=== PATIENT | female | born 1940 | race Caucasian/White ===

== ENCOUNTER 2019-11-14 10:44 | Outpatient (CLI) | payer MEDICARE, MEDICAID, SELFPAY ==
[2019-11-14 13:26] VITALS: O2SAT 87; O2SAT 92; O2SAT 94
== END 2019-11-14 10:45 | disposition home or self-care (01) ==
LOC: RAD 10:50
PROVIDERS: Family Provider Family Medicine; PCP Family Medicine; Visit Provider Internal Medicine Critical Care Medicine
DX: R06.00 Dyspnea, unspecified (principal)
CPT/HCPCS: 94010; 94726; 94729

== ENCOUNTER 2020-07-11 11:13 | Emergency (ER) | payer MEDICARE, MEDICAID, SELFPAY ==
[2020-07-11 11:30] VITALS: BP 150/89; PULSE 78; RESP 20; TEMP 36.8; O2SAT 99; BMI 31.1
--- NOTE | 2020-07-11 11:47 | W.ED.SYNCOPE ---
HPI - Syncope General: Chief Complaint: Syncope Stated Complaint: DIZZY WITH FALL HR AGO Time Seen by Provider: 07/11/20 11:43 History of Present Illness: HPI narrative: 80-year-old female presents the emergency room complaint of a syncopal episode at home patient was looking for a can of food in her pantry she looked up got lightheaded dizzy fell backwards landed on her tailbone and hit her head. She had no complete loss of consciousness. She is not on any blood thinners. Denies any chest pain. MD complaint: felt faint, almost passed out and collapsed Onset (ago): minute(s) Prodromal symptoms: lightheaded Witnessed: No Context: during exertion Injuries sustained associated with event: none Associated symptoms: Reports lightheadedness; Deny abdominal pain, chest pain, fever(s), headache(s), nausea, short of breath, vertigo or weakness Treatments prior to arrival: none Review of Systems Const: Denies: fever(s) ENMT: Denies: throat pain, ear or mastoid pain, nasal discharge or nasal congestion Card: Reports: lightheadedness; Denies: chest pain Resp: Denies: dyspnea, productive cough or non-productive cough GI: Denies: abdominal pain or nausea : Denies: flank pain, difficulty voiding, dysuria, urinary frequency or urinary urgency Skin/Breast: Denies: rash or pruritus Neuro: Denies: headache(s) or vertigo PFS ED PFSH: Medical History (Updated 07/11/20 @ 13:31 by Osman García DO) Colon cancer Congestive heart failure Coronary artery disease Surgical History (Updated 07/11/20 @ 13:31 by Osman García DO) S/P CABG (coronary artery bypass graft) Social History (Updated 07/11/20 @ 13:32 by Osman García DO) Smoking and tobacco status: former smoker Alcohol intake: never Physical Exam Const: COMMON NORMALS: no acute distress GENERAL APPEARANCE: cooperative and comfortable ORIENTATION/CONSCIOUSNESS: Yes awake, Yes oriented to person, Yes oriented to place and Yes oriented to time HENMT: COMMON NORMALS: normocephalic, atraumatic and hearing grossly normal bilaterally HEAD & SCALP: normocephalic and atraumatic Eye: COMMON NORMALS: Equal, round and reactive pupils present, EOMs intact bilaterally, conjunctivae normal and no scleral icterus CONJUNCTIVA: Yes conjunctivae normal PUPIL: Yes Equal, round and reactive pupils present Neck/C-Spine: COMMON NORMALS: full ROM, no lymphadenopathy, supple and no JVD Lymph: LYMPHATIC: no lymphadenopathy noted and no lymphedema noted Resp: COMMON NORMALS: normal respiratory effort, No retractions, No use of accessory muscles and clear to auscultation bilaterally AUSCULTATION: clear to auscultation bilaterally Cardio: COMMON NORMALS: no JVD, regular rate, regular rhythm and No murmurs present (Cardio) RATE: regular rate RHYTHM: regular rhythm GI: COMMON NORMALS: Soft to palpation and No hepatosplenomegaly present AUSCULTATION: Yes normoactive bowel sounds PALPATION: Yes Soft to palpation, No Tenderness to palpation present (GI), No Guarding due to palpation present (GI) and Yes No hepatosplenomegaly present Extremity: COMMON NORMALS: normal to inspection, capillary refill normal, no clubbing, cyanosis or edema, no calf tenderness and no pedal edema Neuro: SENSORIUM/ORIENTATION: Yes oriented to person, Yes oriented to place and Yes oriented to time Skin: COMMON NORMALS: no rashes or lesions noted GENERAL SKIN EXAM: no rashes or lesions noted Course Vital Signs: Vital signs: Vital Signs Temperature 98.2 F 07/11/20 11:30 Pulse Rate 76 07/11/20 13:30 Respiratory Rate 17 07/11/20 13:30 Blood Pressure 172/92 07/11/20 13:30 Pulse Oximetry 100 07/11/20 13:30 MDM - Syncope Lab Data: Labs: Lab Results 07/11/20 07/11/20 07/11/20 Range/Units 12:18 12:37 12:37 WBC 8.3 (4.0-10.0) 10^3/ uL RBC 3.94 L (4.1-5.3) 10^6/u L Hgb 11.2 L (11.5-15.3) g/dL Hct 37.2 (37.0-47.0) % MCV 94.4 (81-99) fL MCH 28.4 (28.0-34.0) pg MCHC 30.1 (30.0-36.0) g/dL RDW 14.9 (12.1-15.1) % Plt Count 272 (130-400) 10^3/c mm MPV 9.7 (7.4-10.4) fL Neut % (Auto) 51.2 % Lymph % (Auto) 36.7 % Sab[place] % (Auto) 7.5 % Eos % (Auto) 3.8 % Baso % (Auto) 0.4 % Neut # (Auto) 4.24 (1.8-7.7) 10^3/u L Lymph # (Auto) 3.0 (0.8-4.8) 10^3/u L [place] # (Auto) 0.6 (0.2-0.9) 10^3/u L Eos # (Auto) 0.3 (0.0-0.8) 10^3/u L Baso # (Auto) 0.0 (0.0-0.1) 10^3/u L Nucleated RBC % (a uto) 0 % Nucleated RBCs # 0.0 /100WBC Sodium 139 (136-145) mmol/L Potassium 4.7 (3.5-5.1) mmol/L Chloride 101 (98-107) mmol/L Carbon Dioxide 24 (22-29) mmol/L Anion Gap 18.7 (5-19) BUN 13 (8-23) mg/dL Creatinine 0.9 (0.5-0.9) mg/dL GFR Calculation Not Reportable Glucose 117 H (65-115) mg/dL Calculated Osmolal ity 285 (285-295) mOsm/k g Calcium 9.1 (8.5-10.5) mg/dL Total Bilirubin 0.4 (0.15-1.2) mg/dL AST 25 (0-32) U/L ALT 14 (0-33) U/L Alkaline Phosphata se 115 H (35-105) IU/L Total Protein 8.4 (6.6-8.7) g/dL Albumin 4.4 (3.5-5.2) g/dL Globulin 4.0 (1.3-4.6) g/dL Urine Color Yellow (Yellow) Urine Appearance Sl cloudy A (CLEAR) Urine pH 5 (5-7) Ur Specific Gravit y 1.020 (1.005-1.030) Urine Protein Trace (Negative) Urine Glucose (UA) Norm (Normal) Urine Ketones Negative (Negative) Urine Blood 2+ H (Negative) Urine Nitrate Negative (Negative) Urine Bilirubin Neg (NEGATIVE) Urine Urobilinogen Neg (Negative) mg/dL Ur Leukocyte Angelique ase 2+ H (Negative) Urine RBC 0-4 H (0-2) /hpf Urine WBC 25-40 H (0-5) /hpf Ur Squamous Epith Cells 0-4 H (0-5) Amorphous Sediment Not Reportable Urine Bacteria 2+ H (NONE) Discharge Plan Discharge Patient Disposition: Home Clinical Impression: Near syncope, Cystitis Condition: Stable Prescriptions: New Macrobid 100 mg capsule 100 mg PO BID 7 Days Qty: 14 RF: 0 No Action atorvastatin 40 mg tablet 40 mg PO DAILY RF: 0 loperamide 2 mg capsule See Rx Instructions .ROUTE .COMPLEX RF: 0 Aspir-81 81 mg Tablet,Delayed Release (Dr/Ec) See Rx Instructions .ROUTE .COMPLEX RF: 0 Tylenol Extra Strength 500 mg Tablet 1,000 mg PO Q4H PRN (Reason: Pain) RF: 0 levothyroxine 75 mcg tablet 75 mcg PO DAILY RF: 0 famotidine 20 mg tablet 20 mg PO BID RF: 0 metoprolol succinate 25 mg tablet extended release 24 hr 25 mg PO DAILY RF: 0 Discharge Orders: Discharge Order (Routine); Ordered 07/11/20 Ordered By: Osman García Referrals: Luis Fernando Solomon DO [Primary Care Provider] - Discharge Diet: Usual diet Discharge Activity: Resume usual activity Activity Restrictions/Additional Instructions: Follow-up with primary care as needed return if that worsening or changing symptoms Discharge Date/Time: 07/11/20 13:45 Coding Level of Care Code ED 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
--- NOTE | 2020-07-11 11:49 | XRR_ITS ---
PROCEDURE INFORMATION: Exam: XR Chest, 1 View Exam date and time: 07/11/2020 12:11 PM Age: 80 years old Clinical indication: Cough and dyspnea; Prior surgery; Surgery type: Heart; Additional info: Dyspnea/cough, dizzy TECHNIQUE: Imaging protocol: XR of the chest Views: 1 view. COMPARISON: CR Chest 1 [place] [id number] 03/23/2016 1:31 PM FINDINGS: Lungs: Interstitial prominence within the lung parenchyma diffusely left lung base greater than right. Favor fibrosis. Consider correlation with CT. Pleural space: Unremarkable. No pleural effusion. No pneumothorax. Heart/Mediastinum: cardiac silhouette is enlarged. Prior sternotomy. Bones/joints: See Heart/Mediastinum finding. XR/XR chest 1V portable [id number] IMPRESSION: Interstitial prominence within the lung parenchyma diffusely left lung base greater than right. Favor fibrosis. Consider correlation with CT.
--- NOTE | 2020-07-11 11:49 | CT_ITS ---
WS: [id number] CT HEAD NONCONTRAST HISTORY: fall, closed head injury TECHNIQUE: Contiguous axial imaging performed through the brain in 2.5 mm imaging. Bone and soft tiss ue windows. Sagittal and coronal reformats reviewed. All CT scans at [facility] use at le ast one of these dose optimization techniques: automated exposure control; mA and/or kV adjustment pe r patient size (includes targeted exams where dose is matched to clinical indication); or iterative r econstruction. DLP: 1683.65 mGy.cm COMPARISON: None available. No acute intracranial hemorrhage, midline shift or mass effect. Mild atrophy and mild chronic ischemic disease. Small prior lacunar infarcts near the caudate heads. Small lacunar infarcts in the external capsules bilaterally. Ventricles: Normal size with no hydrocephalus. Paranasal sinuses: As visualized are clear. Mastoid air cells: Well pneumatized. Calvarium and scalp: No fracture. Small amount of scalp edema over the posterior parietal region. CT/CT head wo con* [id number] IMPRESSION: 1. No acute intracranial hemorrhage or edema. 2. Mild cerebral atrophy and bilateral lacunar infarcts as above. 3. Minimal amount of scalp edema over the posterior midline parietal region.
--- NOTE | 2020-07-11 11:49 | ECG_ITS ---
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 Measurements Intervals [place] Rate: 76 P: MA: -1 QRS: 7 QRSD: 100 T: -4 QT: 405 QTc: 458 Interpretive Statements ATRIAL FIBRILLATION INCOMPLETE RIGHT BUNDLE BRANCH BLOCK [90+ ms QRS DURATION, TERMINAL R IN V1/V2, 40+ ms S IN I/aVL/V4/V5/V6] ABNORMAL RHYTHM ECG Compared to ECG 05/10/2019 10:38:19 Incomplete right bundle-branch block now present Sinus rhythm no longer present Electronically Signed On 07-11-2020 18:50:33 CDT by Mario Alberto Douglas M.D. [email or web address] centerHedvigket[id number]
[2020-07-11 12:37] VITALS: BP 189/92; PULSE 79; RESP 24; O2SAT 99
[2020-07-11 12:42] VITALS: BP 175/110; BP 189/92; BP 195/106; PULSE 79; PULSE 85; PULSE 91
[2020-07-11 12:43] LABS: Urine Color Yellow (Yellow); pH Urine 5 (5-7)
[2020-07-11 12:44] LABS: Bilirubin Urine Neg (NEGATIVE); Blood Urine 2+ (Negative); Glucose Urine UA Norm (Normal); Ketones Urine Negative (Negative); Leukocyte Esterase Urine 2+ (Negative); Nitrate Urine Negative (Negative); Protein Urine Trace (Negative); Urobilinogen Urine Neg (Negative)
[2020-07-11 12:44] LABS: Basophils % 0.4 %; Eosinophils # 0.3 10^3/uL (0.0-0.8); Eosinophils % 3.8 %; Hematocrit 37.2 % (37.0-47.0); Hemoglobin 11.2 g/dL (11.5-15.3); Lymphocytes % 36.7 %; Mean Corpuscular HGB Conc 30.1 g/dL (30.0-36.0); Mean Corpuscular Hemoglobin 28.4 pg (28.0-34.0); Mean Corpuscular Volume 94.4 fL (81-99); Mean Platelet Volume 9.7 fL (7.4-10.4); Monocytes # 0.6 10^3/uL (0.2-0.9); Monocytes % 7.5 %; Neutrophils # 4.24 10^3/uL (1.8-7.7); Neutrophils % 51.2 %; Nucleated Red Blood Cells % 0 %; Platelet Count 272 10^3/cmm (130-400); Red Blood Count 3.94 10^6/uL (4.1-5.3); Red Cell Distribution Width 14.9 % (12.1-15.1); White Blood Count 8.3 10^3/uL (4.0-10.0)
[2020-07-11 12:45] LABS: Add Urine Microscopic? YES; RBC Urine 0-4 /hpf (0-2); WBC Urine 25-40 /hpf (0-5)
[2020-07-11 12:46] LABS: Add Urine Culture? No; Bacteria Urine 2+; Squamous Epithelial Cell Urine 0-4 (0-5)
[2020-07-11 13:03] LABS: Alanine Aminotransferase 14 U/L (0-33); Albumin Level 4.4 g/dL (3.5-5.2); Alkaline Phosphatase 115 IU/L (35-105); Anion Gap 18.7 (5-19); Aspartate Amino Transferase 25 U/L (0-32); Blood Urea Nitrogen 13 mg/dL (8-23); Calcium 9.1 mg/dL (8.5-10.5); Carbon Dioxide 24 mmol/L (22-29); Chloride 101 mmol/L (98-107); Glucose 117 mg/dL (65-115); Osmolality Calculated 285 mOsm/kg (285-295); Potassium 4.7 mmol/L (3.5-5.1); Sodium 139 mmol/L (136-145); Total Bilirubin 0.4 mg/dL (0.15-1.2); Total Protein 8.4 g/dL (6.6-8.7)
[2020-07-11 13:30] VITALS: BP 172/92; PULSE 76; RESP 17; O2SAT 100
== END 2020-07-11 13:45 | disposition home or self-care (01) ==
PROVIDERS: Emergency Provider Family Medicine; PCP Family Medicine
DX: R55 Syncope and collapse (principal); N30.90 Cystitis, unspecified without hematuria; Z79.82 Long term (current) use of aspirin; Z85.038 Personal history of other malignant neoplasm of large intestine; I50.9 Heart failure, unspecified; I25.10 Atherosclerotic heart disease of native coronary artery without angina pectoris; Z95.1 Presence of aortocoronary bypass graft; Z87.891 Personal history of nicotine dependence
CPT/HCPCS: 12345; 36415; 70450; 71045; 80053; 81001; 85025; 93005; 99284

== ENCOUNTER 2021-02-13 16:28 | Inpatient (IN) | payer MEDICARE, MEDICAID, SELFPAY ==
[2021-02-13] VITALS (28 sets, daily range): BP systolic 120–154; BP diastolic 47–87; PULSE 0–124; RESP 18–35; TEMP 36.4–36.9; O2SAT 93–100; BMI 32.1
--- NOTE | 2021-02-13 16:33 | XR_ITS ---
WS: [id number] Portable AP upright chest, 02/13/2021 Clinical Data: dyspnea Comparison: Portable chest, 07/11/2020. Findings: Bilateral interstitial changes seen throughout the lungs which remain the same. The heart i s enlarged. Midline sternotomy sutures are present. The aortic arch and descending aorta show calcifi cation and mild tortuosity. No nodules, masses or effusions are seen. No pneumothorax or pneumonia is present. There is osteoarthritis of the right shoulder joint. XR/XR chest 1V portable [id number] Impression: 1. Chronic interstitial changes throughout both lungs. 2. Atherosclerosis and cardiomegaly.
--- NOTE | 2021-02-13 16:39 | ECG_ITS ---
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
--- NOTE | 2021-02-13 17:03 | ED_ITS ---
HPI - SOB/Dyspnea General: Chief Complaint: Shortness of Breath/Dyspnea Stated Complaint: DIFF BREATHING, AFIB Time Seen by Provider: 02/13/21 16:33 History of Present Illness: HPI Narrative: Is an 81-year-old female with past medical history atrial fibrillation on Eliquis, congestive heart failure, COPD with 2 L oxygen at home who comes to the ER complaining of increased shortness of breath for days to weeks she says up to a month. She says she has general weakness and feels fatigued and has not been able to do the activities she normally does because of her shortness of breath. MD elicited complaint: shortness of breath Pertinent past history: COPD and congestive heart failure Severity: moderate Exacerbating factors: exertion Relieving factors: oxygen Known history of: COPD, congestive heart failure and other (A. fib) Associated symptoms: Deny abdominal pain, chest pain, dizziness, extremity pain, orthopnea, palpitations or polyuria Review of Systems General: Reports: 10 or more systems reviewed and unremarkable except in HPI and below Const: Denies: fatigue Eyes: Denies: change in vision, blurry vision or eye redness ENMT: Denies: throat pain, swelling of lips/tongue, ear or mastoid pain or nasal congestion Card: Denies: chest pain, palpitations, irregular heart rhythm, edema, dyspnea on exertion or orthopnea Resp: Denies: dyspnea, productive cough or non-productive cough GI: Denies: abdominal pain, diarrhea or GI cramping : Denies: flank pain, difficulty voiding, urinary frequency or urinary urgency Musc: Denies: neck pain, back pain, extremity pain, joint pain, joint redness, limited range of motion or muscle weakness Skin/Breast: Denies: rash, pruritus, erythema, skin pain or skin tenderness Neuro: Denies: headache(s), numbness in extremities, weakness in extremities, sensory changes, difficulty walking, dizziness, confusion or Slurred speech present Psych: Denies: anxiety or depression Endo: Denies: polyuria All/Imm: Denies: urticaria, throat swelling or tongue swelling PFSH ED PFSH: Medical History Anemia Arteriosclerotic coronary artery disease Cholelithiasis Colon cancer Congestive heart failure COPD (chronic obstructive pulmonary disease) 2L NC continuous use Coronary artery disease Dyslipidemia Dyspnea Sleep apnea Ventral hernia Surgical History History of hemicolectomy History of PTCA Hx of bilateral cataract extraction Hx of colonoscopy Hx of esophagogastroduodenoscopy S/P CABG (coronary artery bypass graft) Social History Smoking and tobacco status: former smoker Alcohol intake: never Substance/Drug Use: never Physical Exam Const: COMMON NORMALS: no acute distress, average body habitus, patient oriented x3, no limitations, healthy appearing, alert and well nourished GENERAL APPEARANCE: cooperative, comfortable, well kempt and well developed ORIENTATION/CONSCIOUSNESS: Yes awake, Yes oriented to person, Yes oriented to place and Yes oriented to time HENMT: COMMON NORMALS: normocephalic, external ears normal and Normal external nose present HEAD & SCALP: normal to inspection and normocephalic NOSE: Normal external nose present EXTERNAL EAR: Yes external ears normal MOUTH: Normal oral and palatal mucosa present THROAT: posterior oropharynx normal Eye: COMMON NORMALS: Equal, round and reactive pupils present and EOMs intact bilaterally GENERAL EYE: appearance normal, both eyes and all related structures PUPIL: Yes Equal, round and reactive pupils present Neck/C-Spine: COMMON NORMALS: full ROM, no lymphadenopathy, no meningeal signs and no JVD GENERAL: Yes normal visual inspection Lymph: LYMPHATIC: no lymphadenopathy noted Chest: COMMONS NORMALS: normal inspection of the chest and normal palpation of entire chest wall Resp: COMMON NORMALS: normal respiratory effort, No retractions, No use of accessory muscles, clear to auscultation bilaterally and percussion normal EFFORT & INSPECTION: Yes able to speak in complete sentences AUSCULTATION: clear to auscultation bilaterally PERCUSSION: percussion normal Cardio: COMMON NORMALS: no JVD, S1 normal heart sound present, S2 normal heart sound present and Peripheral pulses 2+ throughout RATE: tachycardic RHYTHM: abnormal rhythm regularly irregular HEART SOUNDS: S1 normal heart sound present and S2 normal heart sound present PERIPHERAL PULSES: Peripheral pulses 2+ throughout GI: COMMON NORMALS: Normal to inspection, nondistended, normoactive bowel sounds present, Soft to palpation, non-tender and no masses INSPECTION: Yes normal to inspection PALPATION: Yes Soft to palpation : COMMON NORMALS: Yes no CVA tenderness BLADDER/KIDNEY EXAM: Yes no CVA tenderness Back/Pelvis: COMMON NORMALS: no CVA tenderness, thoracic and lumbar spine normal to inspection, no thoracic nor lumbar tenderness and thoraco-lumbar ROM normal Extremity: COMMON NORMALS: normal to inspection, full ROM, capillary refill normal, no joint enlargement and no pedal edema GENERAL: Yes normal exam except as noted Neuro: COMMON NORMALS: patient oriented x3, CN's II-XII intact bilaterally, moves all extremities, no focal motor deficits, no sensory deficits noted and gait normal SENSORIUM/ORIENTATION: Yes alert, Yes oriented to person, Yes oriented to place and Yes oriented to time MENINGEAL SIGNS: Yes no meningeal signs Psych: COMMON NORMALS: mental status grossly normal, Normal thought process present, cooperative, normal affect and speech normal APPEARANCE: Yes well kempt ATTITUDE: Yes calm SPEECH: Yes normal speech THOUGHT PROCESS: Normal thought process present Skin: COMMON NORMALS: no rashes or lesions noted GENERAL SKIN EXAM: no rashes or lesions noted Course Vital Signs: Vital signs: Vital Signs Temperature 98.0 F 02/13/21 16:36 Pulse Rate 95 02/13/21 19:15 Respiratory Rate 18 02/13/21 19:15 Blood Pressure 154/63 02/13/21 19:15 Pulse Oximetry 99 02/13/21 19:15 MDM - SOB/Dyspnea MDM Narrative: Medical decision making narrative: To the ER complaining of shortness of breath and generalized weakness increasing for the last month. Her symptoms were unclear as she is satting well and breathing well on her normal 2 L. She is in A. fib with a rate in the 90s however her hemoglobin came back at 4.3 and she added that she has been having black stools over the past month as well. She takes Eliquis. Discussed with Dr. Walton who will follow the case. Discussed with Dr. Nickerson who accepts inpatient. Lab Data: Labs: Lab Results 02/13/21 02/13/21 02/13/21 Range/Units 17:27 17:27 17:27 WBC 7.3 (4.0-10.0) 10^3/ uL RBC 1.58 L (4.1-5.3) 10^6/u L Hgb 4.3 L* (11.5-15.3) g/dL Hct 15.8 L* (37.0-47.0) % MCV 100.0 H (81-99) fL MCH 27.2 L (28.0-34.0) pg MCHC 27.2 L (30.0-36.0) g/dL RDW 18.5 H (12.1-15.1) % Plt Count 310 (130-400) 10^3/c mm MPV 10.6 H (7.4-10.4) fL Neut % (Auto) 61.5 % Lymph % (Auto) 24.6 % [place] % (Auto) 10.7 % Eos % (Auto) 2.6 % Baso % (Auto) 0.3 % Neut # (Auto) 4.48 (1.8-7.7) 10^3/u L Lymph # (Auto) 1.8 (0.8-4.8) 10^3/u L [place] # (Auto) 0.8 (0.2-0.9) 10^3/u L Eos # (Auto) 0.2 (0.0-0.8) 10^3/u L Baso # (Auto) 0.0 (0.0-0.1) 10^3/u L Nucleated RBC % (a uto) 0.5 % Nucleated RBCs # 0.0 /100WBC D-Dimer 0.29 (0-0.59) ug/mIFE U Sodium Cancelled Potassium Cancelled Chloride Cancelled Carbon Dioxide Cancelled Anion Gap Cancelled BUN Cancelled Creatinine Cancelled GFR Calculation Cancelled Glucose Cancelled Calculated Osmolal ity Cancelled Lactate (0.5-2.2) mmol/L Calcium Cancelled Total Bilirubin Cancelled AST Cancelled ALT Cancelled Alkaline Phosphata se Cancelled Troponin T Baselin e (0-10) ng/L NT-Pro-B Natriuret Pep Cancelled Total Protein Cancelled Albumin Cancelled Globulin Cancelled Urine Color (Yellow) Urine Appearance (CLEAR) Urine pH (5-7) Ur Specific Gravit y (1.005-1.030) Urine Protein (Negative) Urine Glucose (UA) (Normal) Urine Ketones (Negative) Urine Blood (Negative) Urine Nitrate (Negative) Urine Bilirubin (Negative) Urine Urobilinogen (Negative) mg/dL Ur Leukocyte Angelique ase (Negative) Urine RBC (0-2) /hpf Urine WBC (0-5) /hpf Ur Squamous Epith Cells (0-5) /hpf Amorphous Sediment Urine Bacteria (NONE) /hpf SARS-CoV-2 Ag (Rap id) (Negative) 02/13/21 02/13/21 02/13/21 Range/Units 17:27 17:27 17:27 WBC (4.0-10.0) 10^3/ uL RBC (4.1-5.3) 10^6/u L Hgb (11.5-15.3) g/dL Hct (37.0-47.0) % MCV (81-99) fL MCH (28.0-34.0) pg MCHC (30.0-36.0) g/dL RDW (12.1-15.1) % Plt Count (130-400) 10^3/c mm MPV (7.4-10.4) fL Neut % (Auto) % Lymph % (Auto) % [place] % (Auto) % Eos % (Auto) % Baso % (Auto) % Neut # (Auto) (1.8-7.7) 10^3/u L Lymph # (Auto) (0.8-4.8) 10^3/u L [place] # (Auto) (0.2-0.9) 10^3/u L Eos # (Auto) (0.0-0.8) 10^3/u L Baso # (Auto) (0.0-0.1) 10^3/u L Nucleated RBC % (a uto) % Nucleated RBCs # /100WBC D-Dimer (0-0.59) ug/mIFE U Sodium Potassium Chloride Carbon Dioxide Anion Gap BUN Creatinine GFR Calculation Glucose Calculated Osmolal ity Lactate 2.2 (0.5-2.2) mmol/L Calcium Total Bilirubin AST ALT Alkaline Phosphata se Troponin T Baselin e 21 H (0-10) ng/L NT-Pro-B Natriuret Pep Total Protein Albumin Globulin Urine Color Yellow (Yellow) Urine Appearance Clear (CLEAR) Urine pH 5 (5-7) Ur Specific Gravit y 1.020 (1.005-1.030) Urine Protein Neg (Negative) Urine Glucose (UA) Norm (Normal) Urine Ketones Negative (Negative) Urine Blood Neg (Negative) Urine Nitrate Positive H (Negative) Urine Bilirubin Neg (Negative) Urine Urobilinogen 1 H (Negative) mg/dL Ur Leukocyte Angelique ase Trace H (Negative) Urine RBC 0-4 H (0-2) /hpf Urine WBC 25-40 H (0-5) /hpf Ur Squamous Epith Cells 0-4 H (0-5) /hpf Amorphous Sediment Not Reportable Urine Bacteria 4+ H (NONE) /hpf SARS-CoV-2 Ag (Rap id) (Negative) 02/13/21 02/13/21 Range/Units 17:27 18:47 WBC (4.0-10.0) 10^3/ uL RBC (4.1-5.3) 10^6/u L Hgb (11.5-15.3) g/dL Hct (37.0-47.0) % MCV (81-99) fL MCH (28.0-34.0) pg MCHC (30.0-36.0) g/dL RDW (12.1-15.1) % Plt Count (130-400) 10^3/c mm MPV (7.4-10.4) fL Neut % (Auto) % Lymph % (Auto) % [place] % (Auto) % Eos % (Auto) % Baso % (Auto) % Neut # (Auto) (1.8-7.7) 10^3/u L Lymph # (Auto) (0.8-4.8) 10^3/u L [place] # (Auto) (0.2-0.9) 10^3/u L Eos # (Auto) (0.0-0.8) 10^3/u L Baso # (Auto) (0.0-0.1) 10^3/u L Nucleated RBC % (a uto) % Nucleated RBCs # /100WBC D-Dimer (0-0.59) ug/mIFE U Sodium 142 Potassium 5.2 H Chloride 110 H Carbon Dioxide 24 Anion Gap 13.2 BUN 31 H Creatinine 0.8 GFR Calculation Not Reportable Glucose 118 H Calculated Osmolal ity 302 H Lactate (0.5-2.2) mmol/L Calcium 8.3 L Total Bilirubin 0.4 AST 19 ALT 11 Alkaline Phosphata se 88 Troponin T Baselin e (0-10) ng/L NT-Pro-B Natriuret Pep 610 H Total Protein 5.8 L Albumin 3.1 L Globulin 2.7 Urine Color (Yellow) Urine Appearance (CLEAR) Urine pH (5-7) Ur Specific Gravit y (1.005-1.030) Urine Protein (Negative) Urine Glucose (UA) (Normal) Urine Ketones (Negative) Urine Blood (Negative) Urine Nitrate (Negative) Urine Bilirubin (Negative) Urine Urobilinogen (Negative) mg/dL Ur Leukocyte Angelique ase (Negative) Urine RBC (0-2) /hpf Urine WBC (0-5) /hpf Ur Squamous Epith Cells (0-5) /hpf Amorphous Sediment Urine Bacteria (NONE) /hpf SARS-CoV-2 Ag (Rap id) Negative (Negative) Discharge Plan Discharge Patient Disposition: Admitted As Inpatient Clinical Impression: Atrial fibrillation, persistent, Acute upper gastrointestinal bleeding, Severe anemia Condition: Stable Coding Level of Care Code ED 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
[2021-02-13 17:42] LABS: Basophils % 0.3 %; Eosinophils # 0.2 10^3/uL (0.0-0.8); Eosinophils % 2.6 %; Lymphocytes # 1.8 10^3/uL (0.8-4.8); Lymphocytes % 24.6 %; Mean Corpuscular HGB Conc 27.2 g/dL (30.0-36.0); Mean Corpuscular Hemoglobin 27.2 pg (28.0-34.0); Mean Platelet Volume 10.6 fL (7.4-10.4); Monocytes # 0.8 10^3/uL (0.2-0.9); Monocytes % 10.7 %; Neutrophils # 4.48 10^3/uL (1.8-7.7); Neutrophils % 61.5 %; Nucleated Red Blood Cells % 0.5 %; Platelet Count 310 10^3/cmm (130-400); Red Blood Count 1.58 10^6/uL (4.1-5.3); Red Cell Distribution Width 18.5 % (12.1-15.1); White Blood Count 7.3 10^3/uL (4.0-10.0)
[2021-02-13 18:23] LABS: Glucose Urine UA Norm (Normal); Protein Urine Neg (Negative); Urine Appearance Clear (CLEAR); Urine Color Yellow (Yellow); pH Urine 5 (5-7)
[2021-02-13 18:24] LABS: Add Urine Culture? Yes; Add Urine Microscopic? YES; Bacteria Urine 4+ /hpf; Bilirubin Urine Neg (Negative); Blood Urine Neg (Negative); Ketones Urine Negative (Negative); Leukocyte Esterase Urine Trace (Negative); Nitrate Urine Positive (Negative); RBC Urine 0-4 /hpf (0-2); Squamous Epithelial Cell Urine 0-4 /hpf (0-5); Urobilinogen Urine 1 mg/dL (Negative); WBC Urine 25-40 /hpf (0-5)
[2021-02-13 18:30] LABS: Lactate (Lactic Acid level) 2.2 mmol/L (0.5-2.2)
[2021-02-13 18:36] LABS: Troponin(5th) Baseline 21 ng/L (0-10)
--- NOTE | 2021-02-13 18:39 | ECG_ITS ---
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1940 Requested By: George Liu Order Number: [id number] Reading MD: LIZETTE RAZA Measurements Intervals [place] Rate: 119 P: SD: QRS: 8 QRSD: 100 T: 150 QT: 279 QTc: 394 Interpretive Statements ATRIAL FIBRILLATION WITH RAPID VENTRICULAR RESPONSE ST DEVIATION AND MODERATE T-WAVE ABNORMALITY, CONSIDER LATERAL ISCHEMIA [-0.1+ mV T WAVE IN I/aVL/V5/V6] Compared to ECG 02/13/2021 16:47:03 T-wave abnormality now present Possible ischemia now present ST (T wave) deviation no longer present Electronically Signed On 02-13-2021 20:25:20 CDT by LIZETTE RAZA [id number]
[2021-02-13 18:40] LABS: Hematocrit 15.8 % (37.0-47.0); Hemoglobin 4.3 g/dL (11.5-15.3)
[2021-02-13 18:48] LABS: SARS Covid-2 Antigen Negative (Negative)
[2021-02-13] MEDS: cefTRIAXone 1,000 MG in sodium chloride 0.9% (plus) 50 ML 100 MG IV (19:14)
[2021-02-13 19:18] LABS: D Dimer 0.29 ug/mIFEU (0-0.59)
[2021-02-13 19:27] LABS: Alanine Aminotransferase 11 U/L (0-33); Albumin Level 3.1 g/dL (3.5-5.2); Alkaline Phosphatase 88 IU/L (35-105); Anion Gap 13.2 (5-19); Aspartate Amino Transferase 19 U/L (0-32); Blood Urea Nitrogen 31 mg/dL (8-23); Calcium 8.3 mg/dL (8.5-10.5); Carbon Dioxide 24 mmol/L (22-29); Chloride 110 mmol/L (98-107); Globulin 2.7 g/dL (1.3-4.6); Glucose 118 mg/dL (65-115); NT Pro B Type Natriuretic Pept 610 pg/mL (0-450); Osmolality Calculated 302 mOsm/kg (285-295); Potassium 5.2 mmol/L (3.5-5.1); Sodium 142 mmol/L (136-145); Total Bilirubin 0.4 mg/dL (0.15-1.2); Total Protein 5.8 g/dL (6.6-8.7)
--- NOTE | 2021-02-13 19:31 | P.HP_ITS ---
Providers/Chief Complaint Primary Care Provider: Luis Fernando Solomon DO Chief Complaint: DIFF BREATHING, AFIB History of Present Illness Shankar Cam is a 81 year old female with history of former alcohol use, invasive adenocarcinoma ascending colon status post resection currently in remission, established coronary artery disease status post CABG, A. fib chronic anticoagulation with Eliquis last dose was this morning, presented today with chief complaint of fatigue, lethargy and shortness of breath. Patient is stating that for last 3 weeks she is extremely constipated, and whenever she moves her bowel her feces will be dark-colored which she describing as charcoal colored. She has not noticed any fresh bleed per rectum. No hemoptysis hematuria or any other bleeding. She also saw Dr. Ventura for dark-colored stool and she specifically asked about blood in her stool however no further recommendations were made to change her medications. In last 3 weeks she has become more weak and lethargic and gets shortness of breath on mild activity, she has asked her son to live with her to help her with daily activities. She is denying chest pain, strokelike symptoms, dysuria, abdominal pain. In the ER her blood pressure was on higher side 148/80mmhg, pulse 92, A. fib without RVR respiratory rate 20 afebrile she was saturating well on 2 L nasal cannula, in the ER stool guaiac test was positive, 3 units PRBC requested, Dr. Walton notified and consulted, her last dose of Eliquis was this morning. Severe anemia with macrocytosis, mild hyperkalemia, negative delta troponin, A. fib without RVR EKG without ischemic or infarctive changes, no hematuria, Covid antigen negative, Covid test was requested because of her symptoms of shortness of breath and weakness Review of Systems Const: Reports: chills, body aches, change in appetite, fatigue and malaise; Denies: fever(s) Eyes: Denies: change in vision ENMT: Denies: throat pain Card: Reports: dyspnea on exertion; Denies: chest pain Resp: Reports: dyspnea GI: Reports: constipation and melena; Denies: abdominal pain : Denies: flank pain Musc: Denies: neck pain Skin/Breast: Denies: rash Neuro: Denies: headache(s) Psych: Denies: anxiety Endo: Denies: polyuria Marvin/Lymph: Denies: easy bruising All/Imm: Denies: urticaria Medications/Allergies Home Medications Medication Instructions Recorded Confirmed Last Taken Type acetaminophen [Tylenol Extra 1,000 mg PO Q4H PRN 07/11/20 02/13/21 Unknown History Strength] atorvastatin 40 mg PO DAILY@0700 07/11/20 02/13/21 02/13/21 History levothyroxine 75 mcg PO DAILY@69907/11/20 02/13/21 02/13/21 History metoprolol succinate 25 mg PO DAILY@0807/11/20 02/13/21 02/13/21 History apixaban 5 mg PO BID@0700,1900 02/13/21 02/13/21 02/13/21 History aspirin [Aspir-81] 81 mg PO DAILY@0802/13/21 02/13/21 02/13/21 History multivit with min-folic acid 1 tab PO DAILY@0702/13/21 02/13/21 02/13/21 History [Multivitamin Gummies] tamsulosin 0.4 mg PO DAILY@0802/13/21 02/13/21 02/13/21 History Allergies Allergy/AdvReac Type Severity Reaction Status Date / Time No Known Allergies Allergy Verified 09/21/20 09:31 PFSH Acute PFSH: Medical History Anemia Arteriosclerotic coronary artery disease Cholelithiasis Colon cancer Congestive heart failure COPD (chronic obstructive pulmonary disease) 2L NC continuous use Coronary artery disease Dyslipidemia Dyspnea Sleep apnea Ventral hernia Surgical History History of hemicolectomy History of PTCA Hx of bilateral cataract extraction Hx of colonoscopy Hx of esophagogastroduodenoscopy S/P CABG (coronary artery bypass graft) Family History (Updated 02/13/21 @ 21:37 by Mario Alberto Nickerson MD) Brother Cancer Sister Cancer Other CAD (coronary artery disease) Social History (Updated 02/13/21 @ 21:44 by Mario Alberto Nickerson MD) Smoking and tobacco status: smoker, details unknown cigarettes [ Other cigarette details: Stop smoking 25 years ago, she used to smoke 1 pack a day for 1 to 2 years ] Alcohol intake: former Substance/Drug Use: never Previous occupational history: Retired [employer] Vitals/I&O/Wt Last Vital Signs Temp 98.0 F 02/13/21 16:36 Pulse 95 02/13/21 19:15 Resp 18 02/13/21 19:15 BP 154/63 02/13/21 19:15 Pulse Ox 99 02/13/21 19:15 Weight last 48 hrs Weight 79.832 kg Physical Exam Narrative: EXAM NARRATIVE: Very pleasant female who was laying in right lateral position when I entered the room she was saturating well on 2 L nasal cannula Stool guaiac test positive in the ER S1, S2 variable A. fib without RVR Systolic murmur Clinically does not show active signs of fluid overload No murmur appreciated Abdomen soft nontender bowel sounds hyperactive Lower extremity no edema gangrene or ulcer EOMI, PERRLA no neurological deficits Very pleasant communicative with good insight appropriate mood and affect No joint swelling or skin changes of cellulitis Her breathing is not labored, no audible stridor or wheezing Pale complexion Data : 02/13/21 17:27 02/13/21 18:47 A&P Assessment and plan (1) Acute upper gastrointestinal bleeding: Status: Acute (2) Black tarry stools: Status: Acute (3) Severe anemia: Status: Acute (4) Atrial fibrillation, persistent: Status: Acute (5) COPD (chronic obstructive pulmonary disease): Status: Chronic Additional A&P Information Black tarry stool severe anemia Stool guaiac test positive Will require 3 units PRBC Last Eliquis dose was this morning, we will keep her n.p.o., I will give her 1 dose of mag citrate and lactulose to keep her prepared for EGD and colonoscopy She has multiple risk factors for GI bleed such as colon cancer, former alcohol use, current use of Eliquis Hemodynamically she is stable I would not use any reversal agent at this point Dr. Walton notified and consulted by ER physician Dr. Grove N.p.o. Would avoid giving fluids along 3 units PRBC, use Lasix in between blood transfusion Atrial fibrillation without RVR Continue metoprolol hold Eliquis(it will be on hold for at least 2 to 3 weeks after endoscopy, if her hemoglobin stays stable after PCP follow-up likely can resume Eliquis, kindly reevaluate benefits versus risk of bleeding before discharge) COPD without acute exacerbation: Currently saturating well on 2 L nasal cannula Established coronary disease without any active chest pain, history of CABG and stent placement Grade 1 diastolic function preserved ejection fraction No active signs of fluid overload we will give Lasix in between blood transfusion Avoid maintenance fluid for now She also has history of mitral valve regurgitation N.p.o. DVT prophylaxis SCDs Full code, wants a trial of CPR & intubation but does not want to stay on ventilator for prolonged period of time Attestations Medical Necessity Statement*: Anticipating stay in the hospital cross more than 2 midnights for severe anemia requiring blood transfusion she has history of colon cancer, diastolic dysfunction, she took Eliquis this morning which will prolong her hospitalization, she will need EGD and colonoscopy Time Spent in Patient Care: (>than 50% of time spent in counselling and/or direct pt care on unit) . 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
[2021-02-13] MEDS: pantoprazole 40 mg SDV IVP (19:48)
[2021-02-13 19:59] LABS: Troponin 5 2HR 19.58 ng/L (0-10)
[2021-02-13 20:11] LABS: Troponin 5 2HR Delta -1.42 ABS# (0-10)
[2021-02-13] MEDS: sodium chloride 0.9% 1,000 ML 100 ML IV (20:37)
[2021-02-13 22:18] LABS: Ferritin 14 ng/mL (15-150); Iron 20 ug/dL (37-145); Total Iron Binding Capacity 400 mcg/dl; Unsaturated Iron Binding 380 ug/dL (112-347)
[2021-02-13 22:35] LABS: Vitamin B12 381 pg/mL (232-1245)
--- NOTE | 2021-02-13 22:39 | ECG_ITS ---
[facility] Test Date: 2021-02-13 Pat Name: Shankar Cam Department: Room: 278 Gender: Female Coper Hand: : 1940 Requested By: George Liu Order Number: [id number] Alex MD: LIZETTE RZAA Measurements Intervals [place] Rate: 93 P: NM: QRS: 47 QRSD: 86 T: 22 QT: 384 QTc: 479 Interpretive Statements SINUS RHYTHM LOW QRS VOLTAGE IN PRECORDIAL LEADS [QRS DEFLECTION < 1.0 mV IN CHEST LEADS] MODERATE ST DEPRESSION [0.05+ mV ST DEPRESSION] Compared to ECG 02/13/2021 18:48:30 Atrial fibrillation no longer present T-wave abnormality no longer present Possible ischemia no longer present Electronically Signed On 02-15-2021 20:23:44 CDT by LIZETTE RAZA [id number]
[2021-02-13] MEDS: magnesium citrate Btl 296 mL 150 ML PO (22:46)
--- NOTE | 2021-02-13 23:27 | PC.NURSE ---
This nurse called Dr. Nickerson for clarification of Lasix orders. Per Dr. Nickerson pt is to receive 20 mg IVP lasix after first blood transfusion and then 20 mg Lasix IVP Q24H.
[2021-02-13] MEDS: FUROsemide 10 mg/mL SDV 2mL 20 MG IVP (23:48)
[2021-02-14] VITALS (19 sets, daily range): BP systolic 111–153; BP diastolic 62–86; PULSE 60–94; RESP 16–20; TEMP 36.2–36.9; O2SAT 97–100
--- NOTE | 2021-02-14 05:49 | P.CONIM_ITS ---
Providers/Reason For Consult Consulting Physican/Specialty*: General Surgery Pavan Walton MD Reason for Consult*: Symptomatic anemia, melena. Attending Physician: Mario Alberto Nickerson MD Primary Care Provider: Luis Fernando Solomon DO History of Present Illness History of Present Illness Shankar Cam is a 81 year old female who was admitted yesterday with weakness and shortness of breath. She was found to be significantly anemic. She mentions that she has had black tarry stool over the last month. She has been on Eliquis, but is not sure why. She does have a history of atrial fibrillation as well as coronary artery disease and is status post CABG in 2007. The patient denies any upper GI symptoms including dysphagia, epigastric pain, heartburn, etc. They told me I had some type of hernia. She has been found to have a hiatal hernia on an EGD back in 2006, but this was not mentioned on an EGD in 2019. She did not have any areas of inflammation on that EGD, either. Her colonoscopy in 2019 did not reveal any abnormalities, but she is status post right hemicolectomy in 2006 for a small malignancy. The patient denies any NSAID use other than perhaps a baby aspirin. The patient is now off her Eliquis, or at least is on hold. I have been asked to discuss another EGD with the patient. Review of Systems General: Reports: 10 or more systems reviewed and unremarkable except in HPI and below Resp: Reports: dyspnea GI: Reports: melena; Denies: abdominal pain, nausea or vomiting Neuro: Reports: other (Weakness prior to coming into the hospital) Meds/Allergies Home Medications and Allergies Home Medications Medication Instructions Recorded Confirmed Last Taken Type acetaminophen [Tylenol Extra 1,000 mg PO Q4H PRN 07/11/20 02/13/21 Unknown History Strength] atorvastatin 40 mg PO DAILY@0707/11/20 02/13/21 02/13/21 History levothyroxine 75 mcg PO DAILY@0707/11/20 02/13/21 02/13/21 History metoprolol succinate 25 mg PO DAILY@0800 07/11/20 02/13/21 02/13/21 History apixaban 5 mg PO BID@0700,1900 02/13/21 02/13/21 02/13/21 History aspirin [Aspir-81] 81 mg PO DAILY@0800 02/13/21 02/13/21 02/13/21 History multivit with min-folic acid 1 tab PO DAILY@0702/13/21 02/13/21 02/13/21 History [Multivitamin Gummies] tamsulosin 0.4 mg PO DAILY@0800 02/13/21 02/13/21 02/13/21 History Allergies Allergy/AdvReac Type Severity Reaction Status Date / Time No Known Allergies Allergy Verified 09/21/20 09:31 Current Medications Current Medications Generic Name Dose Route Start Last Admin Trade Name Freq PRN Reason Stop Dose Admin Furosemide 20 mg 02/13/21 22:00 02/13/21 23:23 Furosemide 10 Mg/Ml Sdv 2ml IVP 02/15/21 09:00 Not Given Q24H ANDRZEJ PFSH Acute PFSH: Medical History (Updated 02/14/21 @ 05:29 by Pavan Walton MD) Anemia Arteriosclerotic coronary artery disease Cardiomegaly Cholelithiasis Colon cancer 2006 Congestive heart failure COPD (chronic obstructive pulmonary disease) 2L NC continuous use Coronary artery disease Dyslipidemia Dyspnea Family history of ME (myocardial infarction) Sleep apnea Ventral hernia Surgical History (Updated 02/14/21 @ 05:29 by Pavan Walton MD) History of hemicolectomy Right 2006 History of PTCA Hx of bilateral cataract extraction Hx of colonoscopy 06/2019 -- no abnormalities (ileocolic anastomosis) Hx of esophagogastroduodenoscopy 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 Family History (Updated 02/13/21 @ 21:37 by Mario Alberto Nickerson MD) Brother Cancer Sister Cancer Other CAD (coronary artery disease) Social History (Updated 02/13/21 @ 21:44 by Mario Alberto Nickerson MD) Smoking and tobacco status: smoker, details unknown cigarettes [ Other cigarette details: Stop smoking 25 years ago, she used to smoke 1 pack a day for 1 to 2 years ] Alcohol intake: former Substance/Drug Use: never Previous occupational history: Retired [employer] Vitals/I&O/Wt Last Vital Signs Temp 97.7 F 02/14/21 05:05 Pulse 66 02/14/21 05:05 Resp 18 02/14/21 05:05 BP 124/77 04/08/21 05:05 Pulse Ox 99 02/14/21 05:05 02/13/21 02/13/21 02/14/21 14:59 22:59 06:59 Intake Total 50 / 750 700 / 750 Output Total 750 / 750 Balance 50 / 0 -50 / 0 Weight last 48 hrs Weight 176 lb Physical Exam Narrative: EXAM NARRATIVE: The patient was encountered in her hospital room. She does not appear to be in any acute distress. Her pupils seem equal. No carotid bruits are heard. The lungs initially revealed somewhat of a wheeze on the left side but on subsequent breaths that was gone. Her heart seems regular at first but she clearly has some irregularities at times after listening for a while. The abdomen is moderately obese but is completely soft and nontender. I cannot feel any masses. The extremities may reveal some very mild edema. Neurologically the patient can move all limbs to command. A&P Assessment and plan (1) Severe anemia: The patient has been transfused following her presentation hemoglobin value of 4.3 (above) and is now feeling better. Repeat CBC is apparently still pending this morning. Her Eliquis is on hold. Status: Acute (2) Black tarry stools: This has been going on for about a month. The patient says she does not recall this ever happening before. She is normally on Eliquis twice daily. She denies any abdominal or upper GI symptoms otherwise, however. She had an EGD done back in 2019 which did not reveal any significant abnormalities, but when she was found to have what was thought to be a hiatal hernia on a previous EGD. I discussed another EGD with the patient. Details and risks of the procedure were gone over. She has been through this before and seems to understand. She agrees to proceed. She has been n.p.o. I will make arrangements for an EGD this morning. Status: Acute Consult Attestations Medical Necessity Statement: See admitting service's notation. Coding Level of Care Code Acute [employer] [facility] Fwd Diagnoses Severe anemia D64.9 Black tarry stools K92.1
[2021-02-14] MEDS: levothyroxine 75 mcg Tablet PO (06:17)
[2021-02-14] MEDS: atorvastatin 40 mg Tablet PO (06:17)
--- NOTE | 2021-02-14 06:28 | PC.NURSE ---
vital signs accidentally charted for 05, vital signs re-charted on TAR at correct time of 0605.
[2021-02-14] MEDS: sodium chloride 0.9% 1,000 ML 30 ML IV (07:45)
--- NOTE | 2021-02-14 08:03 | P.ANESASSM_ITS ---
Pre-Anesthetic Assessment Pre-Anesthetic Assessment: Height/Weight: Height 1.57 m Weight 79.832 kg Temp Pulse Resp BP Pulse Ox 97.1 F L 75 18 153/86 99 02/14/21 07:40 02/14/21 07:40 02/14/21 07:40 02/14/21 07:40 02/14/21 07:40 Preop Diagnosis: Gi bleed Proposed Procedure: Operation Date: 02/14/21 08:30 Proposed Procedures p EGD(Not Applicable) - Pavan Walton MD Familial anesthetic complications: none Was Beta Marisela taken within 24 hours: Yes Was Clonidine taken within 24 hours: N/A Last intake: Intake Last Liquid Date 02/13/21 Last Liquid Time 10:00 Last Solid Date 02/13/21 Last Solid Time 09:00 Social: Social History: No alcohol and No tobacco Exam: Pre-Anes Outpt Exam: alert, oriented x 3, clear to auscultation bilaterally and regular rate & rhythm Airway: Cervical ROM: WNL MP: 4 Dentition: Other (no teeth) Pulmonary: Pulmonary: COPD (2 L NC continously) and Sleep apnea CV/HEM: CV/HEM: Afib, CAD (s/p cabg) and HTN Metabolic: Metabolic: Thyroid Anesthetic Plan: ASA status: 4 Anesthesia: MAC Other: received 3 units prbcs Risk of > 500 ml blood loss (7ml/kg in children): No Meds/Allergies Current Medications: Current Medications Generic Name Dose Route Start Last Admin Trade Name Freq PRN Reason Stop Dose Admin Atorvastatin Calci um 40 mg 02/14/21 07:00 02/14/21 06:17 Atorvastatin 40 Mg Tablet PO 40 mg DAILY@0700 ANDRZEJ Administration Furosemide 20 mg 02/13/21 22:00 02/13/21 23:23 Furosemide 10 Mg /Ml Sdv 2ml IVP 02/15/21 09:00 Not Given Q24H ANDRZEJ Sodium Chloride 1,000 mls @ 30 ml s/hr 02/14/21 07:45 02/14/21 07:45 Sodium Chloride 0.9% IV 30 mls/hr .Q24H ANDRZEJ Administration Levothyroxine Sodi um 75 mcg 02/14/21 07:00 02/14/21 06:17 Levothyroxine 75 Mcg Tablet PO 75 mcg DAILY@0700 ANDRZEJ Administration PFSH Anesthesia PFSH: Medical History (Updated 02/14/21 @ 05:29 by Pavan Walton MD) Anemia Arteriosclerotic coronary artery disease Cardiomegaly Cholelithiasis Colon cancer 2006 Congestive heart failure COPD (chronic obstructive pulmonary disease) 2L NC continuous use Coronary artery disease Dyslipidemia Dyspnea Family history of NC (myocardial infarction) Sleep apnea Ventral hernia Surgical History (Updated 02/14/21 @ 05:29 by Pavan Walton MD) History of hemicolectomy Right 2006 History of PTCA Hx of bilateral cataract extraction Hx of colonoscopy 06/2019 -- no abnormalities (ileocolic anastomosis) Hx of esophagogastroduodenoscopy 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 Family History (Updated 02/13/21 @ 21:37 by Mario Alberto Nickerson MD) Brother Cancer Sister Cancer Other CAD (coronary artery disease) Social History (Updated 02/13/21 @ 21:44 by Mario Alberto Nickreson MD) Smoking and tobacco status: smoker, details unknown cigarettes [ Other cigarette details: Stop smoking 25 years ago, she used to smoke 1 pack a day for 1 to 2 years ] Alcohol intake: former Substance/Drug Use: never Previous occupational history: Retired [employer] Anesthesia CBC & Chem 7: 02/13/21 17:27 02/13/21 18:47 Other Labs: Laboratory Results - last 48 hr 02/13/21 02/13/21 02/13/21 17:27 17:27 17:27 WBC 7.3 RBC 1.58 L Hgb 4.3 L* Hct 15.8 L* MCV 100.0 H MCH 27.2 L MCHC 27.2 L RDW 18.5 H Plt Count 310 MPV 10.6 H Neut % (Auto) 61.5 Lymph % (Auto) 24.6 Atlantic % (Auto) 10.7 Eos % (Auto) 2.6 Baso % (Auto) 0.3 Neut # (Auto) 4.48 Lymph # (Auto) 1.8 Atlantic # (Auto) 0.8 Eos # (Auto) 0.2 Baso # (Auto) 0.0 Nucleated RBC % (auto) 0.5 Nucleated RBCs # 0.0 D-Dimer 0.29 Sodium Cancelled Potassium Cancelled Chloride Cancelled Carbon Dioxide Cancelled Anion Gap Cancelled BUN Cancelled Creatinine Cancelled GFR Calculation Cancelled Glucose Cancelled Calculated Osmolality Cancelled Lactate Calcium Cancelled Iron TIBC % Saturation Unsat Iron Binding Ferritin Total Bilirubin Cancelled AST Cancelled ALT Cancelled Alkaline Phosphatase Cancelled Troponin T Baseline Troponin T 120 Minute Delta Troponin T NT-Pro-B Natriuret Pep Cancelled Total Protein Cancelled Albumin Cancelled Globulin Cancelled Vitamin B12 Urine Color Urine Appearance Urine pH Ur Specific Arma Urine Protein Urine Glucose (UA) Urine Ketones Urine Blood Urine Nitrate Urine Bilirubin Urine Urobilinogen Ur Leukocyte Esterase Urine RBC Urine WBC Ur Squamous Epith Cells Amorphous Sediment Urine Bacteria SARS-CoV-2 Ag (Rapid) Blood Type Rho(D) Type Antibody Screen Crossmatch 02/13/21 02/13/21 02/13/21 17:27 17:27 17:27 WBC RBC Hgb Hct MCV MCH MCHC RDW Plt Count MPV Neut % (Auto) Lymph % (Auto) Atlantic % (Auto) Eos % (Auto) Baso % (Auto) Neut # (Auto) Lymph # (Auto) Atlantic # (Auto) Eos # (Auto) Baso # (Auto) Nucleated RBC % (auto) Nucleated RBCs # D-Dimer Sodium Potassium Chloride Carbon Dioxide Anion Gap BUN Creatinine GFR Calculation Glucose Calculated Osmolality Lactate 2.2 Calcium Iron TIBC % Saturation Unsat Iron Binding Ferritin Total Bilirubin AST ALT Alkaline Phosphatase Troponin T Baseline 21 H Troponin T 120 Minute Delta Troponin T NT-Pro-B Natriuret Pep Total Protein Albumin Globulin Vitamin B12 Urine Color Yellow Urine Appearance Clear Urine pH 5 Ur Specific Arma 1.020 Urine Protein Neg Urine Glucose (UA) Norm Urine Ketones Negative Urine Blood Neg Urine Nitrate Positive H Urine Bilirubin Neg Urine Urobilinogen 1 H Ur Leukocyte Esterase Trace H Urine RBC 0-4 H Urine WBC 25-40 H Ur Squamous Epith Cells 0-4 H Amorphous Sediment Not Reportable Urine Bacteria 4+ H SARS-CoV-2 Ag (Rapid) Blood Type Rho(D) Type Antibody Screen Crossmatch 02/13/21 02/13/21 02/13/21 17:27 18:47 18:47 WBC RBC Hgb Hct MCV MCH MCHC RDW Plt Count MPV Neut % (Auto) Lymph % (Auto) Atlantic % (Auto) Eos % (Auto) Baso % (Auto) Neut # (Auto) Lymph # (Auto) Atlantic # (Auto) Eos # (Auto) Baso # (Auto) Nucleated RBC % (auto) Nucleated RBCs # D-Dimer Sodium 142 Potassium 5.2 H Chloride 110 H Carbon Dioxide 24 Anion Gap 13.2 BUN 31 H Creatinine 0.8 GFR Calculation Not Reportable Glucose 118 H Calculated Osmolality 302 H Lactate Calcium 8.3 L Iron 20 L TIBC 400 % Saturation 5.0 L Unsat Iron Binding 380 H Ferritin 14 L Total Bilirubin 0.4 AST 19 ALT 11 Alkaline Phosphatase 88 Troponin T Baseline Troponin T 120 Minute Delta Troponin T NT-Pro-B Natriuret Pep 610 H Total Protein 5.8 L Albumin 3.1 L Globulin 2.7 Vitamin B12 381 Urine Color Urine Appearance Urine pH Ur Specific Arma Urine Protein Urine Glucose (UA) Urine Ketones Urine Blood Urine Nitrate Urine Bilirubin Urine Urobilinogen Ur Leukocyte Esterase Urine RBC Urine WBC Ur Squamous Epith Cells Amorphous Sediment Urine Bacteria SARS-CoV-2 Ag (Rapid) Negative Blood Type Rho(D) Type Antibody Screen Crossmatch 02/13/21 02/13/21 19:30 19:30 WBC RBC Hgb Hct MCV MCH MCHC RDW Plt Count MPV Neut % (Auto) Lymph % (Auto) Atlantic % (Auto) Eos % (Auto) Baso % (Auto) Neut # (Auto) Lymph # (Auto) Atlantic # (Auto) Eos # (Auto) Baso # (Auto) Nucleated RBC % (auto) Nucleated RBCs # D-Dimer Sodium Potassium Chloride Carbon Dioxide Anion Gap BUN Creatinine GFR Calculation Glucose Calculated Osmolality Lactate Calcium Iron TIBC % Saturation Unsat Iron Binding Ferritin Total Bilirubin AST ALT Alkaline Phosphatase Troponin T Baseline Troponin T 120 Minute 19.58 H Delta Troponin T -1.42 L NT-Pro-B Natriuret Pep Total Protein Albumin Globulin Vitamin B12 Urine Color Urine Appearance Urine pH Ur Specific Arma Urine Protein Urine Glucose (UA) Urine Ketones Urine Blood Urine Nitrate Urine Bilirubin Urine Urobilinogen Ur Leukocyte Esterase Urine RBC Urine WBC Ur Squamous Epith Cells Amorphous Sediment Urine Bacteria SARS-CoV-2 Ag (Rapid) Blood Type A Positive Rho(D) Type Positive / 4+ Antibody Screen Negative Crossmatch See Detail Cardiac Studies: No Data to Display
[2021-02-14 10:44] LABS: Basophils # 0.1 10^3/uL (0.0-0.1); Basophils % 0.8 %; Eosinophils # 0.3 10^3/uL (0.0-0.8); Lymphocytes # 1.5 10^3/uL (0.8-4.8); Lymphocytes % 23.9 %; Mean Corpuscular Hemoglobin 28.4 pg (28.0-34.0); Mean Platelet Volume 10.3 fL (7.4-10.4); Monocytes # 0.7 10^3/uL (0.2-0.9); Neutrophils # 3.86 10^3/uL (1.8-7.7); Nucleated Red Blood Cells % 0 %; Platelet Count 217 10^3/cmm (130-400); Red Blood Count 2.82 10^6/uL (4.1-5.3); Red Cell Distribution Width 16.1 % (12.1-15.1); White Blood Count 6.4 10^3/uL (4.0-10.0)
[2021-02-14 10:47] LABS: Hematocrit 26.2 % (37.0-47.0); Mean Corpuscular HGB Conc 30.5 g/dL (30.0-36.0); Mean Corpuscular Volume 92.9 fL (81-99)
[2021-02-14 11:02] LABS: Anion Gap 10.5 (5-19); Blood Urea Nitrogen 25 mg/dL (8-23); Calcium 7.7 mg/dL (8.5-10.5); Carbon Dioxide 24 mmol/L (22-29); Chloride 111 mmol/L (98-107); Glucose 109 mg/dL (65-115); Osmolality Calculated 297 mOsm/kg (285-295); Potassium 4.5 mmol/L (3.5-5.1); Sodium 141 mmol/L (136-145)
--- NOTE | 2021-02-14 11:08 | PC.CHAP ---
Pastoral Care Encounter/Spiritual Assessment Type of Contact [] Declined civil engineer visit [] Patient/Family/Request visit [] Outpatient visit [] Follow-up visit [] Physician referral [] Code/Alert [x] Routine visit [] Staff referral [] Actively dying [] Patient sleeping [] Family support [] [] Out of room [] Palliative care [] [x] Receiving care in room [] Pre-surgical visit [] Trauma [x] Long length of stay [] ICU visit [] Other: Relational/Emotional Strength [] Patient feels connected with others/family/visitors/staff [x] Distress [x] Loneliness/isolation [] Abandonment Spirituality of Patient [x] Person of Jessica [] Attends Roman Catholic of their Jessica [x] Believes in Prayer [] Reads Bible or Latter-Day materials [] There are Spiritual issues to be addressed On Car Supervisor Interventions [x] Prayer [x] Active listening [x] Non-anxious presence [x] Spiritual/emotional support [] Crisis/trauma care [x] Spiritual counseling [] Bereavement support [] Provided bereavement packet [] Provided Bible/devotional materials [] Provided toy/stuffed animal, coloring book to patient or family member [] Provided Communion [] Anointing/[place] [] Salvation [x] Completed spiritual assessment [] Other: Impact on Illness or Injury [] Angry [x] Fearful [] Anxious [] Often cries [] Exhaustion [] Unable to work [] Unable to attend roman catholic [] Unable to walk/stand [] Unable to read [] Unable to drive [] Unable to eat/drink [] Unable to sleep [] Unable to be with family [] Patient intubated [] Other: 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 Time spent with patient 10 mins
--- NOTE | 2021-02-14 13:28 | ANE.PACU2 ---
Inpatient post-anesthesia follow up: Airway intact: Yes Vital signs: Temperature 97.7 F Pulse Rate [Monito r] 89 Pulse Rate 74 Respiratory Rate 16 Blood Pressure [Ri ght Arm] 142/81 Blood Pressure 143/79 Pulse Oximetry 99 Oxygen Delivery Me thod [ Nasal Cannula Current Rate & Del alyssa] Oxygen Delivery Me thod Nasal Cannula Oxygen Flow Rate [ Current Rate 2 & Delivery] Oxygen Flow Rate 2 Fraction of Inspir ed Oxygen Hydration adequate: Yes Nausea and vomiting: No Pain level: 1 Mental status: Baseline
--- NOTE | 2021-02-14 13:55 | PM.PN ---
Subjective Subjective: Interval history: Patient was seen post scope. was sitting up in no distress. wanting to go home. Medications: Reviewed: Yes Vitals/I&O/Wt Last Vital Signs Temp 97.7 F 02/14/21 09:39 Pulse 74 02/14/21 09:39 Resp 16 02/14/21 09:39 BP 143/79 02/14/21 09:39 Pulse Ox 99 02/14/21 09:39 02/13/21 02/14/21 02/14/21 22:59 06:59 14:59 Intake Total 50 / 50 760 / 810 1949 Output Total 750 / 750 Balance 50 / 50 10 / 60 1949 Weight last 48 hrs Weight 79.832 kg Physical Exam Narrative: EXAM NARRATIVE: General : alert, awake no distress HEENT : EOMI S1, S2 irregular, Systolic murmur Chest : CTABL Abdomen soft nontender bowel sounds hyperactive Lower extremity no edema gangrene or ulcer Data : 02/14/21 10:32 02/14/21 10:32 A&P Assessment and plan (1) Acute upper gastrointestinal bleeding: Status: Acute (2) Black tarry stools: Status: Acute (3) Severe anemia: Status: Acute (4) Atrial fibrillation, persistent: Status: Acute (5) COPD (chronic obstructive pulmonary disease): Status: Chronic Additional A&P Information 1. GI bleed, Acute blood Loss Anemia on Eliquis Stool guaiac test positive Hb improved to > 8 Continue to hold eliquis Transfuse as needed for Hb < 8.0 Follow up on EGD this am Advance diet as per surgery PPI 2.Chronic Atrial fibrillation without RVR Improving Follow up with cardiology outpatient 3. COPD without acute exacerbation: Currently saturating well on 2 L nasal cannula Wean as tolerated 4. Established coronary disease without any active chest pain, history of CABG and stent placement 5. Grade 1 diastolic function preserved ejection fraction Lasix PRN Avoid maintenance fluid for now She also has history of mitral valve regurgitation Daily weight Low na DVT prophylaxis SCDs Full code, wants a trial of CPR & intubation but does not want to stay on ventilator for prolonged period of time Attestations Medical Necessity Statement*: Will need continue current hospitalization for management of severe anemia, Gi bleed Time Spent in Patient Care: Greater than 35 minutes (>than 50% of time spent in counselling and/or direct pt care on unit). Coding Level of Care Code Acute Truck Car And Bus Cleaner for Chg Fwd Diagnoses Acute upper gastrointestinal bleeding K92.2 Black tarry stools K92.1 Severe anemia D64.9 Atrial fibrillation, persistent I48.19 COPD (chronic obstructive pulmonary disease) J44.9
[2021-02-14] MEDS: iron complex forte Capsule 1 EACH PO (17:00)
[2021-02-14] MEDS: cefTRIAXone 1,000 MG in sodium chloride 0.9% (plus) 50 ML 100 MG IV (17:33)
[2021-02-14] MEDS: pantoprazole 40 mg SDV IVP (18:01)
[2021-02-14] MEDS: FUROsemide 10 mg/mL SDV 2mL 20 MG IVP (21:22)
[2021-02-15] VITALS: BP 149/64; PULSE 83; RESP 16; TEMP 36.8; O2SAT 100
[2021-02-15 04:00] VITALS: BP 143/75; PULSE 81; RESP 16; TEMP 36.9; O2SAT 100
[2021-02-15] MEDS: atorvastatin 40 mg Tablet PO (06:28)
[2021-02-15] MEDS: levothyroxine 75 mcg Tablet PO (06:28)
[2021-02-15 07:37] VITALS: BP 133/77; PULSE 74; RESP 17; TEMP 36.6; O2SAT 99
[2021-02-15] MEDS: folic acid 1 mg Tablet PO (08:55)
[2021-02-15] MEDS: metoprolol succinate ER (24 HR) 25 mg Tablet PO (08:55)
[2021-02-15] MEDS: iron complex forte Capsule 1 EACH PO (08:55)
[2021-02-15] MEDS: cyanocobalamin 1,000 mcg Tablet 1000 MCG PO (08:55)
[2021-02-15 09:04] LABS: Basophils # 0.1 10^3/uL (0.0-0.1); Basophils % 0.8 %; Eosinophils # 0.6 10^3/uL (0.0-0.8); Eosinophils % 8.4 %; Hematocrit 26.7 % (37.0-47.0); Hemoglobin 8.3 g/dL (11.5-15.3); Lymphocytes # 1.8 10^3/uL (0.8-4.8); Lymphocytes % 28.1 %; Mean Corpuscular HGB Conc 31.1 g/dL (30.0-36.0); Mean Corpuscular Hemoglobin 28.4 pg (28.0-34.0); Mean Corpuscular Volume 91.4 fL (81-99); Mean Platelet Volume 10.1 fL (7.4-10.4); Monocytes # 0.8 10^3/uL (0.2-0.9); Monocytes % 11.5 %; Neutrophils # 3.33 10^3/uL (1.8-7.7); Neutrophils % 50.9 %; Nucleated Red Blood Cells % 0 %; Platelet Count 217 10^3/cmm (130-400); Red Blood Count 2.92 10^6/uL (4.1-5.3); Red Cell Distribution Width 15.9 % (12.1-15.1); White Blood Count 6.5 10^3/uL (4.0-10.0)
[2021-02-15] MEDS: pantoprazole 40 mg SDV IVP (09:21)
--- NOTE | 2021-02-15 09:48 | P.PN_ITS ---
Subjective Subjective: Interval history: The patient says she feels well and is going home whether they let me or not. She is hungry and would like to eat some food. Vitals/I&O/Wt Last Vital Signs Temp 97.9 F 02/15/21 07:37 Pulse 74 02/15/21 07:37 Resp 17 02/15/21 07:37 BP 133/77 02/15/21 07:37 Pulse Ox 99 02/15/21 07:37 02/14/21 02/15/21 02/15/21 22:59 06:59 14:59 Intake Total 550 / 2500 120 / 120 Output Total 1500 / 1500 250 / 250 Balance 550 / 1000 -1500 / 1000 -130 / -130 Weight last 48 hrs Weight 176 lb Physical Exam Narrative: EXAM NARRATIVE: Abdomen remains nontender. Data : 02/15/21 08:55 02/14/21 10:32 Micro: Microbiology 02/13/21 17:27 Urine Culture - Preliminary Urine,Clean Catch Gram Negative Rods A&P Assessment and plan (1) Severe anemia: Better following transfusion. The patient's Eliquis remains on hold. Status: Acute (2) Black tarry stools: This had been going on for about a month prior to this admission. I did not find much on the patient's EGD yesterday other than perhaps a small hiatal hernia. There was no evidence of any bleeding lesions. I cannot promise that she does not have a small intestinal AVM or something else, but it sounds like the plan is to hold her Eliquis for several weeks at least, anyway. She never did like to be on it and does not have any interest in going back on this. I am going to allow the patient a cardiac diet. I may not continue to follow the patient daily. Please call if I can be of further help. Status: Acute Attestations Medical Necessity Statement*: See admitting service's notation. Coding Level of Care Code Acute Dental Billing Specialist for Yolanda Forman Diagnoses Severe anemia D64.9 Black tarry stools K92.1
[2021-02-15 10:15] VITALS: BP 133/77; PULSE 74; RESP 17; TEMP 36.6; O2SAT 99
--- NOTE | 2021-02-15 11:36 | PM.DCS ---
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 fib chronic anticoagulation with Eliquis last dose was this morning, presented today with chief complaint of fatigue, lethargy and shortness of breath. Patient is stating that for last 3 weeks she is extremely constipated, and whenever she moves her bowel her feces will be dark-colored which she describing as charcoal colored. She has not noticed any fresh bleed per rectum. No hemoptysis hematuria or any other bleeding. She also saw Dr. Ventura for dark-colored stool and she specifically asked about blood in her stool however no further recommendations were made to change her medications. In last 3 weeks she has become more weak and lethargic and gets shortness of breath on mild activity, she has asked her son to live with her to help her with daily activities. She is denying chest pain, strokelike symptoms, dysuria, abdominal pain. In the ER her blood pressure was on higher side 148/80mmhg, pulse 92, A. fib without RVR respiratory rate 20 afebrile she was saturating well on 2 L nasal cannula, in the ER stool guaiac test was positive, 3 units PRBC requested, Dr. Walton notified and consulted, her last dose of Eliquis was this morning. Severe anemia with macrocytosis, mild hyperkalemia, negative delta troponin, A. fib without RVR EKG without ischemic or infarctive changes, no hematuria, Covid antigen negative, Covid test was requested because of her symptoms of shortness of breath and weakness. Patients was previously on eliquis which was held. She was taken for a EGD which showed small hiatal hernia. No evidence of obvious GI bleed. As her Hb remained stable and no further drop in hb she was discharged. I had advised her to hold eliquis and any additional antiplatlets/anticoagulation for min 3 weeks until seen by cardiology and general surgery. Patient was demanding to be discharged. She was advised to return to ER if any recurrance of dark stools, chest pain, dyspnea or increasing weakness. Repeat outpatient labs were ordered. Physical Exam Narrative: EXAM NARRATIVE: General : alert, awake no distress HEENT : EOMI S1, S2 irregular, Systolic murmur Chest : CTABL Abdomen soft nontender bowel sounds hyperactive Lower extremity no edema gangrene or ulcer Discharge Data Data Completed and Pending: Completed Studies During Hospitalization Category Date Time Status XR chest 1V filemon ble [id number] Urgent Exams 02/13/21 16:33 Completed Vitals: Last Vital Signs Temp 97.9 F 02/15/21 10:15 Pulse 74 02/15/21 10:15 Resp 17 02/15/21 10:15 BP 133/77 02/15/21 10:15 Pulse Ox 99 02/15/21 10:15 Discharge Plan Discharge Patient Disposition: Home Condition: Stable Prescriptions: New Protonix 40 mg tablet,delayed release (DR/EC) 40 mg PO BID 30 Days Qty: 60 RF: 0 Cipro 250 mg tablet 250 mg PO BID Qty: 6 RF: 0 Continued tamsulosin 0.4 mg capsule 0.4 mg PO DAILY@0800 RF: 0 Multivitamin Gummies 200 mcg Tablet,Chewable 1 tab PO DAILY@0700 RF: 0 atorvastatin 40 mg tablet 40 mg PO DAILY@0700 RF: 0 acetaminophen [Tylenol Extra Strength] 500 mg Tablet 1,000 mg PO Q4H PRN (Reason: Pain) RF: 0 levothyroxine 75 mcg tablet 75 mcg PO DAILY@0700 RF: 0 metoprolol succinate 25 mg tablet extended release 24 hr 25 mg PO DAILY@0800 RF: 0 Discontinued aspirin [Aspir-81] 81 mg Tablet,Delayed Release (Dr/Ec) 81 mg PO DAILY@0800 RF: 0 apixaban 5 mg tablet 5 mg PO BID@0700,1900 RF: 0 Discharge Orders: Discharge Order (Routine); Ordered 02/15/21 Ordered By: Tamara Booth Referrals: [place] [facility](Medicaid) [Other] (Call this number if you are interested in getting In Home Services setup. They will ask questions, based of the answers you are given points. You have to have so many pointsw to qualify you for services. ) Luis Fernando Solomon, [Primary Care Provider] - 02/21/21 10:00 am (You have an appointment with Earnestine Kelley on February 21 at 10 AM.) Discharge Diet: GI Soft Discharge Activity: Increase activity as tolerated Patient Instructions: Anemia, Atrial Fibrillation, Ciprofloxacin (By mouth), Pantoprazole (By mouth), Gastrointestinal Bleeding (DC), Iron Rich Diet (DC), Chronic Obstructive Pulmonary Disease (DC), COPD Stoplight, GI Discharge Instructions Activity Restrictions/Additional Instructions: Return to hospital if any recurrance of dark stools, chest pain, lightheadedness or difficulty breathing Discharge Attestations Time Spent in Discharge Care*: greater than 30 min Quality Metrics Clinical Quality Measures During this hospital stay, did patient experience: None Coding Level of Care Code Acute Chg FW DC note Diagnoses Severe anemia D64.9 Black tarry stools K92.1
--- NOTE | 2021-02-15 17:33 | PC.RESP ---
Smoking Cessation and Pulmonary Rehab information sent to patient.
== END 2021-02-15 10:50 | disposition home or self-care (01) | DRG 378 ==
LOC: ER 19:45 → MEDSURG 20:25
PROVIDERS: Surgery; Admitting Provider Internal Medicine; Emergency Provider Family Medicine; PCP Family Medicine; Visit Provider Hospitalist
PROC: 0DJ08ZZ Inspection of Upper Intestinal Tract, Via Natural or Artificial Opening Endoscopic (ICD-10-PCS; CPT 43235; principal; 2021-02-14 08:30)
DX: K92.1 Melena (principal); N39.0 Urinary tract infection, site not specified; I48.19 Other persistent atrial fibrillation; F10.21 Alcohol dependence, in remission; Z85.038 Personal history of other malignant neoplasm of large intestine; I25.10 Atherosclerotic heart disease of native coronary artery without angina pectoris; Z95.1 Presence of aortocoronary bypass graft; Z95.5 Presence of coronary angioplasty implant and graft; K59.00 Constipation, unspecified; D50.0 Iron deficiency anemia secondary to blood loss (chronic); E87.5 Hyperkalemia; K80.20 Calculus of gallbladder without cholecystitis without obstruction; I50.9 Heart failure, unspecified; J44.9 Chronic obstructive pulmonary disease, unspecified; E78.5 Hyperlipidemia, unspecified; G47.30 Sleep apnea, unspecified; K43.9 Ventral hernia without obstruction or gangrene; Z90.49 Acquired absence of other specified parts of digestive tract; Z87.891 Personal history of nicotine dependence; K44.9 Diaphragmatic hernia without obstruction or gangrene
CPT/HCPCS: 12345; 36415; 36430; 43235; 71045; 80048; 80053; 81001; 82607; 82728; 83540; 83550; 83605; 83880; 84484; 85025; 85378; 86850; 86900; 86920; 87077; 87086; 87186; 87426; 93005; 96365; 96375; 99285; C9113; J0696; J1940; J2704; J7030; P9016

== ENCOUNTER 2021-02-18 10:08 | Outpatient (CLI) | payer MEDICARE, MEDICAID, SELFPAY ==
[2021-02-18 11:05] LABS: Basophils % 0.5 %; Eosinophils # 0.4 10^3/uL (0.0-0.8); Eosinophils % 5.3 %; Hematocrit 26.8 % (37.0-47.0); Lymphocytes # 1.5 10^3/uL (0.8-4.8); Lymphocytes % 23.3 %; Mean Corpuscular HGB Conc 29.9 g/dL (30.0-36.0); Mean Corpuscular Hemoglobin 27.8 pg (28.0-34.0); Mean Corpuscular Volume 93.1 fL (81-99); Mean Platelet Volume 10.3 fL (7.4-10.4); Monocytes # 0.7 10^3/uL (0.2-0.9); Monocytes % 9.8 %; Neutrophils # 4.02 10^3/uL (1.8-7.7); Neutrophils % 60.8 %; Nucleated Red Blood Cells % 0 %; Platelet Count 215 10^3/cmm (130-400); Red Blood Count 2.88 10^6/uL (4.1-5.3); Red Cell Distribution Width 15.1 % (12.1-15.1); White Blood Count 6.6 10^3/uL (4.0-10.0)
== END 2021-02-18 10:09 | disposition home or self-care (01) ==
LOC: LAB 10:16
PROVIDERS: PCP Family Medicine; Visit Provider Hospitalist
DX: K92.1 Melena (principal)
CPT/HCPCS: 36415; 85025

== ENCOUNTER 2021-05-31 09:50 | Emergency (ER) | payer MEDICARE, MEDICAID, SELFPAY ==
[2021-05-31 09:58] VITALS: BP 170/9; PULSE 90; RESP 16; TEMP 36.7; O2SAT 99; BMI 31.4
--- NOTE | 2021-05-31 10:07 | XR_ITS ---
WS: [id number] Pelvis, AP view, 05/31/2021 Clinical Data: fall Comparison: None. Findings: No fractures or dislocations are seen. The SI joints and pubic symphysis are intact. The soft tissues are not remarkable. The hip show no definite fractures. There is acetabular spurring bilaterally. The pubic rami show no fractures. XR/XR pelvis 1-2V* [id number] Impression: Negative for pelvic or hip fracture.
--- NOTE | 2021-05-31 10:07 | XR_ITS ---
WS: [id number] Lumbar spine, AP and lateral views, 05/31/2021 Clinical Data: fall Comparison: None. Findings: No compression fractures or subluxation is seen. Degenerative disc narrowing at L5-S1 is seen. There is diffuse osteoporosis. Osteoarthritis of all the lumbar vertebral bodies is moderate.. The transver se processes and SI joints are normal. There is vascular calcification throughout the abdomen but no aneurysm is seen. XR/XR lumbar spine 2-3V* [id number] Impression: 1. Negative for compression fracture. 2. Osteoporosis and osteoarthritis. 3. Degenerative disc narrowing at L5-S1.
--- NOTE | 2021-05-31 10:07 | XR_ITS ---
WS: [id number] Left wrist, 3 views, 05/31/2021 Clinical Data: trauma Comparison: Left wrist, 01/19/2009. Findings: There is a fracture of the distal left radius. There is a simple fracture of the ulnar styloid. The c arpal bones are intact. There is soft tissue swelling about the fracture site. There is diffuse osteoporosis of the left wrist. XR/XR wrist LT min 3V* [id number] Impression: Fracture of distal left radius and left ulnar styloid.
--- NOTE | 2021-05-31 10:09 | ED_ITS ---
HPI - Fall General: Chief Complaint: Fall Stated Complaint: FALL / L Wrist Pain / Back Pain Time Seen by Provider: 05/31/21 09:54 History of Present Illness: HPI Narrative: Patient's arrived via ambulance with stated complaint that she tripped over a lamp cord this morning landing on the left wrist in her back. She complains about pelvic pain low back pain and small her back and left wrist pain. She said she is good over the telephone make calls ambulance. Denies any other problems. complaint: fall Onset (ago): hour(s) Fall from: standing Fall witnessed: no Place fall occurred: home Loss of consciousness: None Symptoms prior to fall: none Context: tripped/slipped Associated symptoms-after fall: Denies abdominal pain, chest pain or headache(s) Review of Systems Const: Denies: fever(s), chills or body aches Eyes: Denies: change in vision or blurry vision ENMT: Denies: throat pain or nasal congestion Card: Denies: chest pain or dyspnea on exertion Resp: Denies: dyspnea, productive cough or non-productive cough GI: Denies: abdominal pain, nausea or vomiting Musc: Reports: back pain (Lumbar area), extremity pain and joint pain (Left wrist) Skin/Breast: Denies: rash Neuro: Denies: headache(s) Psych: Denies: anxiety or depression Marvin/Lymph: Denies: easy bruising PFSH ED PFSH: Medical History Anemia Arteriosclerotic coronary artery disease Cardiomegaly Cholelithiasis Colon cancer 2007 Congestive heart failure COPD (chronic obstructive pulmonary disease) 2L NC continuous use Coronary artery disease Dyslipidemia Dyspnea Family history of PA (myocardial infarction) Sleep apnea Ventral hernia Surgical History History of hemicolectomy Right 2006 History of PTCA Hx of bilateral cataract extraction Hx of colonoscopy 06/2019 -- no abnormalities (ileocolic anastomosis) Hx of esophagogastroduodenoscopy 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 Family History Brother Cancer Sister Cancer Other CAD (coronary artery disease) Social History (Reviewed 03/25/21 @ 14:08 by CALDERON Antony Smoking and tobacco status: smoker, details unknown cigarettes [ Other cigarette details: Stop smoking 25 years ago, she used to smoke 1 pack a day for 1 to 2 years ] Alcohol intake: former 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 Physical Exam Const: COMMON NORMALS: no acute distress, average body habitus and patient oriented x3 HENMT: COMMON NORMALS: normocephalic HEAD & SCALP: normal to inspection and normocephalic FACE & SINUS: normal facial exam Eye: COMMON NORMALS: conjunctivae normal GENERAL EYE: appearance normal, both eyes and all related structures CONJUNCTIVA: Yes conjunctivae normal Neck/C-Spine: COMMON NORMALS: no JVD Chest: COMMONS NORMALS: normal inspection of the chest Resp: COMMON NORMALS: normal respiratory effort and clear to auscultation bilaterally AUSCULTATION: clear to auscultation bilaterally Cardio: COMMON NORMALS: no JVD, regular rate and regular rhythm RATE: regular rate RHYTHM: regular rhythm GI: COMMON NORMALS: Normal to inspection, nondistended, normoactive bowel sounds present : COMMON NORMALS: Yes no CVA tenderness BLADDER/KIDNEY EXAM: Yes no CVA tenderness Back/Pelvis: COMMON NORMALS: no CVA tenderness THORACIC SPINE/UPPER BACK: Yes normal to inspection LUMBAR SPINE/LOWER BACK: Yes lumbar spinal tenderness Extremity: LEFT UPPER EXTREMITY: Yes wrist (Bruising swelling tenderness decreased range of motion) Left wrist: Yes neurovascular exam (Intact) RIGHT LOWER EXTREMITY: Yes hip joint (No tenderness) LEFT LOWER EXTREMITY: Yes hip joint (No tenderness) Neuro: COMMON NORMALS: patient oriented x3 Course Vital Signs: Vital signs: Vital Signs Temperature 98.0 F 05/31/21 09:58 Pulse Rate 106 H 05/31/21 13:01 Respiratory Rate 15 05/31/21 13:01 Blood Pressure 164/65 05/31/21 13:01 Pulse Oximetry 90 05/31/21 13:01 MDM - Fall MDM Narrative: Medical decision making narrative: Radiology studies revealed minimal displacement left radial fracture with the styloid ulnar side simple fracture. No other fractures dislocation noted. Patient tolerated stay here well medication was given to help with discomfort patient will follow-up Ortho as scheduled. Discharge Plan Discharge Patient Disposition: Home Clinical Impression: Fracture of wrist Qualifiers: Encounter type: initial encounter Fracture type: closed Laterality: left Qualified Code(s): S62.102A - Fracture of unspecified carpal bone, left wrist, initial encounter for closed fracture Fall Qualifiers: Encounter type: initial encounter Qualified Code(s): W19.XXXA - Unspecified f all, initial encounter Condition: Stable Prescriptions: New Celebrex 100 mg capsule 100 mg PO BID Qty: 20 RF: 0 No Action pantoprazole 40 mg tablet,delayed release (DR/EC) 40 mg PO BID RF: 0 loratadine [Allergy Relief (loratadine)] 10 mg tablet 10 mg PO DAILY RF: 0 ascorbic acid (vitamin C) 500 mg tablet 500 mg PO DAILY RF: 0 ferrous gluconate 324 mg (38 mg iron) tablet 324 mg PO DAILY RF: 0 metoprolol succinate 25 mg tablet extended release 24 hr 37.5 mg PO DAILY@0800 Qty: 135 RF: 3 tamsulosin 0.4 mg capsule 0.4 mg PO DAILY@0800 RF: 0 Multivitamin Gummies 200 mcg Tablet,Chewable 1 tab PO DAILY@0700 RF: 0 atorvastatin 40 mg tablet 40 mg PO DAILY@0700 RF: 0 levothyroxine 75 mcg tablet 75 mcg PO DAILY@0700 RF: 0 Discharge Orders: Discharge ED (Routine); Ordered 05/31/21 Ordered By: John Goldman Referrals: Malik Weathers MD [Primary Care Provider] - Discharge Diet: Usual diet Discharge Activity: Increase activity as tolerated Patient Instructions: Wrist Fracture in Adults (ED) Activity Restrictions/Additional Instructions: Follow-up with medical provider as directed. Take medications as prescribed. Return to the ER or your medical provider if condition worsens. Please read and understand discharge instructions. If any questions ask please. Hospital will contact you with an appointment for orthopedic clinic sometime for next week Coding Level of Care Code ED Golf Instructor for Yolanda Fwaries Exam Comprehensive
[2021-05-31] MEDS: TRAMadol 50 mg Tablet PO (10:23)
[2021-05-31] MEDS: ondansetron 4 MG Tablet 2 MG PO (10:23)
[2021-05-31 10:24] VITALS: BP 160/71; PULSE 77; RESP 17; O2SAT 93
--- NOTE | 2021-05-31 12:32 | DCPLANNER ---
fitness manager was asked to schedule a follow up appointment for patient with ortho for a wrist fracture. fitness manager called the ortho clinic, spoke with Radha, gave clinic patients information. fitness manager was told that patients information would be printed and reviewed. Clinic will call patient with appointment information. Clinic called case resolution specialist and told case resolution specialist that a follow up appointment had been scheduled for patient. An appointment was scheduled for Friday, June 04, 2021 at 10:[address] Juárez. fitness manager informed patient and her son of the scheduled appointment.
[2021-05-31 13:01] VITALS: BP 164/65; PULSE 106; RESP 15; O2SAT 90
--- NOTE | 2021-06-13 11:44 | DCPLANNER ---
Patient had a follow up appointment scheduled for 06.04.21 with ortho - appointment was cancelled.
== END 2021-05-31 12:59 | disposition home or self-care (01) ==
PROVIDERS: Emergency Provider Nurse Practitioner Family; PCP Family Medicine
DX: S52.502A Unspecified fracture of the lower end of left radius, initial encounter for closed fracture (principal); S52.612A Displaced fracture of left ulna styloid process, initial encounter for closed fracture; I25.10 Atherosclerotic heart disease of native coronary artery without angina pectoris; I50.9 Heart failure, unspecified; J44.9 Chronic obstructive pulmonary disease, unspecified; E78.5 Hyperlipidemia, unspecified; Z87.891 Personal history of nicotine dependence; Z95.1 Presence of aortocoronary bypass graft; W01.0XXA Fall on same level from slipping, tripping and stumbling without subsequent striking against object, initial encounter
CPT/HCPCS: 29125; 72100; 72170; 73110; 99283; Q0162

== ENCOUNTER 2021-06-02 00:10 | Inpatient (IN) | payer MEDICARE, MEDICAID, SELFPAY ==
[2021-06-02] VITALS (16 sets, daily range): BP systolic 120–170; BP diastolic 74–118; PULSE 78–101; RESP 14–28; TEMP 36.6–36.9; O2SAT 85–97; BMI 32.9
--- NOTE | 2021-06-02 00:19 | CTR_ITS ---
PROCEDURE INFORMATION: Exam: CTA Chest With Contrast Exam date and time: 06/02/2021 12:19 AM Age: 81 years old Clinical indication: Injury or trauma; Fall; Generalized; Blunt trauma (contusions or hematomas); Prior surgery; Surgery date: 6+ months; Surgery type: Hyst; Patient HX: HX colon CA TECHNIQUE: Imaging protocol: Computed tomographic angiography of the chest with contrast. 3D rendering (Not supervised by radiologist): MIP and/or 3D reconstructed images were created by the technologist. Radiation optimization: All CT scans at this facility use at least one of these dose optimization techniques: automated exposure control; mA and/or kV adjustment per patient size (includes targeted exams where dose is matched to clinical indication); or iterative reconstruction. Contrast material: OMNI 350; Contrast volume: 95 ml; Contrast route: INTRAVENOUS (IV); COMPARISON: CR (CHEST, ) 06/02/2021 12:57 AM RADIATION DOSE METRICS: Total DLP (mGy-cm): 1765.86 FINDINGS: Pulmonary arteries: No pulmonary embolism. Aorta: Unremarkable. No aortic aneurysm. No aortic dissection. Lungs: See Bones/joints finding. Pleural spaces: Unremarkable. No pneumothorax. No pleural effusion. Heart: There is mild cardiomegaly. Lymph nodes: Calcified lymph nodes are present, secondary to prior granulomatous disease. There are few borderline enlarged mediastinal lymph nodes. Bones/joints: There has been a median sternotomy. Moderate to severe pulmonary fibrosis. Soft tissues: Unremarkable. IMPRESSION: 1. No pulmonary embolism. 2. Mild cardiomegaly. 3. There has been a median sternotomy. Moderate to severe pulmonary fibrosis. PROCEDURE INFORMATION: Exam: CT Abdomen And Pelvis With Contrast Exam date and time: 06/02/2021 12:19 AM Age: 81 years old Clinical indication: Injury or trauma; Fall; Generalized; Blunt trauma (contusions or hematomas); Prior surgery; Surgery date: 6+ months; Surgery type: Hyst; Patient HX: HX colon CA TECHNIQUE: Imaging protocol: Computed tomography of the abdomen and pelvis with contrast. Radiation optimization: All CT scans at this facility use at least one of these dose optimization techniques: automated exposure control; mA and/or kV adjustment per patient size (includes targeted exams where dose is matched to clinical indication); or iterative reconstruction. Contrast material: OMNI 350; Contrast volume: 95 ml; Contrast route: INTRAVENOUS (IV); COMPARISON: CR (CHEST, ) 06/02/2021 12:57 AM RADIATION DOSE METRICS: Total DLP (mGy-cm): 1765.86 FINDINGS: Lungs: The lung bases are clear. No effusion Liver: Normal. No mass. Gallbladder and bile ducts: There is cholelithiasis without wall thickening or pericholecystic fluid. Pancreas: Normal. No ductal dilation. Spleen: 1.1 cm splenic laceration with a small amount of perisplenic fluid. Adrenal glands: Normal. No mass. Kidneys and ureters: There is a subcentimeter low-attenuation lesions/lesions, of the left kidney which are too small to accurately characterize by CT. There is a subcentimeter low-attenuation lesions/lesions, of the right kidney which are too small to accurately characterize by CT. Stomach and bowel: Unremarkable. No obstruction. No mucosal thickening. Appendix: No evidence of appendicitis. Intraperitoneal space: Unremarkable. No free air. No significant fluid collection. Vasculature: Unremarkable. No abdominal aortic aneurysm. Lymph nodes: Unremarkable. No enlarged lymph nodes. Urinary bladder: Unremarkable as visualized. Reproductive: There has been a hysterectomy. Bones/joints: There is a superior endplate compression fracture at T12 with approximately 4 mm loss of vertical height. Soft tissues: Fat containing umbilical hernia. CT/CT angio chest w abd pel w con IMPRESSION: 1. Grade 2 splenic laceration. 2. There is a superior endplate compression fracture at T12 with approximately 4 mm loss of vertical height. 3. Cholelithiasis without cholecystitis. 4. Fat containing umbilical hernia. COMMENTS: Consistent with the [employer]'s Incidental Findings Committee white paper (J Am Chepe Radiol 2018): Any incidental renal lesion less than 1 cm or classified as too small to characterize, or any incidental cystic renal lesion characterized as simple-appearing, is likely benign. No follow-up imaging is recommended for these lesions per consensus recommendations based on imaging criteria. Radiation Dose CTDIVOL = (mGy): DLP = 1765.86~1765.86 (mGy-cm)
--- NOTE | 2021-06-02 00:19 | XRR_ITS ---
PROCEDURE INFORMATION: Exam: XR Chest Exam date and time: 06/02/2021 12:19 AM Age: 81 years old Clinical indication: Dyspnea; Additional info: SOB TECHNIQUE: Imaging protocol: XR of the chest. Views: 1 view. COMPARISON: CR XR chest 1V portable [id number] 02/13/2021 4:49 PM FINDINGS: Lungs: Stable pulmonary fibrosis. Pleural spaces: Unremarkable. No pleural effusion. No pneumothorax. Heart/Mediastinum: There is mild cardiomegaly. Bones/joints: There has been a median sternotomy. XR/XR chest 1V portable [id number] IMPRESSION: 1. Stable pulmonary fibrosis. 2. Mild cardiomegaly.
--- NOTE | 2021-06-02 00:19 | CTR_ITS ---
PROCEDURE INFORMATION: Exam: CT Cervical Spine Without Contrast Exam date and time: 06/02/2021 12:19 AM Age: 81 years old Clinical indication: Injury or trauma; Fall; Blunt trauma TECHNIQUE: Imaging protocol: Computed tomography images of the cervical spine without contrast. Radiation optimization: All CT scans at this facility use at least one of these dose optimization techniques: automated exposure control; mA and/or kV adjustment per patient size (includes targeted exams where dose is matched to clinical indication); or iterative reconstruction. COMPARISON: CT head wo con* [id number] 07/11/2020 11:56 AM RADIATION DOSE METRICS: Total DLP (mGy-cm): 531.22 FINDINGS: Vertebrae: There is a normal cervical lordosis. There is normal alignment of the cervical spine. No fractures or dislocations identified. Vertebral body heights are well maintained throughout. Discs/Spinal canal/Neural foramina: Intervertebral disc heights are well maintained throughout. The bony spinal canal is patent. Soft tissues: No prevertebral soft tissue swelling identified. Lungs: Interstitial thickening at bilateral lung apices, possibly representing pulmonary edema. CT/CT cervical spin wo con* [id number] IMPRESSION: 1. No fractures or dislocations identified involving the cervical spine. Radiation Dose CTDIVOL = (mGy): DLP = 531.22 (mGy-cm)
--- NOTE | 2021-06-02 00:19 | CTR_ITS ---
PROCEDURE INFORMATION: Exam: CT Head Without Contrast Exam date and time: 06/02/2021 12:19 AM Age: 81 years old Clinical indication: Injury or trauma; Fall; Blunt trauma (contusions or hematomas); Consciousness not specified TECHNIQUE: Imaging protocol: Computed tomography of the head without contrast. Radiation optimization: All CT scans at this facility use at least one of these dose optimization techniques: automated exposure control; mA and/or kV adjustment per patient size (includes targeted exams where dose is matched to clinical indication); or iterative reconstruction. COMPARISON: CT head wo con* [id number] 07/11/2020 11:56 AM RADIATION DOSE METRICS: Total DLP (mGy-cm): 822.92 FINDINGS: Brain: There is mild hypodensity of the periventricular white matter. This is nonspecific, but a likely cause is small vessel ischemic disease. No abnormal intra-axial or extra-axial fluid collections are identified. There is no midline shift. No intracranial hemorrhage identified. Ventricles: The ventricles and sulci are mildly and diffusely prominent, compatible with global brain volume loss. Bones/joints: Unremarkable as visualized. Sinuses: Visualized sinuses are unremarkable. No fluid levels. Mastoid air cells: Visualized mastoid air cells are well aerated. Soft tissues: Unremarkable. CT/CT head wo con* [id number] IMPRESSION: 1. No acute intracranial abnormality identified. Radiation Dose CTDIVOL = (mGy): DLP = 822.92 (mGy-cm)
[2021-06-02 00:40] LABS: Basophils # 0.1 10^3/uL (0.0-0.1); Basophils % 0.6 %; Eosinophils # 0.5 10^3/uL (0.0-0.8); Eosinophils % 5.6 %; Hematocrit 33.9 % (37.0-47.0); Hemoglobin 10.4 g/dL (11.5-15.3); Lymphocytes # 2.2 10^3/uL (0.8-4.8); Lymphocytes % 25.4 %; Mean Corpuscular HGB Conc 30.7 g/dL (30.0-36.0); Mean Corpuscular Hemoglobin 27.7 pg (28.0-34.0); Mean Corpuscular Volume 90.4 fL (81-99); Mean Platelet Volume 10.7 fL (7.4-10.4); Monocytes # 0.6 10^3/uL (0.2-0.9); Neutrophils # 5.33 10^3/uL (1.8-7.7); Neutrophils % 60.9 %; Nucleated Red Blood Cells % 0 %; Platelet Count 169 10^3/cmm (130-400); Red Blood Count 3.75 10^6/uL (4.1-5.3); Red Cell Distribution Width 17.8 % (12.1-15.1); White Blood Count 8.7 10^3/uL (4.0-10.0)
--- NOTE | 2021-06-02 01:11 | W.ED.AMS ---
HPI - Altered Mental Status General: Chief Complaint: Altered Mental Status Stated Complaint: AMS Time Seen by Provider: 06/02/21 00:13 Source: patient and EMS Mode of arrival: EMS Limitations: altered mental status History of Present Illness: HPI narrative: 81-year-old female with a fall earlier's week and fractured left wrist. She also has a history of congestive heart failure. states that tonight she started getting confused and having severe shortness of breath. She is on 2 L of oxygen at baseline is requiring 5 to 6 L here has an increased work of breathing. She does have some confusion here. She is able to tell me her name and remembers falling was able to tell me what happened but does not remember the date and does get confused at times. Patient has had no fevers. states she was complaining of shortness of breath for 3 hours before arrival along with that confusion. She is having some back pain as well but states that that is been going on since the fall. Associated symptoms: Deny depression Review of Systems Const: Denies: fever(s), chills, body aches or change in appetite Eyes: Denies: blurry vision or eye discomfort ENMT: Denies: throat pain or dental pain Card: Denies: chest pain Resp: Reports: dyspnea GI: Denies: abdominal pain, nausea, vomiting or diarrhea : Denies: dysuria Musc: Reports: back pain Skin/Breast: Denies: rash Neuro: Reports: confusion Psych: Denies: depression Marvin/Lymph: Denies: easy bruising All/Imm: Denies: urticaria PFS ED PFSH: Medical History Anemia Arteriosclerotic coronary artery disease Cardiomegaly Cholelithiasis Colon cancer 2007 Congestive heart failure COPD (chronic obstructive pulmonary disease) 2L NC continuous use Coronary artery disease Dyslipidemia Dyspnea Family history of [place] (myocardial infarction) Sleep apnea Ventral hernia Surgical History History of hemicolectomy Right 2006 History of PTCA Hx of bilateral cataract extraction Hx of colonoscopy 06/2019 -- no abnormalities (ileocolic anastomosis) Hx of esophagogastroduodenoscopy 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 Family History Brother Cancer Sister Cancer Other CAD (coronary artery disease) Social History Smoking and tobacco status: smoker, details unknown cigarettes [ Other cigarette details: Stop smoking 25 years ago, she used to smoke 1 pack a day for 1 to 2 years ] Alcohol intake: former Previous occupational history: Retired [employer] Physical Exam Const: COMMON NORMALS: no acute distress and healthy appearing; negative for patient oriented x3 HENMT: COMMON NORMALS: normocephalic and atraumatic HEAD & SCALP: normocephalic and atraumatic Eye: COMMON NORMALS: Equal, round and reactive pupils present and EOMs intact bilaterally PUPIL: Yes Equal, round and reactive pupils present Neck/C-Spine: COMMON NORMALS: full ROM and supple Chest: COMMONS NORMALS: normal inspection of the chest and normal palpation of entire chest wall Resp: COMMON NORMALS: No retractions and No use of accessory muscles EFFORT & INSPECTION: Yes tachypneic and Yes respiratory distress AUSCULTATION: rales Cardio: COMMON NORMALS: regular rate, regular rhythm and No murmurs present (Cardio) RATE: regular rate RHYTHM: regular rhythm GI: COMMON NORMALS: Normal to inspection, nondistended, normoactive bowel sounds present, Soft to palpation, non-tender and no masses PALPATION: Yes Soft to palpation Extremity: COMMON NORMALS: full ROM NARRATIVE EXTREMITY EXAM: Splint in place to left wrist Neuro: COMMON NORMALS: moves all extremities and no focal motor deficits; negative for patient oriented x3 Psych: COMMON NORMALS: mental status grossly normal, Normal thought process present and cooperative THOUGHT PROCESS: Normal thought process present Skin: COMMON NORMALS: no rashes or lesions noted and no wounds GENERAL SKIN EXAM: no rashes or lesions noted Course Vital Signs: Vital signs: Vital Signs Temperature 98.0 F 06/02/21 00:12 Pulse Rate 93 06/02/21 00:12 Respiratory Rate 28 H 06/02/21 00:12 Blood Pressure 129/74 06/02/21 00:12 Pulse Oximetry 90 06/02/21 00:12 MDM - Altered Mental Status MDM Narrative: Medical decision making narrative: Patient presents here with dyspnea with altered mental status. She has a history of congestive heart failure with pulmonary fibrosis both likely continuing her increased dyspnea. Patient typically on 2 L and is requiring 5 to 6 L here. She had a fall 2 days ago because of a wrist fracture. CT tonight shows a very mild compression fracture to the thoracic spine she also has a mild splenic laceration. Her hemoglobin here is stable. I spoke to surgeon on-call who is consulted for the splenic laceration. Patient mid to hospitalist for her increasing shortness of breath. Lab Data: Labs: Lab Results 06/02/21 06/02/21 06/02/21 Range/Units 00:05 00:05 00:05 WBC 8.7 (4.0-10.0) 10^3/ uL RBC 3.75 L (4.1-5.3) 10^6/u L Hgb 10.4 L (11.5-15.3) g/dL Hct 33.9 L (37.0-47.0) % MCV 90.4 (81-99) fL MCH 27.7 L (28.0-34.0) pg MCHC 30.7 (30.0-36.0) g/dL RDW 17.8 H (12.1-15.1) % Plt Count 169 (130-400) 10^3/c mm MPV 10.7 H (7.4-10.4) fL Neut % (Auto) 60.9 % Lymph % (Auto) 25.4 % [place] % (Auto) 7.0 % Eos % (Auto) 5.6 % Baso % (Auto) 0.6 % Neut # (Auto) 5.33 (1.8-7.7) 10^3/u L Lymph # (Auto) 2.2 (0.8-4.8) 10^3/u L [place] # (Auto) 0.6 (0.2-0.9) 10^3/u L Eos # (Auto) 0.5 (0.0-0.8) 10^3/u L Baso # (Auto) 0.1 (0.0-0.1) 10^3/u L Nucleated RBC % (a uto) 0 % Nucleated RBCs # 0.0 /100WBC Sodium 136 (136-145) mmol/L Potassium 4.5 (3.5-5.1) mmol/L Chloride 100 (98-107) mmol/L Carbon Dioxide 25 (22-29) mmol/L Anion Gap 15.5 (5-19) BUN 17 (8-23) mg/dL Creatinine 0.8 (0.5-0.9) mg/dL GFR Calculation Not Reportable Glucose 172 H (65-115) mg/dL Calculated Osmolal ity 288 (285-295) mOsm/k g Lactate 1.2 (0.5-2.2) mmol/L Calcium 8.5 (8.5-10.5) mg/dL Total Bilirubin 1.0 (0.15-1.2) mg/dL AST 27 (0-32) U/L ALT 11 (0-33) U/L Alkaline Phosphata se 101 (35-105) IU/L Troponin T Baselin e (0-10) ng/L Troponin T 120 Min [place] (0-10) ng/L Delta Troponin T (0-10) ABS# NT-Pro-B Natriuret Pep (0-450) pg/mL Total Protein 7.0 (6.6-8.7) g/dL Albumin 3.3 L (3.5-5.2) g/dL Globulin 3.7 (1.3-4.6) g/dL SARS-CoV-2 Ag (Rap id) (Negative) 06/02/21 06/02/21 06/02/21 Range/Units 00:45 00:45 01:03 WBC (4.0-10.0) 10^3/ uL RBC (4.1-5.3) 10^6/u L Hgb (11.5-15.3) g/dL Hct (37.0-47.0) % MCV (81-99) fL MCH (28.0-34.0) pg MCHC (30.0-36.0) g/dL RDW (12.1-15.1) % Plt Count (130-400) 10^3/c mm MPV (7.4-10.4) fL Neut % (Auto) % Lymph % (Auto) % [place] % (Auto) % Eos % (Auto) % Baso % (Auto) % Neut # (Auto) (1.8-7.7) 10^3/u L Lymph # (Auto) (0.8-4.8) 10^3/u L [place] # (Auto) (0.2-0.9) 10^3/u L Eos # (Auto) (0.0-0.8) 10^3/u L Baso # (Auto) (0.0-0.1) 10^3/u L Nucleated RBC % (a uto) % Nucleated RBCs # /100WBC Sodium (136-145) mmol/L Potassium (3.5-5.1) mmol/L Chloride (98-107) mmol/L Carbon Dioxide (22-29) mmol/L Anion Gap (5-19) BUN (8-23) mg/dL Creatinine (0.5-0.9) mg/dL GFR Calculation Glucose (65-115) mg/dL Calculated Osmolal ity (285-295) mOsm/k g Lactate (0.5-2.2) mmol/L Calcium (8.5-10.5) mg/dL Total Bilirubin (0.15-1.2) mg/dL AST (0-32) U/L ALT (0-33) U/L Alkaline Phosphata se (35-105) IU/L Troponin T Baselin e 79 H (0-10) ng/L Troponin T 120 Min [place] (0-10) ng/L Delta Troponin T (0-10) ABS# NT-Pro-B Natriuret Pep 4909 H (0-450) pg/mL Total Protein (6.6-8.7) g/dL Albumin (3.5-5.2) g/dL Globulin (1.3-4.6) g/dL SARS-CoV-2 Ag (Rap id) Negative (Negative) 06/02/21 Range/Units 03:00 WBC (4.0-10.0) 10^3/ uL RBC (4.1-5.3) 10^6/u L Hgb (11.5-15.3) g/dL Hct (37.0-47.0) % MCV (81-99) fL MCH (28.0-34.0) pg MCHC (30.0-36.0) g/dL RDW (12.1-15.1) % Plt Count (130-400) 10^3/c mm MPV (7.4-10.4) fL Neut % (Auto) % Lymph % (Auto) % [place] % (Auto) % Eos % (Auto) % Baso % (Auto) % Neut # (Auto) (1.8-7.7) 10^3/u L Lymph # (Auto) (0.8-4.8) 10^3/u L [place] # (Auto) (0.2-0.9) 10^3/u L Eos # (Auto) (0.0-0.8) 10^3/u L Baso # (Auto) (0.0-0.1) 10^3/u L Nucleated RBC % (a uto) % Nucleated RBCs # /100WBC Sodium (136-145) mmol/L Potassium (3.5-5.1) mmol/L Chloride (98-107) mmol/L Carbon Dioxide (22-29) mmol/L Anion Gap (5-19) BUN (8-23) mg/dL Creatinine (0.5-0.9) mg/dL GFR Calculation Glucose (65-115) mg/dL Calculated Osmolal ity (285-295) mOsm/k g Lactate (0.5-2.2) mmol/L Calcium (8.5-10.5) mg/dL Total Bilirubin (0.15-1.2) mg/dL AST (0-32) U/L ALT (0-33) U/L Alkaline Phosphata se (35-105) IU/L Troponin T Baselin e (0-10) ng/L Troponin T 120 Min [place] 80.88 H (0-10) ng/L Delta Troponin T 1.88 (0-10) ABS# NT-Pro-B Natriuret Pep (0-450) pg/mL Total Protein (6.6-8.7) g/dL Albumin (3.5-5.2) g/dL Globulin (1.3-4.6) g/dL SARS-CoV-2 Ag (Rap id) (Negative) Imaging Data^: CT Abd/Pel: Radiologist's impression: [address] [address] [address] Scan Report Signed with Addenda Patient: Shankar Cam Unit #: [id number] : 1940 Age/Sex: 81 / F ADM Date: 06/02/21 Loc: ER Room/Bed: Attending Dr: Ordering Provider/Ordering MD: Nichol Harris MD Date of Service: 06/02/21 Procedure(s): CT angio chest w abd pel w con Accession Number(s): [id number] Report Number: [id number]/CT angio chest w abd pel w con THIS REPORT CONTAINS FINDINGS THAT MAY BE CRITICAL TO PATIENT CARE. The findings were verbally communicated by me to NICHOL HARRIS via telephone conference at 3:01 AM CDT on 06/02/2021. The findings were acknowledged and understood. Radiation Dose CTDIVOL = (mGy): DLP = 1765.86 1765.86 (mGy-cm) Addendum Dictated By: Ismael Thayer Addendum Signed By: Ismael Thayer Signed Date/Time: 06/02/21 030 3 Addendum Cosigned By: PROCEDURE INFORMATION: Exam: CTA Chest With Contrast Exam date and time: 06/02/2021 12:19 AM Age: 81 years old Clinical indication: Injury or trauma; Fall; Generalized; Blunt trauma (contusions or hematomas); Prior surgery; Surgery date: 6+ months; Surgery type: Hyst; Patient HX: HX colon CA TECHNIQUE: Imaging protocol: Computed tomographic angiography of the chest with contrast. 3D rendering (Not supervised by radiologist): MIP and/or 3D reconstructed images were created by the technologist. Radiation optimization: All CT scans at this facility use at least one of these dose optimization techniques: automated exposure control; mA and/or kV adjustment per patient size (includes targeted exams where dose is matched to clinical indication); or iterative reconstruction. Contrast material: OMNI 350; Contrast volume: 95 ml; Contrast route: INTRAVENOUS (IV); COMPARISON: CR (CHEST, ) 06/02/2021 12:57 AM RADIATION DOSE METRICS: Total DLP (mGy-cm): 1765.86 FINDINGS: Pulmonary arteries: No pulmonary embolism. Aorta: Unremarkable. No aortic aneurysm. No aortic dissection. Lungs: See Bones/joints finding. Pleural spaces: Unremarkable. No pneumothorax. No pleural effusion. Heart: There is mild cardiomegaly. Lymph nodes: Calcified lymph nodes are present, secondary to prior granulomatous disease. There are few borderline enlarged mediastinal lymph nodes. Bones/joints: There has been a median sternotomy. Moderate to severe pulmonary fibrosis. Soft tissues: Unremarkable. IMPRESSION: 1. No pulmonary embolism. 2. Mild cardiomegaly. 3. There has been a median sternotomy. Moderate to severe pulmonary fibrosis. PROCEDURE INFORMATION: Exam: CT Abdomen And Pelvis With Contrast Exam date and time: 06/02/2021 12:19 AM Age: 81 years old Clinical indication: Injury or trauma; Fall; Generalized; Blunt trauma (contusions or hematomas); Prior surgery; Surgery date: 6+ months; Surgery type: Hyst; Patient HX: HX colon CA TECHNIQUE: Imaging protocol: Computed tomography of the abdomen and pelvis with contrast. Radiation optimization: All CT scans at this facility use at least one of these dose optimization techniques: automated exposure control; mA and/or kV adjustment per patient size (includes targeted exams where dose is matched to clinical indication); or iterative reconstruction. Contrast material: OMNI 350; Contrast volume: 95 ml; Contrast route: INTRAVENOUS (IV); COMPARISON: CR (CHEST, ) 06/02/2021 12:57 AM RADIATION DOSE METRICS: Total DLP (mGy-cm): 1765.86 CT Head: Attestation: I personally reviewed and interpreted this imaging study as follows: Radiologist's impression: [address] [address] [address] Scan Report Signed Patient: Shankar Cam Unit #: [id number] : 1940 Age/Sex: 81 / F ADM Date: 06/02/21 Loc: ER Room/Bed: Attending Dr: Ordering Provider/Ordering MD: Nichol Harris MD Date of Service: 06/02/21 Procedure(s): CT head wo con* [id number] Accession Number(s): [id number] Report Number: [id number] PROCEDURE INFORMATION: Exam: CT Head Without Contrast Exam date and time: 06/02/2021 12:19 AM Age: 81 years old Clinical indication: Injury or trauma; Fall; Blunt trauma (contusions or hematomas); Consciousness not specified TECHNIQUE: Imaging protocol: Computed tomography of the head without contrast. Radiation optimization: All CT scans at this facility use at least one of these dose optimization techniques: automated exposure control; mA and/or kV adjustment per patient size (includes targeted exams where dose is matched to clinical indication); or iterative reconstruction. COMPARISON: CT head wo con* [id number] 07/11/2020 11:56 AM RADIATION DOSE METRICS: Total DLP (mGy-cm): 822.92 FINDINGS: Brain: There is mild hypodensity of the periventricular white matter. This is nonspecific, but a likely cause is small vessel ischemic disease. No abnormal intra-axial or extra-axial fluid collections are identified. There is no midline shift. No intracranial hemorrhage identified. Ventricles: The ventricles and sulci are mildly and diffusely prominent, compatible with global brain volume loss. Bones/joints: Unremarkable as visualized. Sinuses: Visualized sinuses are unremarkable. No fluid levels. Mastoid air cells: Visualized mastoid air cells are well aerated. Soft tissues: Unremarkable. CT/CT head wo con* [id number] IMPRESSION: 1. No acute intracranial abnormality identified. Radiation Dose CTDIVOL = (mGy): DLP = 822.92 (mGy-cm) EKG Data^: EKG 1: Attestation: I personally reviewed and interpreted this EKG as follows: EKG interpretation date: 06/02/21 EKG interpretation time: 01:29 Interpretation: afib hr [address] or t wave abnormalities qrs 90 qtc 459 Discharge Plan Discharge Patient Disposition: Admitted As Inpatient Admit Provider: Tamara Booth Clinical Impression: Altered mental status, Fall, Acute dyspnea, Spleen laceration Condition: Stable Coding Level of Care Code ED Child Care Coordinator for Chg Fwd Exam Comprehensive
[2021-06-02 01:25] LABS: Alanine Aminotransferase 11 U/L (0-33); Albumin Level 3.3 g/dL (3.5-5.2); Alkaline Phosphatase 101 IU/L (35-105); Anion Gap 15.5 (5-19); Aspartate Amino Transferase 27 U/L (0-32); Blood Urea Nitrogen 17 mg/dL (8-23); Calcium 8.5 mg/dL (8.5-10.5); Carbon Dioxide 25 mmol/L (22-29); Chloride 100 mmol/L (98-107); Globulin 3.7 g/dL (1.3-4.6); Glucose 172 mg/dL (65-115); Osmolality Calculated 288 mOsm/kg (285-295); Potassium 4.5 mmol/L (3.5-5.1); Sodium 136 mmol/L (136-145)
[2021-06-02 01:28] LABS: Lactate (Lactic Acid level) 1.2 mmol/L (0.5-2.2)
[2021-06-02 01:35] LABS: SARS Covid-2 Antigen Negative (Negative)
[2021-06-02 02:03] LABS: NT Pro B Type Natriuretic Pept 4909 pg/mL (0-450)
--- NOTE | 2021-06-02 02:20 | ECG_ITS ---
[facility] ED Test Date: 2021-06-02 Pat Name: Shankar Cam Department: Room: 111 Gender: Female Medicine Tech: : 1940 Requested By: Jesica Jean Order Number: [id number] Alex MD: Vilma Santana M.D. Measurements Intervals [place] Rate: 85 P: VA: QRS: 3 QRSD: 90 T: -40 QT: 417 QTc: 498 Interpretive Statements ATRIAL FIBRILLATION POSSIBLE RIGHT VENTRICULAR CONDUCTION DELAY [RSR (QR) IN V1/V2] ST DEVIATION AND MODERATE T-WAVE ABNORMALITY, CONSIDER ANTERIOR ISCHEMIA [-0.1+ mV T WAVE IN V3/V4] ST DEVIATION AND MODERATE T-WAVE ABNORMALITY, CONSIDER INFERIOR ISCHEMIA [-0.1+ mV T WAVE IN II/aVF] Compared to ECG 02/13/2021 22:56:57 T-wave abnormality now present Possible ischemia now present Sinus rhythm no longer present ST (T wave) deviation no longer present Electronically Signed On 06-02-2021 18:13:48 CDT by Vilma Santana M.D. [id number]
[2021-06-02] MEDS: iohexol 350 mg/mL 100 mL Btl IV (02:30)
[2021-06-02] MEDS: FUROsemide 10 mg/mL SDV 10mL 60 MG IVP (03:05)
--- NOTE | 2021-06-02 03:07 | P.HP_ITS ---
Providers/Chief Complaint Admitting Physician: Tamara Booth Primary Care Provider: Malik Weathers MD Chief Complaint: AMS Review of Systems General: Reports: ROS unobtainable due to mental status Medications/Allergies Home Medications Medication Instructions Recorded Confirmed Last Taken Type atorvastatin 40 mg PO DAILY@0700 07/11/20 06/02/21 06/01/21 07:00 History levothyroxine 75 mcg PO DAILY@0707/11/20 06/02/21 06/01/21 07:00 History Multivitamin Gummies 1 tab PO DAILY@0702/13/21 06/02/21 06/01/21 07:00 History tamsulosin 0.4 mg PO DAILY@0802/13/21 06/02/21 06/01/21 07:00 History ascorbic acid (vitamin C) 500 mg 500 mg PO DAILY 03/25/21 06/02/21 06/01/21 12:00 History tablet ferrous gluconate 324 mg (38 mg 324 mg PO DAILY 03/25/21 06/02/21 06/01/21 12:00 History iron) tablet pantoprazole 40 mg tablet,delayed 40 mg PO BID tab 03/25/21 06/02/21 06/01/21 21:00 History release metoprolol succinate 25 mg 37.5 mg PO DAILY@0800 #135 tab 05/17/21 06/02/21 06/01/21 08:00 Rx tablet,extended release 24 hr Allergies Allergy/AdvReac Type Severity Reaction Status Date / Time No Known Allergies Allergy Verified 05/31/21 10:03 PFSH Acute PFSH: Medical History Anemia Arteriosclerotic coronary artery disease Cardiomegaly Cholelithiasis Colon cancer 2006 Congestive heart failure COPD (chronic obstructive pulmonary disease) 2L NC continuous use Coronary artery disease Dyslipidemia Dyspnea Family history of [place] (myocardial infarction) Sleep apnea Ventral hernia Surgical History History of hemicolectomy Right 2006 History of PTCA Hx of bilateral cataract extraction Hx of colonoscopy 06/2019 -- no abnormalities (ileocolic anastomosis) Hx of esophagogastroduodenoscopy 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 Family History Brother Cancer Sister Cancer Other CAD (coronary artery disease) Social History Smoking and tobacco status: smoker, details unknown cigarettes [ Other cigarette details: Stop smoking 25 years ago, she used to smoke 1 pack a day for 1 to 2 years ] Alcohol intake: former 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 Vitals/I&O/Wt Last Vital Signs Temp 98.4 F 06/02/21 06:02 Pulse 91 06/02/21 06:02 Resp 20 H 06/02/21 06:02 BP 142/81 06/02/21 06:02 Pulse Ox 88 L 06/02/21 06:02 06/01/21 06/02/21 06/02/21 22:59 06:59 14:59 Output Total 400 / 400 Balance -400 / -400 Weight last 48 hrs Weight 81.647 kg Physical Exam Narrative: EXAM NARRATIVE: confused at the time of my evaluation without any distress HEENT-is grossly unremarkable Chest -clear to auscultation bilaterally CVS-regular rate rhythm Abdomen -soft nontender nondistended extremities-no edema Urinary Catheter Management^: Pro: Cath Placed During This Visit: yes Reason for Continuing Indwelling Catheter: Accurate Measurement of Urinary Output in Critically Ill Patients Urinary Catheter Date of Insertion: 06/02/21 Urinary Catheter Time of Insertion: 03:56 Data : 06/02/21 00:05 06/02/21 00:05 Micro: Microbiology 06/02/21 00:45 Blood Culture - Preliminary Blood SPECIMEN COLLECTED 06/02/21 00:30 Blood Culture - Preliminary Blood SPECIMEN COLLECTED A&P Assessment and plan (1) Fall: Status: Acute Qualifiers: Encounter type: initial encounter Qualified Code(s): W19.XXXA - Unspecified fall, initial encounter (2) Fracture of wrist: Status: Acute Qualifiers: Encounter type: initial encounter Fracture type: closed Laterality: left Qualified Code(s): S62.102A - Fracture of unspecified carpal bone, left wrist, initial encounter for closed fracture (3) Altered mental status: Status: Acute Qualifiers: Altered mental status type: unspecified Qualified Code(s): R41.82 - Altered mental status, unspecified (4) Acute dyspnea: Status: Acute Additional A&P Information Patient's baseline mental status is unknown. Due to recent fall she does have a splenic Laceration. General surgery was consulted who plan to see her today. Repeat labs in a.m.. PT OT at pain control. Attestations Medical Necessity Statement*: Anticipate over 2 midnights in hospital for evaluation and treatment of fracture with splenic laceration. Time Spent in Patient Care: Greater than 35 minutes Coding Level of Care Code Acute Lay Up Operator for g Fwd Diagnoses Fall W19.XXXA Encounter type: initial encounter Fracture of wrist S62.102A Encounter type: initial encounter Fracture type: closed Laterality: left Altered mental status R41.82 Altered mental status type: unspecified Acute dyspnea R06.00
[2021-06-02 03:11] LABS: Troponin(5th) Baseline 79 ng/L (0-10)
[2021-06-02 03:31] LABS: Troponin 5 2HR 80.88 ng/L (0-10); Troponin 5 2HR Delta 1.88 ABS# (0-10)
--- NOTE | 2021-06-02 06:04 | USCV_ITS ---
Shankar Cam Age: 81 Gender: F : 1940 Exam Date: 06/02/2021 07:06 Ordering Phys: Tamara Booth MD Technologist: Fadumo Moore [place] [facility] [place]: Respiratory distress BP: 142 / 81 HR: 82 Rhythm: Sinus Technical Quality: Fair MEASUREMENTS (Male / Female) Normal Values 2D ECHO LV Diastolic Diameter PLAX 3.9 cm 4.2 - 5.9 / 3.9 - 5.3 cm LV Systolic Diameter PLAX 2.5 cm LV Chamber Size 3.9 cm IVS Diastolic Thickness 1.3 cm 0.6 - 1.0 / 0.6 - 0.9 cm IVS Systolic Thickness 1.7 cm LVPW Diastolic Thickness 1.1 cm 0.6 - 1.0 / 0.6 - 0.9 cm LVPW Systolic Thickness 1.6 cm RV Chamber Size 2.4 cm LVOT Diameter 1.9 cm LV Ejection Fraction 2D Teich 67.2 % LA Diameter 3.9 cm LA Width 3.3 cm LA Height 5.8 cm RA Width 3.3 cm RA Height 5.4 cm Aorta at Sinotubular Diameter 2.0 cm M-MODE LV Diastolic Diameter MM 4.3 cm 4.2 - 5.9 / 3.9 - 5.3 cm LV Systolic Diameter MM 2.5 cm LV Ejection Fraction MM Teich 71.8 % IVS Diastolic Thickness MM 1.6 cm 0.6 - 1.0 / 0.6 - 0.9 cm IVS Systolic Thickness MM 1.3 cm LVPW Diastolic Thickness MM 1.6 cm 0.6 - 1.0 / 0.6 - 0.9 cm LVPW Systolic Thickness MM 1.9 cm RV Diastolic Diameter MM 2.5 cm Aortic Annulus Diameter 3.6 cm LA Ao Ratio MM 1.1 MV E Point Septal Separation 0.2 cm DOPPLER AV Peak Velocity 94.0 cm/s LVOT Peak Velocity 73.0 cm/s AV Area Cont Eq vti 2.2 cm squared AV Area Cont Eq pk 2.2 cm squared MV Area PHT 4.8 cm squared MV E' Velocity 50.5 cm/s Mitral E to MV E' Ratio 8.0 Mitral E to LV E' Lateral Ratio 6.9 Mitral E to LV E' Septal Ratio 9.4 TR Peak Velocity 371.5 cm/s TR Peak Gradient 55.2 mmHg TR Mean Velocity 260.9 cm/s TR Mean Gradient 29.6 mmHg TR Velocity Time Integral 107.5 cm TV Peak E Velocity 58.0 cm/s Right Atrial Pressure 8.0 mmHg Pulmonary Artery Systolic Pressu 63.2 mmHg PV Peak Velocity 47.0 cm/s RV Acceleration Time 0.1 s RV Ejection Time 0.2 s RV AcT/ET 0.4 FINDINGS Left Ventricle Normal left ventricular cavity size. Normal left ventricular systolic function. Left ventricular ejection fraction is estimated at 55-60 %. No diagnostic regional wall motion abnormalities. Flattened septum in systole and diastole consistent with right ventricle volume and pressure overload. Right Ventricle Moderately increased right ventricular size. Moderately to severely decreased right ventricular systolic function. Severe pulmonary hypertension, RVSP 76 mmHg. Right Atrium Moderately increased right atrial size. Aneurysmal interatrial septum with left to right deviation. No ASD or PFO identified. Right atrial pressure estimated at 8 mm Hg. Left Atrium Moderately increased left atrial size. Mitral Valve Moderate mitral annular calcification. No mitral valve stenosis. Moderate mitral valve regurgitation. Aortic Valve Mildly thickened trileaflet aortic valve. No aortic valve stenosis. No aortic valve regurgitation. Tricuspid Valve Structurally normal tricuspid valve. No tricuspid valve stenosis. Severe tricuspid valve regurgitation. Pulmonic Valve Structurally normal pulmonic valve. No pulmonary valve stenosis. Mild pulmonary valve regurgitation. Pericardium No pericardial effusion. Aorta Normal size aortic root. CONCLUSIONS 1. Normal left ventricular cavity size. Normal left ventricular systolic function. Left ventricular ejection fraction is estimated at 55-60 %. No diagnostic regional wall motion abnormalities. Flattened septum in systole and diastole consistent with right ventricle volume and pressure overload. 2. Moderately increased right ventricular size. Moderately to severely decreased right ventricular systolic function. 3. Severe tricuspid valve regurgitation. 4. Severe pulmonary hypertension with pulmonary artery pressure estimated at 76 mm Hg. 5. Moderate mitral valve regurgitation. 6. Aneurysmal interatrial septum with left to right deviation. 7. When compared to previous study dated 04/03/21, tricuspid valve regurgitation, right ventricular function and pulmonary hypertension has worsened. Vilma Santana MD (Electronically Signed) Final Date: 02 June 2021 12:45 S
[2021-06-02] MEDS: heparin 5,000 unit/mL INJ 1 mL 5000 UNIT SUBCUT ×2 (06:50→18:05)
[2021-06-02 07:03] LABS: Glucose Point of Care 126 mg/dL (70-110)
--- NOTE | 2021-06-02 08:20 | ECG_ITS ---
[facility] Test Date: 2021-06-02 Pat Name: Shankar Cam Department: Room: 111 Gender: Female Heeler: : 1940 Requested By: Jesica Jean Order Number: [id number] Alex MD: Vilma Santana M.D. Measurements Intervals [place] Rate: 84 P: VA: QRS: 5 QRSD: 84 T: -24 QT: 405 QTc: 480 Interpretive Statements ATRIAL FIBRILLATION POSSIBLE RIGHT VENTRICULAR CONDUCTION DELAY [RSR (QR) IN V1/V2] ST DEVIATION AND MODERATE T-WAVE ABNORMALITY, CONSIDER ANTERIOR ISCHEMIA [-0.1+ mV T WAVE IN V3/V4] Compared to ECG 06/02/2021 01:29:04 No significant changes Electronically Signed On 06-02-2021 18:36:25 CDT by Vilma Santana M.D. [email or web address]
[2021-06-02] MEDS: atorvastatin 40 mg Tablet PO (08:46)
[2021-06-02] MEDS: metoprolol succinate ER (24 HR) 25 mg Tablet 37.5 MG PO (08:47)
[2021-06-02] MEDS: famotidine 20 mg Tablet PO ×2 (08:47→18:05)
[2021-06-02] MEDS: levothyroxine 75 mcg Tablet PO (08:47)
--- NOTE | 2021-06-02 09:27 | P.CONIM_ITS ---
Providers/Reason For Consult Consulting Physician/Specialty*: General Surgery Pavan Walton MD Reason for Consult*: Splenic laceration following a fall 2 days ago. Attending Physician: Desmond Stuart Primary Care Provider: Malik Weathers MD History of Present Illness History of Present Illness Shankar Cam is a 81 year old female who reportedly tripped over a lamp cord and fell onto an outstretched left wrist a couple of days ago, sustaining a fracture. She came to the emergency room and was treated. She ended up having to come back to the emergency room because she says she was having pain in her wrist. She apparently was found to have somewhat of a decreased oxygen level and a CAT scan showed some evidence of pulmonary fibrosis, which I don't believe is new. Incidentally, it also found what was thought to be a small splenic laceration for which I have been asked to see the patient. The patient denies any abdominal pain and said she did not ever hurt her abdomen during the fall. Review of Systems General: Reports: 10 or more systems reviewed and unremarkable except in HPI and below Const: Denies: fever(s) Resp: Denies: dyspnea GI: Denies: abdominal pain Musc: Reports: other (Left wrist fracture) Meds/Allergies Home Medications and Allergies Home Medications Medication Instructions Recorded Confirmed Last Taken Type atorvastatin 40 mg PO DAILY@69907/11/20 06/02/21 06/01/21 07:00 History levothyroxine 75 mcg PO DAILY@69907/11/20 06/02/21 06/01/21 07:00 History Multivitamin Gummies 1 tab PO DAILY@69902/13/21 06/02/21 06/01/21 07:00 History tamsulosin 0.4 mg PO DAILY@79902/13/21 06/02/21 06/01/21 07:00 History ascorbic acid (vitamin C) 500 mg 500 mg PO DAILY 03/25/21 06/02/21 06/01/21 12:00 History tablet ferrous gluconate 324 mg (38 mg 324 mg PO DAILY 03/25/21 06/02/21 06/01/21 12:00 History iron) tablet pantoprazole 40 mg tablet,delayed 40 mg PO BID tab 03/25/21 06/02/21 06/01/21 21:00 History release metoprolol succinate 25 mg 37.5 mg PO DAILY@0800 #135 tab 05/17/21 06/02/21 06/01/21 08:00 Rx tablet,extended release 24 hr Allergies Allergy/AdvReac Type Severity Reaction Status Date / Time No Known Allergies Allergy Verified 05/31/21 10:03 Current Medications Current Medications Generic Name Dose Route Start Last Admin Trade Name Collette PRN Reason Stop Dose Admin Atorvastatin Calcium 40 mg 06/02/21 07:00 06/02/21 08:46 Atorvastatin 40 Mg Tablet PO 40 mg DAILY@0700 ANDRZEJ Administration Famotidine 20 mg 06/02/21 09:00 06/02/21 08:47 Famotidine 20 Mg Tablet PO 20 mg BID ANDRZEJ Administration Heparin Sodium (Beef Lung) 5,000 unit 06/02/21 06:15 06/02/21 06:50 Heparin 5,000 Unit/Ml Inj 1 Ml SUBCUT 5,000 unit Q12H ANDRZEJ Administration Levothyroxine Sodium 75 mcg 06/02/21 07:00 06/02/21 08:47 Levothyroxine 75 Mcg Tablet PO 75 mcg DAILY@0700 ANDRZEJ Administration Metoprolol Succinate 37.5 mg 06/02/21 08:00 06/02/21 08:47 Metoprolol Succinate Er (24 Hr) 25 Mg Tablet PO 37.5 mg DAILY@0800 ANDRZEJ Administration PFSH Acute PFSH: Medical History (Updated 06/02/21 @ 09:36 by Pavan Walton MD) Anemia Arteriosclerotic coronary artery disease Cardiomegaly Cholelithiasis Colon cancer 2006 Congestive heart failure COPD (chronic obstructive pulmonary disease) 2L NC continuous use Coronary artery disease Dyslipidemia Dyspnea Family history of TN (myocardial infarction) Pulmonary fibrosis Sleep apnea Ventral hernia Surgical History History of hemicolectomy Right 2006 History of PTCA Hx of bilateral cataract extraction Hx of colonoscopy 06/2019 -- no abnormalities (ileocolic anastomosis) Hx of esophagogastroduodenoscopy 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 Family History Brother Cancer Sister Cancer Other CAD (coronary artery disease) Social History Smoking and tobacco status: smoker, details unknown cigarettes [ Other cigarette details: Stop smoking 25 years ago, she used to smoke 1 pack a day for 1 to 2 years ] Alcohol intake: former Previous occupational history: Retired [employer] Vitals/I&O/Wt Last Vital Signs Temp 98.1 F 06/02/21 08:00 Pulse 81 06/02/21 08:00 Resp 14 06/02/21 08:00 BP 140/80 06/02/21 08:00 Pulse Ox 94 06/02/21 08:00 06/01/21 06/02/21 06/02/21 22:59 06:59 14:59 Output Total 400 / 400 Balance -400 / -400 Weight last 48 hrs Weight 180 lb Physical Exam Narrative: EXAM NARRATIVE: The patient was encountered in her room. She has a nasal cannula in place. The pupils seem equal. No carotid bruits are heard. The lungs are clear anteriorly. The heart is regular. The abdomen is mildly to moderately obese but is completely soft and nontender. Bowel sounds may be slightly hypoactive. The extremities reveal no significant edema. The left wrist is wrapped. Neurologically the patient appears to be grossly intact. Urinary Catheter Management^: Pro: Cath Placed During This Visit: yes Reason for Continuing Indwelling Catheter: Accurate Measurement of Urinary Output in Critically Ill Patients Urinary Catheter Date of Insertion: 06/02/21 Urinary Catheter Time of Insertion: 03:56 Data Micro: Micro: Microbiology 06/02/21 00:45 Blood Culture - Pr eliminary Blood SPECIMEN [facility] 06/02/21 00:30 Blood Culture - Pr eliminary Blood SPECIMEN [facility] Imaging^: CT chest/abdomen/pelvis: Radiologist's impression: CT chest/abdomen/pelvis 06/02/2021 IMPRESSION: 1. No pulmonary embolism. 2. Mild cardiomegaly. 3. There has been a median sternotomy. Moderate to severe pulmonary fibrosis. 1. Grade 2 splenic laceration. 2. There is a superior endplate compression fracture at T12 with approximately 4 mm loss of vertical height. 3. Cholelithiasis without cholecystitis. 4. Fat containing umbilical hernia. A&P Assessment and plan (1) Spleen laceration: This patient may have a grade 1?2 splenic laceration on CAT scan. She is completely asymptomatic. Her hemoglobin is actually better than normal for her. The patient is already on subcutaneous heparin DVT prophylaxis, which I have no problems with. I expect this to be able to be managed nonoperatively. I will continue to see the patient daily for now. Status: Acute Qualifiers: Encounter type: initial encounter Qualified Code(s): S36.039A - Unspecified laceration of spleen, initial encounter Consult Attestations Medical Necessity Statement: See admitting service's notation. Coding Level of Care Code Acute Food Tray Assembler for Yolanda Forman Diagnoses Spleen laceration S36.039A Encounter type: initial encounter
[2021-06-02] MEDS: FUROsemide 10 mg/mL SDV 4mL 40 MG IVP (18:05)
--- NOTE | 2021-06-02 22:57 | P.PN_ITS ---
Subjective Subjective: Interval history: Noted to be somewhat confused today by her daughter. During my visit states she is doing all right. Later in the day pain at the site of the fracture. Vitals/I&O/Wt Last Vital Signs Temp 98 F 06/02/21 20:00 Pulse 89 06/02/21 22:43 Resp 22 H 06/02/21 20:00 BP 166/118 06/02/21 20:00 Pulse Ox 92 06/02/21 22:43 06/02/21 06/02/21 06/02/21 06:59 14:59 22:59 Intake Total 168 / 168 Output Total 400 / 400 Balance -400 / -400 168 / 168 Weight last 48 hrs Weight 81.647 kg Physical Exam Const: COMMON NORMALS: no acute distress and alert GENERAL APPEARANCE: frail appearing ORIENTATION/CONSCIOUSNESS: Yes awake HENMT: COMMON NORMALS: oropharynx normal Neck/C-Spine: COMMON NORMALS: no JVD Resp: COMMON NORMALS: normal respiratory effort and clear to auscultation bilaterally AUSCULTATION: clear to auscultation bilaterally Cardio: COMMON NORMALS: no JVD, regular rhythm, S1 normal heart sound present, S2 normal heart sound present and No murmurs present (Cardio) RHYTHM: regular rhythm HEART SOUNDS: S1 normal heart sound present and S2 normal heart sound present GI: COMMON NORMALS: Normal to inspection, nondistended, normoactive bowel sounds present, Soft to palpation and non-tender PALPATION: Yes Soft to palpation Extremity: COMMON NORMALS: no joint enlargement and no pedal edema OTHER: Left wrist splint Neuro: COMMON NORMALS: moves all extremities SENSORIUM/ORIENTATION: Yes alert Skin: COMMON NORMALS: no rashes or lesions noted GENERAL SKIN EXAM: no rashes or lesions noted Urinary Catheter Management^: Pro: Cath Placed During This Visit: yes Reason for Continuing Indwelling Catheter: Other Urinary Catheter Date of Insertion: 06/02/21 Urinary Catheter Time of Insertion: 03:56 Data : 06/02/21 00:05 06/02/21 00:05 Micro: Microbiology 06/02/21 00:45 Blood Culture - Preliminary Blood SPECIMEN COLLECTED 06/02/21 00:30 Blood Culture - Preliminary Blood SPECIMEN COLLECTED A&P Assessment and plan (1) Altered mental status: Acute encephalopathy of unclear cause. Requested UA. Rapid COVID-19. Status: Acute Qualifiers: Altered mental status type: unspecified Qualified Code(s): R41.82 - Altered mental status, unspecified (2) Acute dyspnea: Possibly worsening pulmonary hypertension. Moderate to severe pulmonary fibrosis noted on CT. Continue oxygen support. Follow-up with pulmonology. Rapid COVID-19 requested. Troponin abnormality noted, 79-80. Without significant rise. No chest pain. Elevated BNP, suspected secondary to chronic lung disease. TTE obtained today with noted severe pulmonary hypertension. Follow-up with pulmonology. Severe tricuspid valve regurgitation noted. Flattened septum in systole and diastole consistent with right ventricle volume and pressure overload. Monitor for symptoms of right heart failure. Incidentally noted aneurysmal interatrial septum with left to right deviation. Obtain VQ scan. Consider pulmonary assessment. Status: Acute (3) Fall: Admitted after a fall after recent wrist fracture. PT OT Status: Acute Qualifiers: Encounter type: initial encounter Qualified Code(s): W19.XXXA - Unspecified fall, initial encounter (4) Spleen laceration: Appreciate surgery recommendations. Monitor blood count. Status: Acute Qualifiers: Encounter type: initial encounter Qualified Code(s): S36.039A - Unspecified laceration of spleen, initial encounter (5) Fracture of wrist: Follow-up with orthopedics as per prior ER visit. Status: Acute Qualifiers: Encounter type: initial encounter Fracture type: closed Laterality: left Qualified Code(s): S62.102A - Fracture of unspecified carpal bone, left wrist, initial encounter for closed fracture Attestations Medical Necessity Statement*: Continue admission for assessment of management of acute encephalopathy, dyspnea with finding of severe pulmonary hypertension, RV volume and pressure overload in a lady recently with recurrent fall, noted splenic laceration. Coding Level of Care Code Acute Corn Detasseler Machine Operator for Chg Fwd Diagnoses Altered mental status R41.82 Altered mental status type: unspecified Acute dyspnea R06.00 Fall W19.XXXA Encounter type: initial encounter Spleen laceration S36.039A Encounter type: initial encounter Fracture of wrist S62.102A Encounter type: initial encounter Fracture type: closed Laterality: left
[2021-06-03] VITALS (10 sets, daily range): BP systolic 125–141; BP diastolic 66–94; PULSE 73–95; RESP 15–30; TEMP 36.3–37.1; O2SAT 90–96
[2021-06-03 03:35] LABS: Urine Appearance SL Hazy (CLEAR); Urine Color Yellow (Yellow); pH Urine 5 (5-7)
[2021-06-03 03:36] LABS: Add Urine Microscopic? YES; Bilirubin Urine Neg (Negative); Blood Urine 2+ (Negative); Glucose Urine UA Norm (Normal); Ketones Urine Negative (Negative); Leukocyte Esterase Urine 2+ (Negative); Nitrate Urine Negative (Negative); Protein Urine Neg (Negative); Urobilinogen Urine Norm (Negative)
[2021-06-03 03:37] LABS: Bacteria Urine 2+ /hpf; RBC Urine 15-25 /hpf (0-2); Squamous Epithelial Cell Urine 0-4 /hpf (0-5); WBC Urine 25-40 /hpf (0-5)
[2021-06-03 03:38] LABS: Add Urine Culture? Yes
[2021-06-03 03:59] LABS: SARS Covid-2 Antigen Negative (Negative)
[2021-06-03 05:18] LABS: Basophils # 0.1 10^3/uL (0.0-0.1); Basophils % 0.8 %; Eosinophils # 0.4 10^3/uL (0.0-0.8); Eosinophils % 5.8 %; Hematocrit 36.5 % (37.0-47.0); Hemoglobin 11.1 g/dL (11.5-15.3); Lymphocytes # 1.4 10^3/uL (0.8-4.8); Lymphocytes % 18.8 %; Mean Corpuscular HGB Conc 30.4 g/dL (30.0-36.0); Mean Corpuscular Hemoglobin 26.7 pg (28.0-34.0); Mean Corpuscular Volume 87.7 fL (81-99); Mean Platelet Volume 10.6 fL (7.4-10.4); Monocytes # 0.7 10^3/uL (0.2-0.9); Monocytes % 9.2 %; Neutrophils # 4.67 10^3/uL (1.8-7.7); Nucleated Red Blood Cells % 0 %; Platelet Count 197 10^3/cmm (130-400); Red Blood Count 4.16 10^6/uL (4.1-5.3); Red Cell Distribution Width 17.4 % (12.1-15.1); White Blood Count 7.2 10^3/uL (4.0-10.0)
[2021-06-03 05:43] LABS: Anion Gap 17.8 (5-19); Blood Urea Nitrogen 20 mg/dL (8-23); Calcium 8.8 mg/dL (8.5-10.5); Carbon Dioxide 30 mmol/L (22-29); Chloride 95 mmol/L (98-107); Glucose 105 mg/dL (65-115); Magnesium 1.8 mg/dL (1.7-2.3); Osmolality Calculated 291 mOsm/kg (285-295); Potassium 3.8 mmol/L (3.5-5.1); Sodium 139 mmol/L (136-145)
--- NOTE | 2021-06-03 07:00 | PC.NURSE ---
Late Entry Bedside report received from Ivonne BRAGA. Patient is A & O, C/O of left wrist and back pain. Patient voices no other needs or concerns at this time.
[2021-06-03] MEDS: acetaminophen 325 mg Tablet 650 MG PO (10:14)
[2021-06-03] MEDS: metoprolol succinate ER (24 HR) 25 mg Tablet 37.5 MG PO (10:15)
[2021-06-03] MEDS: famotidine 20 mg Tablet PO ×2 (10:15→17:41)
--- NOTE | 2021-06-03 11:31 | P.PN_ITS ---
Subjective Subjective: Interval history: The patient denies abdominal pain. She says she is hungry and would like to eat. Vitals/I&O/Wt Last Vital Signs Temp 98.5 F 06/03/21 08:00 Pulse 84 06/03/21 08:00 Resp 18 06/03/21 08:00 BP 141/88 06/03/21 08:00 Pulse Ox 94 06/03/21 08:00 06/02/21 06/03/21 06/03/21 22:59 06:59 14:59 Intake Total 120 / 408 120 / 408 125 / 125 Output Total 450 / 1250 800 / 1250 Balance -330 / -842 -680 / -842 125 / 125 Weight last 48 hrs Weight 165 lb Weight 180 lb Physical Exam Narrative: EXAM NARRATIVE: Abdomen remains soft. Urinary Catheter Management^: Pro: Cath Placed During This Visit: yes Reason for Continuing Indwelling Catheter: Other Urinary Catheter Date of Insertion: 06/02/21 Urinary Catheter Time of Insertion: 03:56 Data : 06/03/21 04:43 06/03/21 04:43 Micro: Microbiology 06/02/21 00:45 Blood Culture - Preliminary Blood NEGATIVE TO DATE 06/02/21 00:30 Blood Culture - Preliminary Blood NEGATIVE TO DATE A&P Assessment and plan (1) Spleen laceration: This patient may have a grade 1?2 splenic laceration on CAT scan. She is completely asymptomatic. Her hemoglobin is stable and is actually better than normal for her. The patient is on subcutaneous heparin DVT prophylaxis, which I have no problems with. I expect this to be able to be managed nonoperatively. Advance diet when okay with hospitalist team. I will continue to see the patient daily for now. Status: Acute Qualifiers: Encounter type: initial encounter Qualified Code(s): S36.039A - Unspecified laceration of spleen, initial encounter Attestations Medical Necessity Statement*: See admitting service's notation. Coding Level of Care Code Acute Semiconductor Packages Sealer for Yolanda Forman Diagnoses Spleen laceration S36.039A Encounter type: initial encounter
--- NOTE | 2021-06-03 13:19 | P.PN_ITS ---
Subjective Subjective: Interval history: seen sitting in chair awake and alert. doesnt recall yesterday and yelling out in pain. says still has lower back pain but tolerable in chair. Vitals/I&O/Wt Last Vital Signs Temp 98.5 F 06/03/21 08:00 Pulse 84 06/03/21 08:00 Resp 18 06/03/21 08:00 BP 141/88 06/03/21 08:00 Pulse Ox 94 06/03/21 08:00 06/02/21 06/03/21 06/03/21 22:59 06:59 14:59 Intake Total 120 / 288 120 / 408 125 / 125 Output Total 450 / 450 800 / 1250 Balance -330 / -162 -680 / -842 125 / 125 Weight last 48 hrs Weight 74.843 kg Weight 81.647 kg Physical Exam Narrative: EXAM NARRATIVE: NAD. apologizes for yesterday. . H: Reg without loud murmur L: clear without wheeze or rales A: soft NT/ND normoactive BS E: no edema or erythema of lower extremities. left wrist is wrapped. spine: no significant pain with palpation of spineous processes Urinary Catheter Management^: Pro: Cath Placed During This Visit: yes Reason for Continuing Indwelling Catheter: Other Urinary Catheter Date of Insertion: 06/02/21 Urinary Catheter Time of Insertion: 03:56 Data : 06/03/21 04:43 06/03/21 04:43 Micro: Microbiology 06/02/21 00:45 Blood Culture - Preliminary Blood NEGATIVE TO DATE 06/02/21 00:30 Blood Culture - Preliminary Blood NEGATIVE TO DATE A&P Assessment and plan (1) Altered mental status: Resolved. urine culture appears contaiminated. give one more dose of recephin and will d/c Rapid COVID-19 negative. Status: Acute Qualifiers: Altered mental status type: unspecified Qualified Code(s): R41.82 - Altered mental status, unspecified (2) Acute dyspnea: stable at this time. Possibly worsening pulmonary hypertension. Moderate to severe pulmonary fibrosis noted on CT. Continue oxygen support. Rapid COVID-19 requested. TTE showed severe pulmonary hypertension. Pt on 3 L at home and now 4 L. No significant change. Severe tricuspid valve regurgitation noted. Flattened septum in systole and diastole consistent with right ventricle volume and pressure overload. Monitor for symptoms of right heart failure. Incidentally noted aneurysmal interatrial septum with left to right deviation. Status: Acute (3) Fall: Admitted after a fall + wrist fracture. PT OT Status: Acute Qualifiers: Encounter type: initial encounter Qualified Code(s): W19.XXXA - Unspecified fall, initial encounter (4) Spleen laceration: Appreciate surgery recommendations. Monitor blood count. Status: Acute Qualifiers: Encounter type: initial encounter Qualified Code(s): S36.039A - Unspecified laceration of spleen, initial encounter (5) Fracture of wrist: Follow-up with orthopedics as per prior ER visit. Status: Acute Qualifiers: Encounter type: initial encounter Fracture type: closed Laterality: left Qualified Code(s): S62.102A - Fracture of unspecified carpal bone, left wrist, initial encounter for closed fracture (6) Closed compression fracture of thoracic vertebra: T12. consulted Dr. Piero Juárez to evaluate for possible kyphoplasty. MRI to be started at 2:30. Await results and recommendations. Status: Acute Attestations Medical Necessity Statement*: altered mentation and hypoxia and acute compression fracture. Requires another midnight of care Coding Level of Care Code Acute [employer] E[employer] Operations for g Fwd Diagnoses Altered mental status R41.82 Altered mental status type: unspecified Acute dyspnea R06.00 Fall W19.XXXA Encounter type: initial encounter Spleen laceration S36.039A Encounter type: initial encounter Fracture of wrist S62.102A Encounter type: initial encounter Fracture type: closed Laterality: left Closed compression fracture of thoracic vertebra S22.000A
[2021-06-03] MEDS: CELEcoxib 200 mg Capsule 400 MG PO (14:45)
[2021-06-03] MEDS: TRAMadol 50 mg Tablet PO ×2 (14:45→20:40)
[2021-06-03] MEDS: cefTRIAXone 1,000 MG in sodium chloride 0.9% (plus) 50 ML 100 MG IV (14:46)
--- NOTE | 2021-06-03 14:56 | P.CONIM_ITS ---
Providers/Reason For Consult Consulting Physician/Specialty*: hospitalist Reason for Consult*: back pain Attending Physician: Wilver Zhang DO Primary Care Provider: Malik Weathers MD History of Present Illness History of Present Illness Shankar Cam is a 81 year old female 81-year-old female with a fall earlier's week and fractured left wrist. She also has a history of congestive heart failure. states that tonight she started getting confused and having severe shortness of breath. She is on 2 L of oxygen at baseline is requiring 5 to 6 L here has an increased work of breathing. She does have some confusion here. She is able to tell me her name and remembers falling was able to tell me what happened but does not remember the date and does get confused at times. Patient has had no fevers. states she was complaining of shortness of breath for 3 hours before arrival along with that confusion. She is having some back pain as well but states that that is been going on since the fall. Review of Systems General: Reports: 10 or more systems reviewed and unremarkable except in HPI and below and ROS unobtainable due to mental status Const: Denies: fever(s), chills, body aches or change in appetite Eyes: Denies: blurry vision or eye discomfort ENMT: Denies: throat pain or dental pain Card: Denies: chest pain Resp: Denies: dyspnea GI: Denies: abdominal pain, nausea, vomiting or diarrhea : Denies: dysuria Musc: Reports: back pain and other (Left wrist fracture) Skin/Breast: Denies: rash Neuro: Reports: confusion Psych: Denies: depression Marvin/Lymph: Denies: easy bruising All/Imm: Denies: urticaria or acute wheezing Meds/Allergies Home Medications and Allergies Home Medications Medication Instructions Recorded Confirmed Last Taken Type atorvastatin 40 mg PO DAILY@69907/11/20 06/02/21 06/01/21 07:00 History levothyroxine 75 mcg PO DAILY@69907/11/20 06/02/21 06/01/21 07:00 History Multivitamin Gummies 1 tab PO DAILY@69902/13/21 06/02/21 06/01/21 07:00 History tamsulosin 0.4 mg PO DAILY@79902/13/21 06/02/21 06/01/21 07:00 History ascorbic acid (vitamin C) 500 mg 500 mg PO DAILY 03/25/21 06/02/21 06/01/21 12:00 History tablet ferrous gluconate 324 mg (38 mg 324 mg PO DAILY 03/25/21 06/02/21 06/01/21 12:00 History iron) tablet pantoprazole 40 mg tablet,delayed 40 mg PO BID tab 03/25/21 06/02/21 06/01/21 21:00 History release metoprolol succinate 25 mg 37.5 mg PO DAILY@0800 #135 tab 05/17/21 06/02/21 06/01/21 08:00 Rx tablet,extended release 24 hr Allergies Allergy/AdvReac Type Severity Reaction Status Date / Time No Known Allergies Allergy Verified 05/31/21 10:03 Current Medications Current Medications Generic Name Dose Route Start Last Admin Trade Name Freq PRN Reason Stop Dose Admin Acetaminophen 650 mg 06/02/21 19:08 06/03/21 10:14 Acetaminophen 325 Mg Tablet PO 650 mg Q6H PRN Administration MILD PAIN Atorvastatin Calcium 40 mg 06/02/21 07:00 06/03/21 06:02 Atorvastatin 40 Mg Tablet PO Not Given DAILY@0700 ANDRZEJ Famotidine 20 mg 06/02/21 09:00 06/03/21 10:15 Famotidine 20 Mg Tablet PO 20 mg BID ANDRZEJ Administration Furosemide 40 mg 06/02/21 18:00 06/02/21 18:05 Furosemide 10 Mg/Ml Sdv 4ml IVP 40 mg Q12H ANDRZEJ Administration Heparin Sodium (Beef Lung) 5,000 unit 06/02/21 06:15 06/03/21 06:02 Heparin 5,000 Unit/Ml Inj 1 Ml SUBCUT Not Given Q12H ANDRZEJ Ceftriaxone Sodium 1,000 mg/ 50 mls @ 100 mls/hr 06/03/21 14:00 06/03/21 14:46 Sodium Chloride IV 100 mls/hr Q24H ANDRZEJ Administration Protocol Levothyroxine Sodium 75 mcg 06/02/21 07:00 06/03/21 06:02 Levothyroxine 75 Mcg Tablet PO Not Given DAILY@0700 ANDRZEJ Metoprolol Succinate 37.5 mg 06/02/21 08:00 06/03/21 10:15 Metoprolol Succinate Er (24 Hr) 25 Mg Tablet PO 37.5 mg DAILY@0800 ANDRZEJ Administration Tramadol HCl 50 mg 06/03/21 14:00 06/03/21 14:45 Tramadol 50 Mg Tablet PO 50 mg Q6H ANDRZEJ Administration PFSH Acute PFSH: Medical History (Updated 06/03/21 @ 14:59 by Piero Juárez DO) Anemia Arteriosclerotic coronary artery disease Cardiomegaly Cholelithiasis Colon cancer 2006 Congestive heart failure COPD (chronic obstructive pulmonary disease) 2L NC continuous use Coronary artery disease Dyslipidemia Dyspnea Family history of MS (myocardial infarction) Pulmonary fibrosis Sleep apnea Ventral hernia Surgical History History of hemicolectomy Right 2006 History of PTCA Hx of bilateral cataract extraction Hx of colonoscopy 06/2019 -- no abnormalities (ileocolic anastomosis) Hx of esophagogastroduodenoscopy 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 Family History Brother Cancer Sister Cancer Other CAD (coronary artery disease) Social History Smoking and tobacco status: smoker, details unknown cigarettes [ Other cigarette details: Stop smoking 25 years ago, she used to smoke 1 pack a day for 1 to 2 years ] Alcohol intake: former Previous occupational history: Retired [employer] Dietary Habits: Current diet type/program: regular Vitals/I&O/Wt Last Vital Signs Temp 97.3 F L 06/03/21 12:00 Pulse 87 06/03/21 12:00 Resp 18 06/03/21 12:00 BP 125/67 06/03/21 12:00 Pulse Ox 92 06/03/21 12:00 06/02/21 06/03/21 06/03/21 22:59 06:59 14:59 Intake Total 120 / 288 120 / 408 125 / 125 Output Total 450 / 450 800 / 1250 Balance -330 / -162 -680 / -842 125 / 125 Weight last 48 hrs Weight 165 lb Weight 180 lb Physical Exam Narrative: EXAM NARRATIVE: CONSTITUTIONAL: The patient is a normal appearing [] in no apparent distress. GENERAL: Patient in no acute distress. CARDIAC: Regular rate and rhythm. CHEST: Normal inspiratory effort, normal respiratory rate. ABDOMEN: Soft and nontender. SKIN: Clear, warm and intact. NEURO?PSYCH: The patient is alert and oriented to person, place and time. Sensorv /SILT Motor StrengthShoulder abduction C5 5/5Wrist extension C6 5/5Elbow extension C7 5/5Hand [employer] Head C8 5/5Finger abduction T15/5 Radial/ Ulnar/ Median n intact LowerSensory (SILT)Motor StrengthHin flexion L2/3Ant/inner thigh 5/5Hip adduction L2/3 5/5Knee extension L4 Lat thigh, 5/5Toe dorsiflexion L5 5/5Ankle dorsiflexion L5/ C33Qntbsbn flexion S1 5/5 DTRBleeps 2+Triceps 2+Brachioradialis 2+Patellar 2+Achilles 2+ MUSCULOSKELETAL: [] UPPEREXTREMITIES: The patient had full active ROM in fingers, wrist, elbow, and shoulder. The patient demonstrated ability to fully f matthew/extend/abduct/adduct fingers, make ok sign, cross 2nd/3rd digits, extend 1st digit fully.. Radial pulse 2+, CR<2 seconds. LOWER EXTREMITIES: Pt has full, active ROM of toes, ankle, knee, and hip. Dorsalis pedis/posterior tibialis pulses 2+, CR<2 seconds. SPINE: Skin warm, dry, intact. Urinary Catheter Management^: Pro: Cath Placed During This Visit: yes Reason for Continuing Indwelling Catheter: Other Urinary Catheter Date of Insertion: 06/02/21 Urinary Catheter Time of Insertion: 03:56 Data Micro: Micro: Microbiology 06/02/21 00:45 Blood Culture - Pr eliminary Blood NEGATIVE TO JADA E 06/02/21 00:30 Blood Culture - Pr eliminary Blood NEGATIVE TO JADA E A&P Assessment and plan (1) Back pain: will order MRI to evaluate for acute compression fracture Status: Acute Consult Attestations Medical Necessity Statement: pain Coding Level of Care Code Acute Business Intelligence Consultant for Yolanda Forman Diagnoses Back pain M54.9
--- NOTE | 2021-06-03 16:57 | PC.RESP ---
Smoking Cessation and Pulmonary Rehab information sent to patient.
[2021-06-03] MEDS: heparin 5,000 unit/mL INJ 1 mL 5000 UNIT SUBCUT (17:41)
--- NOTE | 2021-06-03 21:26 | PC.NURSE ---
NURSE NOTE: REPORT GIVEN TO MICHAEL ON MED/SURG AT THIS TIME. PT TO GO TO ROOM 278/2 SOON TRANSPORT AVAILABLE.
[2021-06-04] VITALS (9 sets, daily range): BP systolic 107–137; BP diastolic 65–76; PULSE 59–93; RESP 16–18; TEMP 36.2–36.8; O2SAT 91–97
[2021-06-04] MEDS: TRAMadol 50 mg Tablet PO ×4 (01:12→20:28)
[2021-06-04] MEDS: heparin 5,000 unit/mL INJ 1 mL 5000 UNIT SUBCUT ×2 (06:11→18:24)
[2021-06-04] MEDS: levothyroxine 75 mcg Tablet PO (06:12)
[2021-06-04] MEDS: atorvastatin 40 mg Tablet PO (06:12)
--- NOTE | 2021-06-04 07:16 | PM.PN ---
Subjective Subjective: Interval history: The patient is now on the second floor. She continues to deny any abdominal problems. She is very hungry and would like some solid food. I have to eat. Vitals/I&O/Wt Last Vital Signs Temp 98.2 F 06/04/21 04:00 Pulse 59 L 06/04/21 06:00 Resp 16 06/04/21 04:00 BP 114/67 06/04/21 04:00 Pulse Ox 94 06/04/21 04:00 06/03/21 06/04/21 06/04/21 22:59 06:59 14:59 Intake Total 190 / 315 Output Total 175 / 275 100 / 275 Balance 15 / 40 -100 / 40 Weight last 48 hrs Weight 166 lb 6.4 oz Weight 165 lb Physical Exam Narrative: EXAM NARRATIVE: The abdomen remains nontender. She has minimal left-sided chest wall tenderness. Urinary Catheter Management^: Pro: Cath Placed During This Visit: yes Reason for Continuing Indwelling Catheter: Other Urinary Catheter Date of Insertion: 06/02/21 Urinary Catheter Time of Insertion: 03:56 Data : 06/03/21 04:43 06/03/21 04:43 A&P Assessment and plan (1) Spleen laceration: This patient may have a grade 1?2 splenic laceration on presentation CAT scan. She remains asymptomatic. I will continue to see the patient daily for now. Status: Acute Qualifiers: Encounter type: initial encounter Qualified Code(s): S36.039A - Unspecified laceration of spleen, initial encounter Attestations Medical Necessity Statement*: See admitting service's notation. Coding Level of Care Code Acute Abrasive Coating Machine Operator for Yolanda Forman Diagnoses Spleen laceration S36.039A Encounter type: initial encounter
[2021-06-04] MEDS: metoprolol succinate ER (24 HR) 25 mg Tablet 37.5 MG PO (08:41)
[2021-06-04] MEDS: duloxetine 30 mg Capsule PO (08:41)
[2021-06-04] MEDS: CELEcoxib 200 mg Capsule PO ×2 (08:41→20:29)
[2021-06-04] MEDS: famotidine 20 mg Tablet PO ×2 (08:41→18:24)
[2021-06-04] MEDS: lidocaine 5% Patch 1 PATCH TOPICAL ×2 (08:45→20:51)
[2021-06-04] MEDS: cefTRIAXone 1,000 MG in sodium chloride 0.9% (plus) 50 ML 100 MG IV (13:32)
--- NOTE | 2021-06-04 15:00 | MR_ITS ---
WS: [id number] MRI LUMBAR SPINE NONCONTRAST TECHNIQUE: Sagittal T1, T2 and STIR imaging. Axial T1 and T2 imaging. CLINICAL INFORMATION: look for compression fracture COMPARISON: None. FINDINGS: Mild lumbar curve. Acute compression superior endplate T12 and inferior endplate L2 as described on t he thoracic spine MRI. No significant retropulsion. Minimal loss vertebral body height. Associated ed anali consistent with acute compression. Edema extends into the pedicles bilaterally. Pedicles appear i ntact. No retropulsion. L1-L2: Mild annular bulging with a tiny shallow central protrusion. Slight effacement of ventral thec al sac. Mild facet arthropathy. Slight narrowing of the right subarticular recess with slight impinge ment traversing right L2 nerve root. Foramen are patent. L2-L3: Mild annular bulging with mild central canal stenosis. Slight impingement on the subarticular recess bilaterally. Foramen are patent. Moderate facet arthropathy. L3-L4: Mild annular bulging with mild central canal stenosis. Impingement traversing L4 nerve roots b ilaterally in the subarticular recess. Foramen are patent. Mild facet arthropathy with ligamentum fla vum hypertrophy. L4-L5: Mild annular bulging with moderate central canal stenosis. Impingement traversing L5 nerve amara ts bilaterally. Moderate to advanced facet arthropathy. Ligamentum flavum hypertrophy. Mild left grea ter than right foraminal narrowing. L5-S1: Mild disc bulging and osteophytic ridging. Slight impingement on the traversing right greater than left S1 nerve roots. Mild facet arthropathy ligament flavum hypertrophy. Foramen are patent. Distended gallbladder with cholelithiasis. Dilated common bile duct. Filling defect in the distal com mon bile duct measuring 7 mm suspicious for choledocholithiasis. This can be further evaluated MRCP. Edema partially evaluated at the sacrococcygeal junction consistent with small nondisplaced fractures . Associated cortical irregularity with presacral edema. Recommend correlation for sacrococcygeal antonio n. MR/MR lumbar spine wo con* [id number] IMPRESSION: 1. Compression of the T12 superior endplate and L2 inferior endplate as descri bed on thoracic spine MRI. 2. Mild central canal stenosis L2-3 and L3-4. Moderate central canal stenosis L4-5 due to disc bulging with facet arthropathy and ligamentum flavum hypertrop hy. Trace anterolisthesis L4-5. 3. Narrowing of the right L1-2 subarticular recess. 4. Advanced facet arthropathy L4-5. 5. Tiny bilobed central protrusion L5-S1 with slight impingement on the right greater than left S1 nerve roots. 6. Distended gallbladder with cholelithiasis. Dilated common bile duct. Fillin g defect in the distal common bile duct suspicious for cholelithiasis measuring 7 mm. Findings can be further evaluated with ultrasound and MRCP. 7. Edema partially evaluated at the sacrococcygeal junction consistent with sm all nondisplaced fractures. Associated cortical irregularity with presacral amy ma. Recommend correlation for sacrococcygeal pain.
--- NOTE | 2021-06-04 15:01 | MR_ITS ---
WS: [id number] MRI THORACIC SPINE WITHOUT CONTRAST TECHNIQUE: Sagittal T1, T2 and STIR imaging. Axial T2 imaging. Noncontrast imaging obtained. CLINICAL INFORMATION: look for compression fracture COMPARISON: None. FINDINGS: Mild thoracic curve. Mild thoracic kyphosis. No high-grade central canal stenosis. Cord signal is nor mal. Mild compression of the superior endplate at T12 and inferior endplate at L2 with edema. Minimal loss vertebral body height. No significant retropulsion. Findings consistent with acute compression. Edema extends into the pedicles bilaterally at these levels. Pedicles appear intact. Small amount of paravertebral edema Adrenal glands are normal. Partially visualized hydropic fluid distended gallbladder with cholelithia sis. This can be further evaluated ultrasound. Dilatation of the common bile duct measuring 11 mm at the pancreatic head. Cholelithiasis. MR/MR thoracic spin wo con* [id number] IMPRESSION: 1. Acute compression involving the superior endplate at T12 and inferior endpl ate at L2. No significant retropulsion. Associated edema extending into the ped icles. Pedicles appear intact. Small amount of paravertebral edema. 2. No other acute compression fractures. Mild thoracic curve with mild thoraci c kyphosis. 3. Cord signal is normal. No significant central canal stenosis. 4. Tiny shallow central protrusions L1-L2 and L2-L3. 5. Distended gallbladder with cholelithiasis. Dilated common bile duct. Recomm end further evaluation with ultrasound.
--- NOTE | 2021-06-04 16:55 | P.PN_ITS ---
Subjective Subjective: Interval history: seen sitting in chair awake and alert. doesnt recall yesterday and yelling out in pain. says still has lower back pain but tolerable in chair. Vitals/I&O/Wt Last Vital Signs Temp 97.9 F 06/04/21 11:45 Pulse 73 06/04/21 11:45 Resp 18 06/04/21 11:45 BP 107/65 06/04/21 11:45 Pulse Ox 94 06/04/21 11:45 06/04/21 06/04/21 06/04/21 06:59 14:59 22:59 Intake Total 360 / 360 Output Total 100 / 275 Balance -100 / 40 360 / 360 Weight last 48 hrs Weight 75.478 kg Weight 74.843 kg Physical Exam Narrative: EXAM NARRATIVE: NAD. apologizes for yesterday. . H: Reg without loud murmur L: clear without wheeze or rales A: soft NT/ND normoactive BS E: no edema or erythema of lower extremities. left wrist is wrapped. spine: no significant pain with palpation of spineous processes Urinary Catheter Management^: Pro: Cath Placed During This Visit: yes Reason for Continuing Indwelling Catheter: Other Urinary Catheter Date of Insertion: 06/02/21 Urinary Catheter Time of Insertion: 03:56 Data : 06/03/21 04:43 06/03/21 04:43 Micro: Microbiology 06/03/21 02:25 Urine Culture - Final Urine,Clean Catch A&P Assessment and plan (1) Altered mental status: Resolved. urine culture appears contaiminated. give one more dose of recephin and will d/c Rapid COVID-19 negative. Status: Acute Qualifiers: Altered mental status type: unspecified Qualified Code(s): R41.82 - Altered mental status, unspecified (2) Acute dyspnea: stable at this time. Possibly worsening pulmonary hypertension. Moderate to severe pulmonary fibrosis noted on CT. Continue oxygen support. Rapid COVID-19 requested. TTE showed severe pulmonary hypertension. Pt on 3 L at home and now 4 L. No significant change. Severe tricuspid valve regurgitation noted. Flattened septum in systole and diastole consistent with right ventricle volume and pressure overload. Monitor for symptoms of right heart failure. Incidentally noted aneurysmal interatrial septum with left to right deviation. Status: Acute (3) Fall: Admitted after a fall + wrist fracture. PT OT Status: Acute Qualifiers: Encounter type: initial encounter Qualified Code(s): W19.XXXA - Unspecified fall, initial encounter (4) Spleen laceration: Appreciate surgery recommendations. Monitor blood count. Status: Acute Qualifiers: Encounter type: initial encounter Qualified Code(s): S36.039A - Unspecified laceration of spleen, initial encounter (5) Fracture of wrist: Follow-up with orthopedics as per prior ER visit. Status: Acute Qualifiers: Encounter type: initial encounter Fracture type: closed Laterality: left Qualified Code(s): S62.102A - Fracture of unspecified carpal bone, left wrist, initial encounter for closed fracture (6) Closed compression fracture of thoracic vertebra: T12. consulted Dr. Piero Juárez to evaluate for possible kyphoplasty. MRI to be started at 2:30. Await results and recommendations. Status: Acute Attestations Medical Necessity Statement*: Pt requires hospitalization due to T12 fracture/left radial for treatment decisions and mobility assessment. Coding Level of Care Code Acute Family Day Carer for g [employer] Diagnoses Altered mental status R41.82 Altered mental status type: unspecified Acute dyspnea R06.00 Fall W19.XXXA Encounter type: initial encounter Spleen laceration S36.039A Encounter type: initial encounter Fracture of wrist S62.102A Encounter type: initial encounter Fracture type: closed Laterality: left Closed compression fracture of thoracic vertebra S22.000A
[2021-06-05] VITALS (9 sets, daily range): BP systolic 104–137; BP diastolic 60–76; PULSE 64–80; RESP 15–18; TEMP 36.4–37.1; O2SAT 93–98
--- NOTE | 2021-06-05 00:47 | PC.NURSE ---
@2130 patient transferred self from bed to chair, cath and SCD remains in place, patient confused, redirected, assisted back to bed x2 staff, continue to redirect patient,
[2021-06-05] MEDS: TRAMadol 50 mg Tablet PO ×4 (01:25→21:02)
[2021-06-05] MEDS: heparin 5,000 unit/mL INJ 1 mL 5000 UNIT SUBCUT ×2 (06:13→18:09)
[2021-06-05] MEDS: atorvastatin 40 mg Tablet PO (06:13)
[2021-06-05] MEDS: levothyroxine 75 mcg Tablet PO (06:13)
[2021-06-05] MEDS: metoprolol succinate ER (24 HR) 25 mg Tablet 37.5 MG PO (09:12)
[2021-06-05] MEDS: famotidine 20 mg Tablet PO ×2 (09:12→18:09)
[2021-06-05] MEDS: CELEcoxib 200 mg Capsule PO ×2 (09:12→21:02)
[2021-06-05] MEDS: duloxetine 30 mg Capsule PO (09:13)
--- NOTE | 2021-06-05 09:42 | PM.PN ---
Subjective Subjective: Interval history: The patient continues to deny any abdominal symptoms. Her main issue is her back pain. Vitals/I&O/Wt Last Vital Signs Temp 97.7 F 06/05/21 09:10 Pulse 76 06/05/21 09:10 Resp 16 06/05/21 09:10 BP 104/70 06/05/21 09:10 Pulse Ox 98 06/05/21 09:10 06/04/21 06/05/21 06/05/21 22:59 06:59 14:59 Intake Total 240 / 650 Output Total 250 / 250 Balance 240 / 400 -250 / 400 Weight last 48 hrs Weight 162 lb 6.4 oz Weight 162 lb Weight 166 lb 6.4 oz Physical Exam Narrative: EXAM NARRATIVE: Abdo remains soft and nontender. Urinary Catheter Management^: Pro: Cath Placed During This Visit: yes Reason for Continuing Indwelling Catheter: Required Immobilization for Trauma or Surgery or Anesthesia Urinary Catheter Date of Insertion: 06/02/21 Urinary Catheter Time of Insertion: 03:56 Data : 06/03/21 04:43 06/03/21 04:43 Micro: Microbiology 06/03/21 02:25 Urine Culture - Final Urine,Clean Catch A&P Assessment and plan (1) Spleen laceration: This patient may have a grade 1?2 splenic laceration on presentation CAT scan. She remains asymptomatic and I expect this to heal without any further issues. I may not continue to see daily. Please call if I can be of further help. Status: Acute Qualifiers: Encounter type: initial encounter Qualified Code(s): S36.039A - Unspecified laceration of spleen, initial encounter Attestations Medical Necessity Statement*: See admitting service's notation. Coding Level of Care Code Acute Valve Repairer for Yolanda Forman Diagnoses Spleen laceration S36.039A Encounter type: initial encounter
[2021-06-05] MEDS: lidocaine 5% Patch 1 PATCH TOPICAL ×2 (09:49→21:02)
--- NOTE | 2021-06-05 11:16 | PM.PN ---
Subjective Subjective: Interval history: pain improving in back and wrist Vitals/I&O/Wt Last Vital Signs Temp 97.7 F 06/05/21 09:10 Pulse 76 06/05/21 09:10 Resp 16 06/05/21 09:10 BP 104/70 06/05/21 09:10 Pulse Ox 98 06/05/21 09:10 06/04/21 06/05/21 06/05/21 22:59 06:59 14:59 Intake Total 240 / 650 240 / 240 Output Total 250 / 250 Balance 240 / 650 -250 / 400 240 / 240 Weight last 48 hrs Weight 162 lb 6.4 oz Weight 162 lb Weight 166 lb 6.4 oz Physical Exam Narrative: EXAM NARRATIVE: In braces fro wrist and Back 5/5 strength Urinary Catheter Management^: Pro: Cath Placed During This Visit: yes Reason for Continuing Indwelling Catheter: Required Immobilization for Trauma or Surgery or Anesthesia Urinary Catheter Date of Insertion: 06/02/21 Urinary Catheter Time of Insertion: 03:56 Data : 06/03/21 04:43 06/03/21 04:43 Micro: Microbiology 06/03/21 02:25 Urine Culture - Final Urine,Clean Catch A&P Assessment and plan (1) Closed compression fracture of thoracic vertebra: brace for comfort d/c planning Status: Acute (2) Fracture of wrist: Status: Acute Qualifiers: Encounter type: initial encounter Fracture type: closed Laterality: left Qualified Code(s): S62.102A - Fracture of unspecified carpal bone, left wrist, initial encounter for closed fracture Attestations Medical Necessity Statement*: ok to d/c from spine and wrist stand point Coding Level of Care Code Acute Gym Instructor for [facility] Diagnoses Closed compression fracture of thoracic vertebra S22.000A Fracture of wrist S62.102A Encounter type: initial encounter Fracture type: closed Laterality: left
--- NOTE | 2021-06-05 12:16 | PC.SOCIAL ---
IMM UPDATE Gave patient IMM update w/ son at bedside. Provided copy of pg 2. Verbalized understanding. 06/05/21 @ 1026 Initialed, dated, timed and placed in chart.
[2021-06-05] MEDS: cefTRIAXone 1,000 MG in sodium chloride 0.9% (plus) 50 ML 100 MG IV (14:05)
--- NOTE | 2021-06-05 15:27 | P.PN_ITS ---
Subjective Subjective: Interval history: feels well and thinks she can go home. Despite explaining her new condition with multiple broken bones she initally felt that her family could help even though they would not be able to. I called and spoke with jose antonio and had her and son meet with me and Teresita TRAN in room. Explained the 4 fractures pt has and our concern for safetly. with family prescense and their support pt is agreeable for SNF for rehab and home safety assistance. Medications: Reviewed: Yes Vitals/I&O/Wt Last Vital Signs Temp 98.1 F 06/05/21 12:18 Pulse 68 06/05/21 12:18 Resp 16 06/05/21 12:18 BP 104/64 06/05/21 12:18 Pulse Ox 98 06/05/21 12:18 06/05/21 06/05/21 06/05/21 06:59 14:59 22:59 Intake Total 525 / 525 Output Total 250 / 250 Balance -250 / 400 525 / 525 Weight last 48 hrs Weight 73.663 kg Weight 73.482 kg Weight 75.478 kg Physical Exam Narrative: EXAM NARRATIVE: NAD. H: Reg without loud murmur L: clear without wheeze or rales A: soft NT/ND normoactive BS E: no edema or erythema of lower extremities. left wrist is wrapped. spine: no significant pain with palpation of spineous processes Urinary Catheter Management^: Pro: Cath Placed During This Visit: yes Reason for Continuing Indwelling Catheter: Required Immobilization for Trauma or Surgery or Anesthesia Urinary Catheter Date of Insertion: 06/02/21 Urinary Catheter Time of Insertion: 03:56 Data : 06/03/21 04:43 06/03/21 04:43 Micro: Microbiology 06/03/21 02:25 Urine Culture - Final Urine,Clean Catch A&P Assessment and plan (1) Altered mental status: Resolved. Returned to baseline. urine culture appears contaiminated. antibiotics stopped. Rapid COVID-19 negative. Status: Acute Qualifiers: Altered mental status type: unspecified Qualified Code(s): R41.82 - Altered mental status, unspecified (2) Acute dyspnea: Resolved. 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 Status: Acute (3) Fall: Admitted after a fall + wrist fracture. PT OT requires SNf for home safety Status: Acute Qualifiers: Encounter type: initial encounter Qualified Code(s): W19.XXXA - Unspecified fall, initial encounter (4) Spleen laceration: Appreciate surgery recommendations. Status: Acute Qualifiers: Encounter type: initial encounter Qualified Code(s): S36.039A - Unspecified laceration of spleen, initial encounter (5) Fracture of wrist: Follow-up with orthopedics Status: Acute Qualifiers: Encounter type: initial encounter Fracture type: closed Laterality: left Qualified Code(s): S62.102A - Fracture of unspecified carpal bone, left wrist, initial encounter for closed fracture (6) Closed compression fracture of thoracic vertebra: T12 and L5. along with sacral fx. Discussed with Dr. Juárez. NO indication for intervention. Prefer no TLSO brace if can tolerate mobility which she can. Status: Acute Attestations Medical Necessity Statement*: Pt at high risk of recurrent fall espeically w ith fx wrist, spine and sacrum. Another fall could potentially be fatal with blow to head or hip fracture. Requires hosptialization until appropriate next level of care can be found. 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
--- NOTE | 2021-06-06 00:19 | PC.NURSE ---
pt sitting up on the end of bed refusing to lay down. pt claims that we are going through her house and stealing her stuff, cursing at the staff and telling them to get out of her house. will continue to try to reorient pt.
--- NOTE | 2021-06-06 01:21 | PC.NURSE ---
pt is now laying in bed and resting, will continue to monitor pt for confusion.
[2021-06-06] MEDS: atorvastatin 40 mg Tablet PO (06:13)
[2021-06-06] MEDS: levothyroxine 75 mcg Tablet PO (06:13)
[2021-06-06] MEDS: heparin 5,000 unit/mL INJ 1 mL 5000 UNIT SUBCUT ×2 (06:14→18:38)
[2021-06-06 07:35] VITALS: BP 127/81; PULSE 68; RESP 18; TEMP 36.6; O2SAT 100
[2021-06-06] MEDS: metoprolol succinate ER (24 HR) 25 mg Tablet 37.5 MG PO (09:43)
[2021-06-06] MEDS: lidocaine 5% Patch 1 PATCH TOPICAL ×2 (09:44→22:39)
[2021-06-06] MEDS: TRAMadol 50 mg Tablet PO ×3 (09:44→22:38)
[2021-06-06] MEDS: CELEcoxib 200 mg Capsule PO ×2 (09:44→22:38)
[2021-06-06] MEDS: duloxetine 30 mg Capsule PO (09:44)
[2021-06-06] MEDS: famotidine 20 mg Tablet PO ×2 (09:44→18:38)
[2021-06-06 10:29] LABS: SARS Covid-2 Antigen Negative (Negative)
[2021-06-06 11:29] VITALS: BP 112/72; PULSE 72; RESP 17; TEMP 36.3; O2SAT 100
[2021-06-06 14:00] VITALS: PULSE 66
--- NOTE | 2021-06-06 15:08 | PM.PN ---
Subjective Subjective: Interval history: no complaints. Sleeping. Medications: Reviewed: Yes Vitals/I&O/Wt Last Vital Signs Temp 97.4 F L 06/06/21 11:29 Pulse 72 06/06/21 11:29 Resp 17 06/06/21 11:29 BP 112/72 06/06/21 11:29 Pulse Ox 100 06/06/21 11:29 06/06/21 06/06/21 06/06/21 06:59 14:59 22:59 Intake Total 600 / 600 Output Total 0 / 0 Balance 0 / 825 600 / 600 Weight last 48 hrs Weight 73.663 kg Weight 73.482 kg Physical Exam Narrative: EXAM NARRATIVE: NAD. H: Reg without loud murmur L: clear without wheeze or rales A: soft NT/ND normoactive BS E: no edema or erythema of lower extremities. left wrist is wrapped. spine: no significant pain with palpation of spineous processes Urinary Catheter Management^: Pro: Cath Placed During This Visit: yes Reason for Continuing Indwelling Catheter: Required Immobilization for Trauma or Surgery or Anesthesia Urinary Catheter Date of Insertion: 06/02/21 Urinary Catheter Time of Insertion: 03:56 Data : 06/03/21 04:43 06/03/21 04:43 A&P Assessment and plan (1) Altered mental status: Resolved. Returned to baseline. urine culture appears contaiminated. antibiotics stopped. Rapid COVID-19 negative. Status: Acute Qualifiers: Altered mental status type: unspecified Qualified Code(s): R41.82 - Altered mental status, unspecified (2) Acute dyspnea: Resolved. 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 Status: Acute (3) Fall: Admitted after a fall + wrist fracture. PT OT requires SNf for home safety Status: Acute Qualifiers: Encounter type: initial encounter Qualified Code(s): W19.XXXA - Unspecified fall, initial encounter (4) Spleen laceration: Appreciate surgery recommendations. Status: Acute Qualifiers: Encounter type: initial encounter Qualified Code(s): S36.039A - Unspecified laceration of spleen, initial encounter (5) Fracture of wrist: Follow-up with orthopedics Status: Acute Qualifiers: Encounter type: initial encounter Fracture type: closed Laterality: left Qualified Code(s): S62.102A - Fracture of unspecified carpal bone, left wrist, initial encounter for closed fracture (6) Closed compression fracture of thoracic vertebra: T12 and L5. along with sacral fx. Discussed with Dr. Juárez. NO indication for intervention. Prefer no TLSO brace if can tolerate mobility which she can. Status: Acute Attestations Medical Necessity Statement*: Pt at high risk of recurrent fall espeically with fx wrist, spine and sacrum. Another fall could potentially be fatal with blow to head or hip fracture. 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
[2021-06-06 16:00] VITALS: BP 121/70; PULSE 70; RESP 17; TEMP 36.9; O2SAT 94
[2021-06-06 20:00] VITALS: BP 127/73; PULSE 73; RESP 18; TEMP 36.6; O2SAT 99
[2021-06-07] VITALS: BP 117/75; PULSE 60; RESP 16; TEMP 36.4; O2SAT 98
[2021-06-07] MEDS: TRAMadol 50 mg Tablet PO ×2 (02:59→09:04)
[2021-06-07 04:00] VITALS: BP 107/71; PULSE 63; RESP 15; TEMP 36.7
[2021-06-07 06:00] VITALS: PULSE 56
[2021-06-07] MEDS: heparin 5,000 unit/mL INJ 1 mL 5000 UNIT SUBCUT (06:10)
[2021-06-07] MEDS: levothyroxine 75 mcg Tablet PO (06:10)
[2021-06-07 08:00] VITALS: BP 124/73; PULSE 82; RESP 22; TEMP 36.4; O2SAT 96
[2021-06-07] MEDS: FUROsemide 20 mg Tablet PO (09:03)
[2021-06-07] MEDS: metoprolol succinate ER (24 HR) 25 mg Tablet 37.5 MG PO (09:03)
[2021-06-07] MEDS: duloxetine 30 mg Capsule PO (09:04)
[2021-06-07] MEDS: famotidine 20 mg Tablet PO (09:04)
[2021-06-07] MEDS: CELEcoxib 200 mg Capsule PO (09:04)
[2021-06-07] MEDS: lidocaine 5% Patch 1 PATCH TOPICAL (09:05)
--- NOTE | 2021-06-07 11:31 | P.PN_ITS ---
Vitals/I&O/Wt Last Vital Signs Temp 97.6 F 06/07/21 08:00 Pulse 82 06/07/21 08:00 Resp 22 H 06/07/21 08:00 BP 124/73 06/07/21 08:00 Pulse Ox 96 06/07/21 08:00 06/06/21 06/07/21 06/07/21 22:59 06:59 14:59 Intake Total 480 / 1080 240 / 1320 300 / 300 Output Total 200 / 200 300 / 500 Balance 280 / 880 -60 / 820 300 / 300 Weight last 48 hrs Weight 73.981 kg Physical Exam Urinary Catheter Management^: Pro: Cath Placed During This Visit: yes Reason for Continuing Indwelling Catheter: Not indwelling catheter Urinary Catheter Date of Insertion: 06/02/21 Urinary Catheter Time of Insertion: 03:56 Data : 06/03/21 04:43 06/03/21 04:43 Micro: Microbiology 06/02/21 00:45 Blood Culture - Final Blood NO GROWTH AFTER 5 DAYS 06/02/21 00:30 Blood Culture - Final Blood NO GROWTH AFTER 5 DAYS Coding Level of Care Code Acute [employer]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
[2021-06-07 12:00] VITALS: BP 147/93; PULSE 70; RESP 16; TEMP 36.8; O2SAT 100
[2021-06-07 12:24] LABS: SARS Covid-2 Antigen Negative (Negative)
--- NOTE | 2021-06-07 12:35 | PC.SOCIAL ---
IMM UPDATE Gave patient Imm update. Provided her copy of pg 2 of IMM. 06/07/21 @ 1007. Initialed, dated, timed and placed in chart.
--- NOTE | 2021-06-07 12:41 | P.DS_ITS ---
Discharge Providers Date of Admission: 06/02/21 03:49 Date of Discharge: June 07, 2021 Attending Provider at Admission: Tamara Booth Attending Provider at Discharge: Wilver Zhang DO Primary Care Provider: Malik Weathers MD Diagnoses at Discharge Discharge Diagnosis (1) Altered mental status: Status: Acute Qualifiers: Altered mental status type: unspecified Qualified Code(s): R41.82 - Altered mental status, unspecified (2) Acute dyspnea: Status: Acute (3) Fall: Status: Acute Qualifiers: Encounter type: initial encounter Qualified Code(s): W19.XXXA - Unspecified fall, initial encounter (4) Spleen laceration: Status: Acute Qualifiers: Encounter type: initial encounter Qualified Code(s): S36.039A - Unspecified laceration of spleen, initial encounter (5) Fracture of wrist: Status: Acute Qualifiers: Encounter type: initial encounter Fracture type: closed Laterality: left Qualified Code(s): S62.102A - Fracture of unspecified carpal bone, left wrist, initial encounter for closed fracture (6) Closed compression fracture of thoracic vertebra: Status: Acute Reason for Visit Reason for Visit: [facility] Hospital Course Hospital Course 81-year-old woman who lives alone presented to the ER after a fall she was found to have a left wrist fracture. Consultation with orthopedics recommended a brace. Also patient had severe back pain. An MRI revealed 2 compression fractures T12 and L1. Again consultation with orthopedics felt that these were mild and that the as long as the patient could ambulate and transfer no further intervention. Lastly it was noted that she also had a small sacral fracture. Initially it was felt that she may have a UTI however culture revealed it was contaminated. Patient has known severe pulmonary fibrosis with pulmonary hypertension she is on oxygen at home. She was able to be returned to her baseline oxygen. Due to the patient's age living alone and history of fall she is at high risk for recurrent fall and given her wrist fracture and other fractures make her much more immobile. It was greatly encouraged to seek further therapy prior to discharge home. Family was unable to provide 24-hour care. Thus longterm facility was obtained finally. She will be discharged in stable and improved condition. Physical Exam Narrative: EXAM NARRATIVE: NAD. H: Reg without loud murmur L: clear without wheeze or rales A: soft NT/ND normoactive BS E: no edema or erythema of lower extremities. left wrist is wrapped. spine: no significant pain with palpation of spineous processes Urinary Catheter Management^: Pro: Cath Placed During This Visit: yes Reason for Continuing Indwelling Catheter: Not indwelling catheter Urinary Catheter Date of Insertion: 06/02/21 Urinary Catheter Time of Insertion: 03:56 Discharge Data Data Completed and Pending: Completed Studies During Hospitalization Category Date Time Status CT angio chest w abd pel w con Urge nt Cat Scan 06/02/21 00:[address] cervical spin wo con* 39601 Urge nt Cat Scan 06/02/21 00:[address] head wo con* 7 0450 Urgent Cat Scan 06/02/21 00:19 Completed XR chest 1V filemon ble [id number] Urgent Exams 06/02/21 00:19 Completed MR lumbar spine w o con* [id number] Routi ne MRI 06/04/21 15:00 Completed MR thoracic spin wo con* [id number] Rout ine MRI 06/04/21 15:01 Completed CV. echo complete * [id number] Routine Ultrasound 06/02/21 06:04 Completed Labs from last 24 hours 06/07/21 Unknown SARS-CoV-2 Ag (Rap id) Negative Vitals: Last Vital Signs Temp 97.6 F 06/07/21 08:00 Pulse 82 06/07/21 08:00 Resp 22 H 06/07/21 08:00 BP 124/73 06/07/21 08:00 Pulse Ox 96 06/07/21 08:00 Discharge Plan Discharge Patient Disposition: Xfer SNF Condition: Stable Prescriptions: New celecoxib 200 mg Capsule 200 mg PO Q12H Qty: 30 RF: 0 tramadol 50 mg Tablet 50 mg PO Q6H Qty: 30 RF: 0 lidocaine 5 % Adhesive Patch,Medicated 1 patch topical [id number] Qty: 30 RF: 0 heparin (porcine) 5,000 unit/mL Solution 5,000 unit SUBCUT Q12H Qty: 60 RF: 0 duloxetine 30 mg Capsule,Delayed Release(Dr/Ec) 30 mg PO DAILY Qty: 30 RF: 0 Lasix 40 mg tablet 20 mg PO QAM Qty: 30 RF: 0 Continued pantoprazole 40 mg tablet,delayed release (DR/EC) 40 mg PO BID RF: 0 ascorbic acid (vitamin C) 500 mg tablet 500 mg PO DAILY RF: 0 ferrous gluconate 324 mg (38 mg iron) tablet 324 mg PO DAILY RF: 0 metoprolol succinate 25 mg tablet extended release 24 hr 37.5 mg PO DAILY@0800 Qty: 135 RF: 3 tamsulosin 0.4 mg capsule 0.4 mg PO DAILY@0800 RF: 0 Multivitamin Gummies 200 mcg Tablet,Chewable 1 tab PO DAILY@0700 RF: 0 atorvastatin 40 mg tablet 40 mg PO DAILY@0700 RF: 0 levothyroxine 75 mcg tablet 75 mcg PO DAILY@0700 RF: 0 Discharge Orders: Discharge Order (Routine); Ordered 06/06/21 Ordered By: Wilver Zhang Referrals: [facility] [Outside] Malik Weathers MD [Primary Care Provider] - 06/12/21 10:00 am Discharge Diet: Cardiac Discharge Activity: Increase activity as tolerated Activity Restrictions/Additional Instructions: up as tolerated f/u ortho clinic in 2 weeks Discharge Attestations Time Spent in Discharge Care*: greater than 30 min Specific Discharge Activities: educating patient, educating and/or supporting family/caregiver, discussing with pcp/other providers, discussing with briefcase sewer/social workers/dc planners and documenting/other paperwork Quality Metrics Clinical Quality Measures During this hospital stay, did patient experience: None Coding Level of Care Code Acute [facility] DC note Diagnoses Altered mental status R41.82 Altered mental status type: unspecified Acute dyspnea R06.00 Fall W19.XXXA Encounter type: initial encounter Spleen laceration S36.039A Encounter type: initial encounter Fracture of wrist S62.102A Encounter type: initial encounter Fracture type: closed Laterality: left Closed compression fracture of thoracic vertebra S22.000A
[2021-06-07 15:28] VITALS: BP 145/73; PULSE 77; RESP 20; TEMP 36.9; O2SAT 99
== END 2021-06-07 18:04 | disposition skilled nursing facility (03) | DRG 964 ==
LOC: ER 03:50 → CSU 04:00 → MEDSURG 06-03 22:02
PROVIDERS: Internal Medicine; Admitting Provider Hospitalist; Emergency Provider Emergency Medicine; PCP Family Medicine; Visit Provider Internal Medicine
DX: S22.080A Wedge compression fracture of T11-T12 vertebra, initial encounter for closed fracture (principal); S36.039A Unspecified laceration of spleen, initial encounter; S32.10XA Unspecified fracture of sacrum, initial encounter for closed fracture; S32.050A Wedge compression fracture of fifth lumbar vertebra, initial encounter for closed fracture; W01.0XXA Fall on same level from slipping, tripping and stumbling without subsequent striking against object, initial encounter; S62.102A Fracture of unspecified carpal bone, left wrist, initial encounter for closed fracture; Z99.81 Dependence on supplemental oxygen; D64.9 Anemia, unspecified; I25.10 Atherosclerotic heart disease of native coronary artery without angina pectoris; Z95.1 Presence of aortocoronary bypass graft; Z85.038 Personal history of other malignant neoplasm of large intestine; Z90.49 Acquired absence of other specified parts of digestive tract; J44.9 Chronic obstructive pulmonary disease, unspecified; E78.5 Hyperlipidemia, unspecified; G47.30 Sleep apnea, unspecified; Z87.891 Personal history of nicotine dependence; J84.10 Pulmonary fibrosis, unspecified; R41.82 Altered mental status, unspecified; I27.20 Pulmonary hypertension, unspecified; I07.1 Rheumatic tricuspid insufficiency
CPT/HCPCS: 29125; 36416; 51702; 70450; 71045; 71275; 72100; 72125; 72146; 72148; 72170; 73110; 74177; 80048; 80053; 81001; 82962; 83605; 83735; 83880; 84484; 85025; 87040; 87086; 87426; 93005; 93306; 94664; 96372; 96374; 96375; 97110; 97116; 97161; 97166; 97530; 99283; 99285; J0696; J1644; J1940; L0456; Q0162; Q9967

== ENCOUNTER → 2021-07-09 10:28 | Outpatient (BNVA) | payer MEDICARE, MEDICAID, SELFPAY | PROVIDERS: PCP Family Medicine; Visit Provider Orthopaedic Surgery | DX: S22.000A Wedge compression fracture of unspecified thoracic vertebra, initial encounter for closed fracture (principal); M54.6 Pain in thoracic spine; S52.612A Displaced fracture of left ulna styloid process, initial encounter for closed fracture; X58.XXXA Exposure to other specified factors, initial encounter | CPT/HCPCS: 72100; 73110 ==

== ENCOUNTER → 2021-08-13 10:30 | Outpatient (BNVA) | payer MEDICARE, MEDICAID, SELFPAY | PROVIDERS: PCP Family Medicine; Visit Provider Orthopaedic Surgery | DX: S62.102A Fracture of unspecified carpal bone, left wrist, initial encounter for closed fracture (principal); S22.000A Wedge compression fracture of unspecified thoracic vertebra, initial encounter for closed fracture; M25.532 Pain in left wrist; X58.XXXA Exposure to other specified factors, initial encounter | CPT/HCPCS: 72080; 73110 ==

== ENCOUNTER 2021-10-22 06:00 | Outpatient (RCR) | payer MEDICARE, MEDICAID, SELFPAY | END 2021-10-22 23:00 | disposition home or self-care (01) | LOC: SOT 06:00 | PROVIDERS: PCP Family Medicine; Referring Provider Family Medicine; Visit Provider Family Medicine | DX: M54.9 Dorsalgia, unspecified (principal); J96.11 Chronic respiratory failure with hypoxia | CPT/HCPCS: 97167; 97530 ==

== ENCOUNTER 2022-01-02 03:44 | Emergency (ER) | payer MEDICARE, MEDICAID, SELFPAY ==
[2022-01-02] VITALS (12 sets, daily range): BP systolic 140–177; BP diastolic 78–127; PULSE 74–94; RESP 16–18; TEMP 36.8; O2SAT 97–100; BMI 26.5
--- NOTE | 2022-01-02 03:45 | ED_ITS ---
Documented by User: Fidel Bond MD 01/07/22 22:54 HPI - Abdominal Pain General: Chief Complaint: Abdominal Pain Stated Complaint: abd pain Time Seen by Provider: 01/02/22 03:45 History of Present Illness: Ms. Cam is an 81-year-old lady with significant p ast medical history of CAD, hypertension, hyperlipidemia, pulmonary fibrosis with chronic hypoxic respiratory failure on 4 L at baseline atrial fibrillation not on anticoagulation secondary to frequent falls, and heart failure with preserved ejection fraction/severe pulmonary hypertension who presents the emergency department due to abdominal pain. She reports the past few days being at her baseline health. She went to the bathroom and had a bowel movement at about midnight prior to going to bed. By the time she got to bed she started developing subacute onset generalized abdominal pain. Pain is diffuse and dull. Intensity is moderate to severe. Worse with movement and palpation. She denies associated straining or blood in stool, she did think that her bowel movement was smaller than normal. Overall the course of symptoms has worsened. No other specific change in health, exacerbating, relieving factors identified. Pertinent past history: none Onset (ago): hour(s) Pain Consistency: constant Location: Diffuse Severity: severe Quality: dull Radiation: none Migration to: no migration Exacerbating factors: movement Relieving factors: nothing Associated Symptoms: Reports nausea Review of Systems General: Reports: 10 or more systems reviewed and unremarkable except in HPI and below GI: Reports: nausea PFSH ED PFSH: Medical History Anemia Arteriosclerotic coronary artery disease Cardiomegaly Cholelithiasis Colon cancer 2006 Congestive heart failure COPD (chronic obstructive pulmonary disease) 2L NC continuous use Coronary artery disease Dyslipidemia Dyspnea Family history of [place] (myocardial infarction) Pulmonary fibrosis Sleep apnea Spleen laceration Ventral hernia Surgical History History of hemicolectomy Right 2006 History of PTCA Hx of bilateral cataract extraction Hx of colonoscopy 06/2019 -- no abnormalities (ileocolic anastomosis) Hx of esophagogastroduodenoscopy 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 Family History Brother Cancer Sister Cancer Other CAD (coronary artery disease) Social History Smoking and tobacco status: former smoker (40+ years ago) Alcohol intake: former 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 Physical Exam Const: COMMON NORMALS: alert GENERAL APPEARANCE: cooperative and well devel oped HENMT: COMMON NORMALS: normocephalic and atraumatic HEAD & SCALP: normocephalic and atraumatic OTHER: Dry mucous membranes Eye: COMMON NORMALS: conjunctivae normal CONJUNCTIVA: Yes conjunctivae normal SCLERA: sclerae normal Neck/C-Spine: COMMON NORMALS: supple GENERAL: Yes trachea midline Resp: COMMON NORMALS: normal respiratory effort EFFORT & INSPECTION: Yes able to speak in complete sentences AUSCULTATION: diminished lung sounds and bronchovesicular breath sounds Cardio: COMMON NORMALS: regular rate RATE: regular rate RHYTHM: abnormal rhythm irregularly irregular GI: COMMON NORMALS: Soft to palpation PALPATION: Yes Soft to palpation, Yes Tenderness to palpation present (GI) and No Rigid due to palpation OTHER: Tenderness to percussion generalized Extremity: GENERAL: Yes normal exam except as noted and No edema Neuro: COMMON NORMALS: moves all extremities SENSORIUM/ORIENTATION: Yes alert and No Orientation impaired Psych: COMMON NORMALS: mental status grossly normal and Normal thought process present THOUGHT PROCESS: Normal thought process present Course ED course: - Patient was seen and evaluated by me at bedside - Patient placed on cardiac monitors, IV access obtained - Initial evaluation notable for exam as above - Analgesia ordered - Labs notable for no leukocytosis, normocytic anemia. Metabolic panel with out acute electrolyte derangement requiring intervention. There is transaminitis, elevated bilirubin, and elevated lipase. - Antibiotic ordered - Imaging notable for no acute finding on chest x-ray. CT abdomen pelvis notable for stone in common bile duct with perhaps evidence of cholecystitis. - Upon serial reexamination after treatment the patient was improved with resolution of pain - Patient care handed off to morning ED physician Dr. Spaulding pending transfer acceptance to outside facility capable of performing ERCP Note: Click bubbles or prepopulated merino in note writing are used for assistance with data collection and billing and are inherently more limited than narrative and other text portions of this note. Please use narrative for additional clinical history and defer to narrative/free test for any case of contradictory information. If information appears in only free text or click bubble it should be considered present or absent as reported. Please contact note card writer hand for clarifications of clinical information or contradictory information. MDM is a brief summary, contradictory or erroneous seeming information should be clarified and full note should be reviewed. Vital Signs: Vital signs: Vital Signs Temperature 98.2 F 01/02/22 03:45 Pulse Rate 75 01/02/22 16:36 Respiratory Rate 16 01/02/22 16:36 Blood Pressure 158/86 01/02/22 15:03 Pulse Oximetry 99 01/02/22 16:36 MDM - Abdominal Pain Medical Decision Making 81-year-old lady presenting to the emergency department due to abdominal pain. Patient found to have choledocholithiasis and questionable cholecystitis. Handed off to Dr Spaulding pending outside transfer and accepting facility. Case was discussed with Dr. Mckeon who agreed with the transfer to [facility] for management of choledocholithiasis. Disposition: Transfer to outside hospital Medical Records I reviewed the patient's medical records. Lab Data I reviewed the patient's lab results. : 01/02/22 03:35 01/02/22 03:35 Labs/Radiology: Radiology Impressions Abdomen/Pelvis CT 01/02/22 03:55 IMPRESSION: 1. Cholelithiasis with questionable cholecystitis. 2. 7 mm stone in the distal common bile duct with mild ductal dilation. 3. Small amount of gas in the urinary bladder which may be secondary to recent manipulation or infection. 4. Diverticulosis without diverticulitis. 5. Age indeterminate compression deformities at L2 and T12. COMMENTS: Consistent with the [employer]'s Incidental Findings Committee white paper (J Am Chepe Radiol 2018): Any incidental renal lesion less than 1 cm or classified as too small to characterize, or any incidental cystic renal lesion characterized as simple-appearing, is likely benign. No follow-up imaging is recommended for these lesions per consensus recommendations based on imaging criteria. Chest X-Ray 01/02/22 03:55 IMPRESSION: 1. Mild cardiomegaly. 2. Stable changes of pulmonary fibrosis. 3. No acute infiltrate. Laboratory Results WBC 8.5 10^3/uL (4.0-10.0) 01/02/22 03:35 RBC 3.39 10^6/uL (4.1-5.3) L 01/02/22 03:35 Hgb 9.9 g/dL (11.5-15.3) L 01/02/22 03:35 Hct 32.8 % (37.0-47.0) L 01/02/22 03:35 MCV 96.8 fl (81-99) 01/02/22 03:35 MCH 29.2 pg (28.0-34.0) 01/02/22 03:35 MCHC 30.2 g/dL (30.0-36.0) 01/02/22 03:35 RDW 13.3 % (12.1-15.1) 01/02/22 03:35 Plt Count 252 10^3/cmm (130-400) 01/02/22 03:35 MPV 10.2 fL (7.4-10.4) 01/02/22 03:35 Neut % (Auto) 67.1 % 01/02/22 03:35 Lymph % (Auto) 21.8 % 01/02/22 03:35 Twiggs % (Auto) 7.6 % 01/02/22 03:35 Eos % (Auto) 2.7 % 01/02/22 03:35 Baso % (Auto) 0.4 % 01/02/22 03:35 Neut # (Auto) 5.68 10^3/uL (1.8-7.7) 01/02/22 03:35 Lymph # (Auto) 1.8 10^3/uL (0.8-4.8) 01/02/22 03:35 [place]gs # (Auto) 0.6 10^3/uL (0.2-0.9) 01/02/22 03:35 Eos # (Auto) 0.2 10^3/uL (0.0-0.8) 01/02/22 03:35 Baso # (Auto) 0.0 10^3/uL (0.0-0.1) 01/02/22 03:35 Nucleated RBC % (auto) 0 % 01/02/22 03:35 Nucleated RBCs # 0.0 /100WBC 01/02/22 03:35 Sodium 142 mmol/L (136-145) 01/02/22 03:35 Potassium 4.2 mmol/L (3.5-5.1) 01/02/22 03:35 Chloride 103 mmol/L (98-107) 01/02/22 03:35 Carbon Dioxide 27 mmol/L (22-29) 01/02/22 03:35 Anion Gap 16.2 (5-19) 01/02/22 03:35 BUN 11 mg/dL (8-23) 01/02/22 03:35 Creatinine 0.9 mg/dL (0.5-0.9) 01/02/22 03:35 GFR Calculation Not Reportable 01/02/22 03:35 Glucose 151 mg/dL (65-115) H 01/02/22 03:35 Calculated Osmolality 296 mOsm/kg (285-295) H 01/02/22 03:35 Calcium 9.3 mg/dL (8.5-10.5) 01/02/22 03:35 Total Bilirubin 1.3 mg/dL (0.15-1.2) H 01/02/22 03:35 AST 135 U/L (0-32) H 01/02/22 03:35 ALT 56 U/L (0-33) H 01/02/22 03:35 Alkaline Phosphatase 147 IU/L (35-105) H 01/02/22 03:35 Troponin T Baseline 25 ng/L (0-10) H 01/02/22 03:35 Troponin T 120 Minute 19.01 ng/L (0-10) H 01/02/22 05:35 Delta Troponin T -5.99 ABS# (0-10) L 01/02/22 05:35 Troponin T Hi Sens 6Hr 20.48 ng/L (0-10) H 01/02/22 09:35 Troponin T Hi Sens 6Hr Delta -4.52 ng/L (0-12) L 01/02/22 09:35 NT-Pro-B Natriuret Pep 2764 pg/mL (0-450) H 01/02/22 03:35 Total Protein 6.8 g/dL (6.6-8.7) 01/02/22 03:35 Albumin 4.0 g/dL (3.5-5.2) 01/02/22 03:35 Globulin 2.8 g/dL (1.3-4.6) 01/02/22 03:35 Lipase 2681 U/L (13-60) H 01/02/22 03:35 Urine Color Yellow (Yellow) 01/02/22 04:30 Urine Appearance Clear (CLEAR) 01/02/22 04:30 Urine pH 6 (5-7) 01/02/22 04:30 Ur Specific [place] 1.020 (1.005-1.030) 01/02/22 04:30 Urine Protein Trace (Negative) 01/02/22 04:30 Urine Glucose (UA) Norm (Normal) 01/02/22 04:30 Urine Ketones Negative (Negative) 01/02/22 04:30 Urine Blood Neg (Negative) 01/02/22 04:30 Urine Nitrate Negative (Negative) 01/02/22 04:30 Urine Bilirubin Neg (Negative) 01/02/22 04:30 Urine Urobilinogen 1 mg/dL (Negative) H 01/02/22 04:30 Ur Leukocyte Esterase Trace (Negative) H 01/02/22 04:30 Urine RBC 0-4 /hpf (0-2) H 01/02/22 04:30 Urine WBC 0-4 /hpf (0-5) H 01/02/22 04:30 Ur Squamous Epith Cells 0-4 /hpf (0-5) H 01/02/22 04:30 Amorphous Sediment Not Reportable 01/02/22 04:30 Urine Bacteria Trace /hpf (NONE) 01/02/22 04:30 EKG Data EKG 1: I personally reviewed and interpreted this EKG as follows: EKG interpretation date: 01/30/22 EKG interpretation time: 03:57 Interpretation: Twelve-lead EKG shows a irregular rhythm at a rate of 76. No CT interval, QRS duration 95, QTc 450. Normal axis. Interpretation: Atrial fibrillation. Nonspecific ST segment abnormalities EKG 2: I personally reviewed and interpreted this EKG as follows: EKG interpretation date: 01/30/22 EKG interpretation time: 05:45 Interpretation: Twelve-lead EKG shows an irregular rhythm at a rate of 73. No CT interval, QRS duration 85, QTc 433. Normal axis. Interpretation: Atrial fibrillation. Nonspecific ST segment abnormalities Discharge Plan Discharge Patient Disposition: Xfer Short-Term Hosp Clinical Impression: Choledocholithiasis with acute cholecystitis, Abdominal pain, Acute gallstone pancreatitis Condition: Stable Referrals: Malik Weathers MD [Primary Care Provider] - Patient Instructions: Abdominal Pain (ED) Coding Level of Care Code ED Loom Overhauler for Chg Fwd Exam Comprehensive Documented by User: Catrina Spaulding MD 01/02/22 09:20 HPI - Abdominal Pain General: Chief Complaint: Abdominal Pain Stated Complaint: abd pain Time Seen by Provider: 01/02/22 03:45 PFSH ED PFSH: Medical History Anemia Arteriosclerotic coronary artery disease Cardiomegaly Cholelithiasis Colon cancer 2007 Congestive heart failure COPD (chronic obstructive pulmonary disease) 2L NC continuous use Coronary artery disease Dyslipidemia Dyspnea Family history of [place] (myocardial infarction) Pulmonary fibrosis Sleep apnea Spleen laceration Ventral hernia Surgical History History of hemicolectomy Right 2006 History of PTCA Hx of bilateral cataract extraction Hx of colonoscopy 06/2019 -- no abnormalities (ileocolic anastomosis) Hx of esophagogastroduodenoscopy 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 Family History Brother Cancer Sister Cancer Other CAD (coronary artery disease) Social History Smoking and tobacco status: former smoker (40+ years ago) Alcohol intake: former Previous occupational history: Retired [employer] Vital Signs: Vital signs: Vital Signs Temperature 98.2 F 01/02/22 03:45 Pulse Rate 75 01/02/22 16:36 Respiratory Rate 16 01/02/22 16:36 Blood Pressure 158/86 01/02/22 15:03 Pulse Oximetry 99 01/02/22 16:36 MDM - Abdominal Pain Medical Decision Making Case was discussed with Dr. Mckeon who agreed with the transfer to [facility] for management of choledocholithiasis. Disposition: Transfer to outside hospital Lab Data : 01/02/22 03:35 01/02/22 03:35 Labs/Radiology: Radiology Impressions Abdomen/Pelvis CT 01/02/22 03:55 IMPRESSION: 1. Cholelithiasis with questionable cholecystitis. 2. 7 mm stone in the distal common bile duct with mild ductal dilation. 3. Small amount of gas in the urinary bladder which may be secondary to recent manipulation or infection. 4. Diverticulosis without diverticulitis. 5. Age indeterminate compression deformities at L2 and T12. COMMENTS: Consistent with the [employer]'s Incidental Findings Committee white paper (J Am Chepe Radiol 2018): Any incidental renal lesion less than 1 cm or classified as too small to characterize, or any incidental cystic renal lesion characterized as simple-appearing, is likely benign. No follow-up imaging is recommended for these lesions per consensus recommendations based on imaging criteria. Chest X-Ray 01/02/22 03:55 IMPRESSION: 1. Mild cardiomegaly. 2. Stable changes of pulmonary fibrosis. 3. No acute infiltrate. Laboratory Results WBC 8.5 10^3/uL (4.0-10.0) 01/02/22 03:35 RBC 3.39 10^6/uL (4.1-5.3) L 01/02/22 03:35 Hgb 9.9 g/dL (11.5-15.3) L 01/02/22 03:35 Hct 32.8 % (37.0-47.0) L 01/02/22 03:35 MCV 96.8 fl (81-99) 01/02/22 03:35 MCH 29.2 pg (28.0-34.0) 01/02/22 03:35 MCHC 30.2 g/dL (30.0-36.0) 01/02/22 03:35 RDW 13.3 % (12.1-15.1) 01/02/22 03:35 Plt Count 252 10^3/cmm (130-400) 01/02/22 03:35 MPV 10.2 fL (7.4-10.4) 01/02/22 03:35 Neut % (Auto) 67.1 % 01/02/22 03:35 Lymph % (Auto) 21.8 % 01/02/22 03:35 [place] % (Auto) 7.6 % 01/02/22 03:35 Eos % (Auto) 2.7 % 01/02/22 03:35 Baso % (Auto) 0.4 % 01/02/22 03:35 Neut # (Auto) 5.68 10^3/uL (1.8-7.7) 01/02/22 03:35 Lymph # (Auto) 1.8 10^3/uL (0.8-4.8) 01/02/22 03:35 [place]gs # (Auto) 0.6 10^3/uL (0.2-0.9) 01/02/22 03:35 Eos # (Auto) 0.2 10^3/uL (0.0-0.8) 01/02/22 03:35 Baso # (Auto) 0.0 10^3/uL (0.0-0.1) 01/02/22 03:35 Nucleated RBC % (auto) 0 % 01/02/22 03:35 Nucleated RBCs # 0.0 /100WBC 01/02/22 03:35 Sodium 142 mmol/L (136-145) 01/02/22 03:35 Potassium 4.2 mmol/L (3.5-5.1) 01/02/22 03:35 Chloride 103 mmol/L (98-107) 01/02/22 03:35 Carbon Dioxide 27 mmol/L (22-29) 01/02/22 03:35 Anion Gap 16.2 (5-19) 01/02/22 03:35 BUN 11 mg/dL (8-23) 01/02/22 03:35 Creatinine 0.9 mg/dL (0.5-0.9) 01/02/22 03:35 GFR Calculation Not Reportable 01/02/22 03:35 Glucose 151 mg/dL (65-115) H 01/02/22 03:35 Calculated Osmolality 296 mOsm/kg (285-295) H 01/02/22 03:35 Calcium 9.3 mg/dL (8.5-10.5) 01/02/22 03:35 Total Bilirubin 1.3 mg/dL (0.15-1.2) H 01/02/22 03:35 AST 135 U/L (0-32) H 01/02/22 03:35 ALT 56 U/L (0-33) H 01/02/22 03:35 Alkaline Phosphatase 147 IU/L (35-105) H 01/02/22 03:35 Troponin T Baseline 25 ng/L (0-10) H 01/02/22 03:35 Troponin T 120 Minute 19.01 ng/L (0-10) H 01/02/22 05:35 Delta Troponin T -5.99 ABS# (0-10) L 01/02/22 05:35 Troponin T Hi Sens 6Hr 20.48 ng/L (0-10) H 01/02/22 09:35 Troponin T Hi Sens 6Hr Delta -4.52 ng/L (0-12) L 01/02/22 09:35 NT-Pro-B Natriuret Pep 2764 pg/mL (0-450) H 01/02/22 03:35 Total Protein 6.8 g/dL (6.6-8.7) 01/02/22 03:35 Albumin 4.0 g/dL (3.5-5.2) 01/02/22 03:35 Globulin 2.8 g/dL (1.3-4.6) 01/02/22 03:35 Lipase 2681 U/L (13-60) H 01/02/22 03:35 Urine Color Yellow (Yellow) 01/02/22 04:30 Urine Appearance Clear (CLEAR) 01/02/22 04:30 Urine pH 6 (5-7) 01/02/22 04:30 Ur Specific [place] 1.020 (1.005-1.030) 01/02/22 04:30 Urine Protein Trace (Negative) 01/02/22 04:30 Urine Glucose (UA) Norm (Normal) 01/02/22 04:30 Urine Ketones Negative (Negative) 01/02/22 04:30 Urine Blood Neg (Negative) 01/02/22 04:30 Urine Nitrate Negative (Negative) 01/02/22 04:30 Urine Bilirubin Neg (Negative) 01/02/22 04:30 Urine Urobilinogen 1 mg/dL (Negative) H 01/02/22 04:30 Ur Leukocyte Esterase Trace (Negative) H 01/02/22 04:30 Urine RBC 0-4 /hpf (0-2) H 01/02/22 04:30 Urine WBC 0-4 /hpf (0-5) H 01/02/22 04:30 Ur Squamous Epith Cells 0-4 /hpf (0-5) H 01/02/22 04:30 Amorphous Sediment Not Reportable 01/02/22 04:30 Urine Bacteria Trace /hpf (NONE) 01/02/22 04:30 Discharge Plan Discharge Patient Disposition: Xfer Short-Term Hosp Clinical Impression: Choledocholithiasis with acute cholecystitis, Abdominal pain, Acute gallstone pancreatitis Condition: Stable Referrals: Malik Weathers MD [Primary Care Provider] - Patient Instructions: Abdominal Pain (ED) Coding Level of Care Code ED Loom Overhauler for Chg Fwd Exam Comprehensive
--- NOTE | 2022-01-02 03:50 | ECG_ITS ---
[facility] Test Date: 2022-01-02 Pat Name: Shankar Cam Department: Room: Gender: Female Finisher Hand: : 1940 Requested By: Fidel Bond Order Number: [id number] Alex MD: Wanda Veliz M.D. Measurements Intervals [place] Rate: 76 P: CT: QRS: 9 QRSD: 95 T: -4 QT: 419 QTc: 473 Interpretive Statements ATRIAL FIBRILLATION NONSPECIFIC ST & T-WAVE ABNORMALITY ABNORMAL RHYTHM ECG Compared to ECG 06/02/2021 15:01:36 Possible ischemia no longer present T-wave abnormality still present Electronically Signed On 01-02-2022 13:42:09 EMAIL ADMINISTRATOR by Wanda Veliz M.D. [email or web address]/OV/[id number]
--- NOTE | 2022-01-02 03:55 | XRR_ITS ---
PROCEDURE INFORMATION: Exam: XR Chest Exam date and time: 01/02/2022 3:55 AM Age: 81 years old Clinical indication: Pain; Chest pressure; Prior surgery; Surgery type: Cabg; Patient HX: C/O chest discomfort. History of copd, pulmonary fibrosis, and chf. TECHNIQUE: Imaging protocol: XR of the chest. Views: 1 view. COMPARISON: CR XR chest 1V portable [id number] 06/02/2021 12:57 AM FINDINGS: Lungs: Stable changes of pulmonary fibrosis. No acute infiltrate. Pleural spaces: Unremarkable. No pleural effusion. No pneumothorax. Heart/Mediastinum: There is mild cardiomegaly. Bones/joints: There has been a median sternotomy. XR/XR chest 1V portable [id number] IMPRESSION: 1. Mild cardiomegaly. 2. Stable changes of pulmonary fibrosis. 3. No acute infiltrate.
--- NOTE | 2022-01-02 03:55 | CTR_ITS ---
PROCEDURE INFORMATION: Exam: CT Abdomen And Pelvis With Contrast Exam date and time: 01/02/2022 3:55 AM Age: 81 years old Clinical indication: Abdominal pain; Generalized; Prior surgery; Surgery type: Cabg. Hemicoloectomy. ; Patient HX: C/O diffuse abd pain. History of colon cancer. ; Additional info: Generalized abdominal pain TECHNIQUE: Imaging protocol: Computed tomography of the abdomen and pelvis with contrast. Radiation optimization: All CT scans at this facility use at least one of these dose optimization techniques: automated exposure control; mA and/or kV adjustment per patient size (includes targeted exams where dose is matched to clinical indication); or iterative reconstruction. Contrast material: OMNI 300; Contrast volume: 95 ml; Contrast route: INTRAVENOUS (IV); COMPARISON: CT angio chest w abd pel w con 06/02/2021 2:27 AM RADIATION DOSE METRICS: Total DLP (mGy-cm): 1202.69 FINDINGS: Lungs: Stable fibrotic changes at the lung bases. Heart: There is mild cardiomegaly. Liver: Normal. No mass. Gallbladder and bile ducts: There are multiple gallstones with gallbladder distension and questionable pericholecystic fluid. 7 mm stone in the distal common bile duct with mild ductal dilation. Pancreas: Normal. No ductal dilation. Spleen: There are multiple calcified splenic granulomata . Adrenal glands: Normal. No mass. Kidneys and ureters: There is left renal scarring. 1.2 cm right renal cyst. Stomach and bowel: Diverticulosis without diverticulitis. There has been a right hemicolectomy. Appendix: Appendix has been removed. Intraperitoneal space: Unremarkable. No free air. No significant fluid collection. Vasculature: There is mild atherosclerotic disease. Lymph nodes: Unremarkable. No enlarged lymph nodes. Urinary bladder: Small amount of gas in the urinary bladder which may be secondary to recent manipulation or infection. Reproductive: Unremarkable as visualized. Bones/joints: Age indeterminate compression deformities at L2 and T12. There has been a median sternotomy. Soft tissues: Unremarkable. CT/CT abdomen pelvis w con* [id number] IMPRESSION: 1. Cholelithiasis with questionable cholecystitis. 2. 7 mm stone in the distal common bile duct with mild ductal dilation. 3. Small amount of gas in the urinary bladder which may be secondary to recent manipulation or infection. 4. Diverticulosis without diverticulitis. 5. Age indeterminate compression deformities at L2 and T12. COMMENTS: Consistent with the [employer]'s Incidental Findings Committee white paper (J Am Chepe Radiol 2018): Any incidental renal lesion less than 1 cm or classified as too small to characterize, or any incidental cystic renal lesion characterized as simple-appearing, is likely benign. No follow-up imaging is recommended for these lesions per consensus recommendations based on imaging criteria.
[2022-01-02] MEDS: morphine 4 mg/mL SDV 1 mL 2 MG IVP (04:03)
[2022-01-02 04:14] LABS: Basophils % 0.4 %; Eosinophils # 0.2 10^3/uL (0.0-0.8); Eosinophils % 2.7 %; Hematocrit 32.8 % (37.0-47.0); Hemoglobin 9.9 g/dL (11.5-15.3); Lymphocytes # 1.8 10^3/uL (0.8-4.8); Lymphocytes % 21.8 %; Mean Corpuscular HGB Conc 30.2 g/dL (30.0-36.0); Mean Corpuscular Hemoglobin 29.2 pg (28.0-34.0); Mean Corpuscular Volume 96.8 fl (81-99); Mean Platelet Volume 10.2 fL (7.4-10.4); Monocytes # 0.6 10^3/uL (0.2-0.9); Monocytes % 7.6 %; Neutrophils # 5.68 10^3/uL (1.8-7.7); Neutrophils % 67.1 %; Nucleated Red Blood Cells % 0 %; Platelet Count 252 10^3/cmm (130-400); Red Blood Count 3.39 10^6/uL (4.1-5.3); Red Cell Distribution Width 13.3 % (12.1-15.1); White Blood Count 8.5 10^3/uL (4.0-10.0)
[2022-01-02 04:33] LABS: Alanine Aminotransferase 56 U/L (0-33); Alkaline Phosphatase 147 IU/L (35-105); Anion Gap 16.2 (5-19); Aspartate Amino Transferase 135 U/L (0-32); Blood Urea Nitrogen 11 mg/dL (8-23); Calcium 9.3 mg/dL (8.5-10.5); Carbon Dioxide 27 mmol/L (22-29); Chloride 103 mmol/L (98-107); Globulin 2.8 g/dL (1.3-4.6); Glucose 151 mg/dL (65-115); Osmolality Calculated 296 mOsm/kg (285-295); Potassium 4.2 mmol/L (3.5-5.1); Sodium 142 mmol/L (136-145); Total Bilirubin 1.3 mg/dL (0.15-1.2); Total Protein 6.8 g/dL (6.6-8.7)
[2022-01-02 04:34] LABS: Troponin(5th) Baseline 25 ng/L (0-10)
[2022-01-02 04:43] LABS: NT Pro B Type Natriuretic Pept 2764 pg/mL (0-450)
[2022-01-02 04:49] LABS: Add Urine Culture? No; Add Urine Microscopic? YES; Bacteria Urine TRACE /hpf; Bilirubin Urine Neg (Negative); Blood Urine Neg (Negative); Glucose Urine UA Norm (Normal); Ketones Urine Negative (Negative); Leukocyte Esterase Urine Trace (Negative); Nitrate Urine Negative (Negative); Protein Urine Trace (Negative); RBC Urine 0-4 /hpf (0-2); Squamous Epithelial Cell Urine 0-4 /hpf (0-5); Urine Appearance Clear (CLEAR); Urine Color Yellow (Yellow); Urobilinogen Urine 1 mg/dL (Negative); WBC Urine 0-4 /hpf (0-5); pH Urine 6 (5-7)
[2022-01-02 04:51] LABS: Lipase 2681 U/L (13-60)
[2022-01-02] MEDS: iohexol 300 mg/mL 100 mL Btl IV (05:00)
--- NOTE | 2022-01-02 05:50 | ECG_ITS ---
[facility] Test Date: 2022-01-02 Pat Name: Shankar Cam Department: Room: Gender: Female Netting Weaver: : 1940 Requested By: Fidel Bond Order Number: [id number] Alex MD: Wanda Veliz M.D. Measurements Intervals [place] Rate: 73 P: CT: QRS: 5 QRSD: 85 T: -20 QT: 407 QTc: 450 Interpretive Statements ATRIAL FIBRILLATION POSSIBLE RIGHT VENTRICULAR CONDUCTION DELAY [RSR (QR) IN V1/V2] ST DEVIATION AND MODERATE T-WAVE ABNORMALITY, CONSIDER ANTERIOR ISCHEMIA [-0.1+ mV T-WAVE IN V3/V4] Compared to ECG 01/02/2022 03:56:56 Possible ischemia now present T-wave abnormality still present Electronically Signed On 01-02-2022 13:43:37 FOREST [employer]ACTICES FIELD COORDINATOR by Wanda Veliz M.D. [email or web address].[email or web address]/[id number]
[2022-01-02 06:03] LABS: Troponin 5 2HR 19.01 ng/L (0-10)
[2022-01-02 06:05] LABS: Troponin 5 2HR Delta -5.99 ABS# (0-10)
[2022-01-02] MEDS: piperacillin-tazobactam 4.5 GM in sodium chloride 0.9% (plus) 50 ML IV (06:38)
--- NOTE | 2022-01-02 09:31 | PC.NURSE ---
PATIENT UP IN ROOM TO USE BEDSIDE COMMODE. PATIENT AMBULATED INDEPENDENTLY.
[2022-01-02 10:02] LABS: Troponin 5 6HR 20.48 ng/L (0-10)
[2022-01-02 10:15] LABS: Troponin 5 6HR Delta -4.52 ng/L (0-12)
--- NOTE | 2022-01-02 12:18 | PC.NURSE ---
REPORT CALLED TO SUSAN
--- NOTE | 2022-01-02 15:17 | PC.NURSE ---
PATIENT UP IN ROOM TO USE COMMODE. PATIENT MADE COMFORTABLE IN BED AND GIVEN BLANKETS FOR WARMTH. NO FURTHER NEEDS AT THIS TIME.
== END 2022-01-02 16:37 | disposition short-term general hospital (02) ==
PROVIDERS: Emergency Medicine; Emergency Provider Emergency Medicine; PCP Family Medicine
DX: K80.42 Calculus of bile duct with acute cholecystitis without obstruction (principal); K85.10 Biliary acute pancreatitis without necrosis or infection; Z85.038 Personal history of other malignant neoplasm of large intestine; I50.9 Heart failure, unspecified; J44.9 Chronic obstructive pulmonary disease, unspecified; Z99.81 Dependence on supplemental oxygen; I25.10 Atherosclerotic heart disease of native coronary artery without angina pectoris; E78.5 Hyperlipidemia, unspecified; Z95.1 Presence of aortocoronary bypass graft; Z87.891 Personal history of nicotine dependence
CPT/HCPCS: 36415; 71045; 74177; 80053; 81001; 83690; 83880; 84484; 85025; 87040; 93005; 96365; 96375; 99285; J2270; J2543; Q9967

== ENCOUNTER → 2022-03-26 09:25 | Outpatient (BNVA) | payer MEDICARE, MEDICAID, SELFPAY | PROVIDERS: PCP Family Medicine; Visit Provider Nurse Practitioner Family | DX: I11.0 Hypertensive heart disease with heart failure (principal); I50.9 Heart failure, unspecified; I25.10 Atherosclerotic heart disease of native coronary artery without angina pectoris; I48.19 Other persistent atrial fibrillation; Z87.891 Personal history of nicotine dependence; Z95.1 Presence of aortocoronary bypass graft | CPT/HCPCS: 99214 ==

== ENCOUNTER 2022-05-30 15:52 | Emergency (ER) | payer MEDICARE, MEDICAID, SELFPAY ==
[2022-05-30 16:20] VITALS: BP 157/73; PULSE 68; RESP 16; TEMP 36.5; O2SAT 95; BMI 25.6
--- NOTE | 2022-05-30 17:07 | XRR_ITS ---
PROCEDURE INFORMATION: Exam: XR Chest Exam date and time: 05/30/2022 5:12 PM Age: 82 years old Clinical indication: Dyspnea TECHNIQUE: Imaging protocol: Radiologic exam of the chest. Views: 1 view. COMPARISON: CR XR chest 1V portable [id number] 01/02/2022 4:02 AM FINDINGS: Lungs: Stable nonspecific interstitial pattern bilaterally which could represent pulmonary vascular congestion and/or pulmonary fibrosis and/or pulmonary interstitial edema and/or interstitial pneumonia. Stable COPD . Pleural spaces: Unremarkable. No pleural effusion. No pneumothorax. Heart/Mediastinum: Unremarkable. No cardiomegaly. Vasculature: Calcification of the thoracic aorta and/or great vessels consistent with atherosclerotic vessel disease. Bones/joints: Stable sternotomy. XR/XR chest 1V portable [id number] IMPRESSION: 1. Stable nonspecific interstitial pattern bilaterally which could represent pulmonary vascular congestion and/or pulmonary fibrosis and/or pulmonary interstitial edema and/or interstitial pneumonia. 2. Stable COPD .
[2022-05-30 17:23] VITALS: BP 141/69; PULSE 73; RESP 18; O2SAT 100
[2022-05-30 17:43] LABS: Basophils % 0.5 %; Eosinophils # 0.2 10^3/uL (0.0-0.8); Eosinophils % 3.5 %; Hematocrit 31.1 % (37.0-47.0); Hemoglobin 9.4 g/dL (11.5-15.3); Lymphocytes # 1.7 10^3/uL (0.8-4.8); Lymphocytes % 28.9 %; Mean Corpuscular HGB Conc 30.2 g/dL (30.0-36.0); Mean Corpuscular Hemoglobin 29.4 pg (28.0-34.0); Mean Corpuscular Volume 97.2 fl (81-99); Mean Platelet Volume 9.5 fL (7.4-10.4); Monocytes # 0.6 10^3/uL (0.2-0.9); Monocytes % 9.3 %; Neutrophils # 3.44 10^3/uL (1.8-7.7); Neutrophils % 57.5 %; Nucleated Red Blood Cells % 0 %; Platelet Count 203 10^3/cmm (130-400); Red Cell Distribution Width 13.9 % (12.1-15.1)
--- NOTE | 2022-05-30 17:50 | W.ED.GENADLT ---
HPI - General Adult General: Chief complaint: Dizziness Stated complaint: extremity numbness Time Seen by Provider: 05/30/22 17:07 History of Present Illness: Patient is an 82-year-old female with a history of CAD, hypertension, pulmonary fibrosis chronically on 4L oxygen presenting to the emergency room for concerns of and dyspnea ad lightheadedness starting around 2pm. Patient tells me that earlier today, the city lost its power and patient's oxygen machine has not been working. Patient reports that she was feeling hot at home because the AC was not working and her oxygen was running low. In addition, patient tells me that she was mildly short of breath after oxygen machine has stopped working. Patient reported numbness in her hands b/l and felt lightheaded and said to come to the emergency room for further evaluation. On arrival, patient is placed back on 4L oxygen reports feeling symptomatically improved. Patient denies having any chest pain, shortness of breath, nausea/vomiting, diarrhea, melena hematochezia. Patient has no complaints. Onset: 2pm Duration:2 hrs Location: home Severity:moderate Associated symptoms: Reports dyspnea; Deny chest pain, nausea, rash, palpitations or vomiting Review of Systems Const: Denies: fever(s) or chills Eyes: Denies: change in vision ENMT: Denies: mouth pain Card: Denies: chest pain or palpitations Resp: Reports: dyspnea; Denies: non-productive cough GI: Denies: abdominal pain, nausea, vomiting or diarrhea : Denies: dysuria Musc: Denies: extremity pain Skin/Breast: Denies: rash or new lesions Neuro: Reports: other (+light-headedness, paresthesia in arms b/l); Denies: weakness in extremities Psych: Reports: other (Normal mood) Marvin/Lymph: Denies: easy bruising PFS ED PFSH: Medical History (Updated 05/30/22 @ 20:26 by Catrina Spaulding MD) Anemia Arteriosclerotic coronary artery disease Cardiomegaly Cholelithiasis Colon cancer 2006 Congestive heart failure COPD (chronic obstructive pulmonary disease) 2L NC continuous use Coronary artery disease Dyslipidemia Dyspnea Family history of [place] (myocardial infarction) Pulmonary fibrosis Pulmonary fibrosis Sleep apnea Spleen laceration Ventral hernia Surgical History History of hemicolectomy Right 2007 History of PTCA Hx of bilateral cataract extraction Hx of colonoscopy 06/2019 -- no abnormalities (ileocolic anastomosis) Hx of esophagogastroduodenoscopy 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 Family History Brother Cancer Sister Cancer Other CAD (coronary artery disease) Social History Smoking and tobacco status: former smoker (40+ years ago) Alcohol intake: former 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 Physical Exam Const: COMMON NORMALS: alert HENMT: COMMON NORMALS: atraumatic HEAD & SCALP: atraumatic MOUTH: moist mucous membranes not abnormal Eye: COMMON NORMALS: EOMs intact bilaterally and conjunctivae normal CONJUNCTIVA: Yes conjunctivae normal Neck/C-Spine: COMMON NORMALS: full ROM and supple Resp: COMMON NORMALS: normal respiratory effort OTHER: + Mild coarse breath sounds bilaterally Cardio: OTHER: +irregular irregular rhythm GI: COMMON NORMALS: Soft to palpation and non-tender PALPATION: Yes Soft to palpation Extremity: COMMON NORMALS: full ROM Neuro: SENSORIUM/ORIENTATION: Yes alert MOTOR EXAM: No Abnormal motor strength present and Other motor observations present (no focal motor deficits) Psych: COMMON NORMALS: speech normal SPEECH: Yes normal speech MOOD & AFFECT: Yes euthymic mood Course Vital Signs: Vital signs: Vital Signs Temperature 97.7 F 05/30/22 16:20 Pulse Rate 72 05/30/22 20:00 Respiratory Rate 19 H 05/30/22 20:00 Blood Pressure 164/81 05/30/22 20:00 Pulse Oximetry 98 05/30/22 20:00 MDM - General Adult Medical Decision Making 82-year-old female with a history of CAD, hypertension, pulmonary fibrosis chronically on 4L oxygen presenting to the emergency room for concerns of transient lightheadedness, shortness of breath, paresthesia in the arms. On physical exam, patient satting at 95% on 4 L oxygen. Patient feels symptomatically improved on getting to the hospital with before meals and oxygen. X-ray chest did not show any focal pathology that is new. Not suspect pneumonia as patient has a chronic history of interstitial fibrosis. Troponin x2 with delta less than 5. EKG is nonischemic. Patient has no complaints of lightheadedness, chest pain, shortness breath palpitation. Do not suspect ACS at this time. Patient received IVF in the ER. Patient has been able to tolerate p.o. has been able to ambulate without difficulty. Patient received oxygen tank to go home with for concerns of additional electric outage in town. Disposition: Discharge. Patient counseled regarding diagnostic impression, treatment plan. Patient given ED strict return precautions to return for continuation, worsening, or development of new symptoms. Instructed to f/u w/ PCP regarding symptoms today. Patient verbalized understanding. Lab Data : 05/30/22 17:39 05/30/22 17:39 Radiology Impressions Chest X-Ray 05/30/22 17:07 IMPRESSION: 1. Stable nonspecific interstitial pattern bilaterally which could represent pulmonary vascular congestion and/or pulmonary fibrosis and/or pulmonary interstitial edema and/or interstitial pneumonia. 2. Stable COPD . Laboratory Results WBC 6.0 10^3/uL (4.0-10.0) 05/30/22 17:39 RBC 3.20 10^6/uL (4.1-5.3) L 05/30/22 17:39 Hgb 9.4 g/dL (11.5-15.3) L 05/30/22 17:39 Hct 31.1 % (37.0-47.0) L 05/30/22 17:39 MCV 97.2 fl (81-99) 05/30/22 17:39 MCH 29.4 pg (28.0-34.0) 05/30/22 17: MCHC 30.2 g/dL (30.0-36.0) 05/30/22 17: RDW 13.9 % (12.1-15.1) 05/30/22 17:39 Plt Count 203 10^3/cmm (130-400) 05/30/22 17:39 MPV 9.5 fL (7.4-10.4) 05/30/22 17:39 Neut % (Auto) 57.5 % 05/30/22 17:39 Lymph % (Auto) 28.9 % 05/30/22 17:39 [place] % (Auto) 9.3 % 05/30/22 17:39 Eos % (Auto) 3.5 % 05/30/22 17:39 Baso % (Auto) 0.5 % 05/30/22 17:39 Neut # (Auto) 3.44 10^3/uL (1.8-7.7) 05/30/22 17:39 Lymph # (Auto) 1.7 10^3/uL (0.8-4.8) 05/30/22 17:39 [place] # (Auto) 0.6 10^3/uL (0.2-0.9) 05/30/22 17:39 Eos # (Auto) 0.2 10^3/uL (0.0-0.8) 05/30/22 17:39 Baso # (Auto) 0.0 10^3/uL (0.0-0.1) 05/30/22 17:39 Nucleated RBC % (auto) 0 % 05/30/22 17:39 Nucleated RBCs # 0.0 /100WBC 05/30/22 17:39 Sodium 140 mmol/L (136-145) 05/30/22 17:39 Potassium 5.0 mmol/L (3.5-5.1) 05/30/22 17:39 Chloride 102 mmol/L (98-107) 05/30/22 17:39 Carbon Dioxide 29 mmol/L (22-29) 05/30/22 17:39 Anion Gap 14.0 (5-19) 05/30/22 17:39 BUN 16 mg/dL (8-23) 05/30/22 17:39 Creatinine 1.1 mg/dL (0.5-0.9) H 05/30/22 17:39 GFR Calculation Not Reportable 05/30/22 17:39 Glucose 170 mg/dL (65-115) H 05/30/22 17:39 Calculated Osmolality 295 mOsm/kg (285-295) 05/30/22 17:39 Calcium 8.9 mg/dL (8.5-10.5) 05/30/22 17:39 Troponin T Baseline 15 ng/L (0-10) H 05/30/22 17:39 Troponin T 120 Minute 14.17 ng/L (0-10) H 05/30/22 19:23 Delta Troponin T -0.83 ABS# (0-10) L 05/30/22 19:23 Imaging Data Other Imaging: Radiologist's impression: Launch?[employer] [place] [address] XRay Report Signed Patient: Shankar Cam Unit #: [id number] : 1940 Age/Sex: 82 / F ADM Date: 05/30/22 Loc: ER Room/Bed: Attending Dr: Ordering Provider/Ordering MD: Catrina Spaulding MD Date of Service: 05/30/22 Procedure(s): XR chest 1V portable [id number] Accession Number(s): [id number] Report Number: [id number] PROCEDURE INFORMATION: Exam: XR Chest Exam date and time: 05/30/2022 5:12 PM Age: 82 years old Clinical indication: Dyspnea TECHNIQUE: Imaging protocol: Radiologic exam of the chest. Views: 1 view. COMPARISON: CR XR chest 1V portable [id number] 01/02/2022 4:02 AM FINDINGS: Lungs: Stable nonspecific interstitial pattern bilaterally which could represent pulmonary vascular congestion and/or pulmonary fibrosis and/or pulmonary interstitial edema and/or interstitial pneumonia. Stable COPD . Pleural spaces: Unremarkable. No pleural effusion. No pneumothorax. Heart/Mediastinum: Unremarkable. No cardiomegaly. Vasculature: Calcification of the thoracic aorta and/or great vessels consistent with atherosclerotic vessel disease. Bones/joints: Stable sternotomy. XR/XR chest 1V portable [id number] IMPRESSION: 1. Stable nonspecific interstitial pattern bilaterally which could represent pulmonary vascular congestion and/or pulmonary fibrosis and/or pulmonary interstitial edema and/or interstitial pneumonia. 2. Stable COPD . ? Dictated By: Brian Ribeiro MD Signed By: Brian Ribeiro MD Signed Date/Time: 05/30/221743 DD/ 11 Discharge Plan Discharge Patient Disposition: Home Clinical Impression: Light headedness, Dyspnea Condition: Stable Prescriptions: No Action pantoprazole 40 mg tablet,delayed release (DR/EC) 40 mg PO BID 0RF ascorbic acid (vitamin C) 500 mg tablet 500 mg PO DAILY 0RF ferrous gluconate 324 mg (38 mg iron) tablet 324 mg PO DAILY 0RF metoprolol succinate 25 mg tablet extended release 24 hr 37.5 mg PO DAILY@0800 Qty: 135 3RF tamsulosin 0.4 mg capsule 0.4 mg PO DAILY@0800 0RF atorvastatin 40 mg tablet 40 mg PO DAILY@0700 0RF levothyroxine 75 mcg tablet 75 mcg PO DAILY@0700 0RF duloxetine 30 mg Capsule,Delayed Release(Dr/Ec) 30 mg PO DAILY Qty: 30 0RF furosemide [Lasix] 40 mg tablet 20 mg PO QAM Qty: 30 0RF Women's 50+ Daily Form (gkb) 1 tab PO DAILY 0RF Discharge Orders: Discharge ED (Routine); Ordered 05/30/22 Ordered By: Catrina Spaulding Other Ambulatory Orders: DME: Oxygen (Order) Location: None Selected Ordered By: Catrina Spaulding Referrals: Malik Weathers MD [Primary Care Provider] - Discharge Diet: Advance as tolerated Discharge Activity: Increase activity as tolerated Patient Instructions: Dyspnea (ED) Activity Restrictions/Additional Instructions: Come back to the emergency room if your symptoms worsen, have any shortness of breath, chest pain, fever/chills, dehydration, inability tolerate food or drinks, any difficulty breathing, or any new or concerning complaints. Coding Level of Care Code ED Tax Form Preparer for Yolanda Forman Exam Comprehensive
--- NOTE | 2022-05-30 17:51 | ECG_ITS ---
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 Measurements Intervals [place] Rate: 73 P: TX: QRS: 9 QRSD: 86 T: 1 QT: 410 QTc: 452 Interpretive Statements ATRIAL FIBRILLATION Compared to ECG 01/02/2022 05:44:24 T-wave abnormality no longer present Possible ischemia no longer present Electronically Signed On 05-30-2022 22:00:22 CDT by Joshua Gilmore M.D. [id number]
[2022-05-30] MEDS: sodium chloride 0.9% 500 ML IV (18:15)
[2022-05-30 18:25] VITALS: BP 159/60; PULSE 67; RESP 16; O2SAT 100
[2022-05-30 18:34] LABS: Blood Urea Nitrogen 16 mg/dL (8-23); Calcium 8.9 mg/dL (8.5-10.5); Carbon Dioxide 29 mmol/L (22-29); Chloride 102 mmol/L (98-107); Glucose 170 mg/dL (65-115); Osmolality Calculated 295 mOsm/kg (285-295); Sodium 140 mmol/L (136-145)
[2022-05-30 18:58] LABS: Troponin(5th) Baseline 15 ng/L (0-10)
--- NOTE | 2022-05-30 18:59 | PC.NURSE ---
Report to OMI Xie
--- NOTE | 2022-05-30 19:51 | ECG_ITS ---
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 Measurements Intervals [place] Rate: 68 P: SC: QRS: 12 QRSD: 88 T: 10 QT: 423 QTc: 450 Interpretive Statements ATRIAL FIBRILLATION LOW QRS VOLTAGE IN PRECORDIAL LEADS [QRS DEFLECTION < 1.0 mV IN CHEST LEADS] Compared to ECG 05/30/2022 18:05:12 Low QRS voltage now present Electronically Signed On 05-30-2022 22:00:44 CDT by Joshua Gilmore M.D. [id number]
[2022-05-30 19:52] LABS: Troponin 5 2HR 14.17 ng/L (0-10)
[2022-05-30 19:56] LABS: Troponin 5 2HR Delta -0.83 ABS# (0-10)
[2022-05-30 20:00] VITALS: BP 164/81; PULSE 72; RESP 19; O2SAT 98
[2022-05-30 20:49] VITALS: BP 164/81; PULSE 72; RESP 19; O2SAT 98
== END 2022-05-30 20:51 | disposition home or self-care (01) ==
PROVIDERS: Emergency Provider Emergency Medicine; PCP Family Medicine
DX: R42 Dizziness and giddiness (principal); R06.00 Dyspnea, unspecified; Z85.038 Personal history of other malignant neoplasm of large intestine; I11.0 Hypertensive heart disease with heart failure; I50.9 Heart failure, unspecified; J44.9 Chronic obstructive pulmonary disease, unspecified; Z99.81 Dependence on supplemental oxygen; I25.10 Atherosclerotic heart disease of native coronary artery without angina pectoris; E78.5 Hyperlipidemia, unspecified; Z95.1 Presence of aortocoronary bypass graft; Z87.891 Personal history of nicotine dependence
CPT/HCPCS: 71045; 80048; 84484; 85025; 93005; 96360; 99285; J7040

== ENCOUNTER → 2022-10-08 12:46 | Outpatient (BNVA) | payer MEDICARE, MEDICAID, SELFPAY | PROVIDERS: PCP Family Medicine; Visit Provider Internal Medicine Cardiovascular Disease | DX: I48.19 Other persistent atrial fibrillation (principal); I25.10 Atherosclerotic heart disease of native coronary artery without angina pectoris; Z95.1 Presence of aortocoronary bypass graft; I25.2 Old myocardial infarction; I11.0 Hypertensive heart disease with heart failure; I50.9 Heart failure, unspecified; Z87.891 Personal history of nicotine dependence | CPT/HCPCS: 99214 ==

== ENCOUNTER → 2023-04-08 10:19 | Outpatient (BNVA) | payer MEDICARE, MEDICAID, SELFPAY | PROVIDERS: PCP Family Medicine; Visit Provider Internal Medicine Cardiovascular Disease | DX: I11.0 Hypertensive heart disease with heart failure (principal); I50.9 Heart failure, unspecified; I48.19 Other persistent atrial fibrillation; I25.10 Atherosclerotic heart disease of native coronary artery without angina pectoris; Z87.891 Personal history of nicotine dependence | CPT/HCPCS: 99214 ==

== ENCOUNTER 2023-07-28 10:51 | Emergency (ER) | payer MEDICARE, MEDICAID, SELFPAY ==
[2023-07-28] VITALS (20 sets, daily range): BP systolic 127–150; BP diastolic 54–110; PULSE 84; RESP 20; TEMP 36.8; O2SAT 91–100; BMI 29.4
--- NOTE | 2023-07-28 11:21 | CT_ITS ---
WS: [id number] CT LUMBAR SPINE TECHNIQUE: Noncontrast CT of the lumbar spine with coronal and sagittal reformatted images. CLINICAL INFORMATION: increase lower back pain COMPARISON: MRI [address] abdomen pelvis 2021 DLP: 713.[address] scans at [facility] use at least one of these dose optimization techniques: automated e xposure control; mA and/or kV adjustment per patient size (includes targeted exams where dose is matc hed to clinical indication); or iterative reconstruction. FINDINGS: L5 is partially sacralized. Mild lumbar curve. Osteopenia. Slight anterolisthesis L4 on L5. Compressi on fracture inferior endplate L2 similar to the MRI 2020. Biconcave compression at T12 unchanged sin ce 01/02/2022. No new compression fractures in the lumbar spine. L1-L2: Mild disc bulging with osteophytic ridging. Mild LEFT foraminal narrowing. Moderate facet arth ropathy. L2-L3: Mild disc bulging with moderate central canal stenosis. Narrowing of the subarticular recess. Moderate facet arthropathy. Mild LEFT greater than RIGHT foraminal narrowing. Moderate facet arthropa thy and ligamentum flavum hypertrophy. L3-L4: Mild annular bulging with moderate central canal stenosis appears progressed compared to the p rior MRI. Moderate facet arthropathy ligamentum flavum hypertrophy. L4-L5: Grade 1 anterolisthesis L4 on L5 with moderate central canal stenosis appears progressed marco red to the prior MRI. Ligamentum flavum hypertrophy. Mild bilateral foraminal narrowing. Advanced fac et arthropathy. L5-S1: L5 is partially sacralized. Slight contact of the traversing S1 nerve roots. Moderate facet ar thropathy. Splenic artery calcification. Adrenal glands are normal. Spinal granulomas. IMPRESSION: 1. Stable compression fractures at T12 and L2. 2. No new compression fractures. 3. Osteopenia. 4. Slight anterolisthesis L4 on L5 is stable. 5. Progressed moderate central canal stenosis at L2-L3 L3-L4 and L4-L5 worse at L4-L5 compared to th e prior MRI 2020. This could be followed up with MRI lumbar spine. 6. Advanced facet arthropathy L3-L4 and L4-L5. 7. L5 is partially sacralized. 8. Evidence of chronic sacral insufficiency fractures. Sacrum can be further evaluated with MRI to a ssess for acute edema.
--- NOTE | 2023-07-28 11:23 | ED_ITS ---
HPI - Back Pain/Injury General: Chief Complaint: Back Pain/Injury Stated Complaint: back pain Time Seen by Provider: 07/28/23 10:53 History of Present Illness: 83-year-old female presents emergency room with increased lower back pain within the past 3 to 4 days. Patient further reviews having back injury few months ago and was told she has some fracture of lower back. Patient reveals increased pain today and described the pain as sharp sensation with severity of 8 out of 10. Patient has any dysuria, hematuria urine frequency. No bowel or bladder dysfunction. Denies any eliciting with the lower extremity. No new injury or fall. After reviewing past medical history patient had x-ray done of lower extremity that shows severe fracture of lumbar and thoracic fracture. Associated symptoms: Deny abdominal pain, chills, difficulty walking, dysuria, fatigue, fever(s), nausea, urinary urgency or vomiting Review of Systems Const: Denies: fever(s), chills, body aches, change in appetite, change in weight, fatigue or malaise Resp: Denies: dyspnea or productive cough GI: Denies: abdominal pain, nausea, vomiting or hematemesis : Denies: flank pain, difficulty voiding, dysuria, urinary frequency, urinary urgency, urinary hesitancy, dribbling or nocturia Musc: Reports: back pain; Denies: neck pain, extremity pain, extremity swelling, joint pain, joint swelling, joint redness, joint warmth or joint stiffness Neuro: Denies: headache(s), numbness in extremities, weakness in extremities, sensory changes, lack of coordination, difficulty walking, frequent falls, dizziness, vertigo, confusion, behavioral changes, Slurred speech present or difficulty communicating thoughts [facility] ED PFSH: Medical History Anemia Arteriosclerotic coronary artery disease Cardiomegaly Cholelithiasis Colon cancer 2007 Congestive heart failure COPD (chronic obstructive pulmonary disease) 2L NC continuous use Coronary artery disease Dyslipidemia Dyspnea Family history of [place] (myocardial infarction) Pulmonary fibrosis Pulmonary fibrosis Sleep apnea Spleen laceration Ventral hernia Surgical History History of hemicolectomy Right 2006 History of PTCA Hx of bilateral cataract extraction Hx of colonoscopy 06/2019 -- no abnormalities (ileocolic anastomosis) Hx of esophagogastroduodenoscopy S/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 2008 Family History Brother Cancer Sister Cancer Other CAD (coronary artery disease) Social History Smoking and tobacco status: former smoker (40+ years ago) Alcohol intake: former Substance/Drug Use: never 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 Physical Exam Const: COMMON NORMALS: no acute distress, average body habitus, patient or iented x3, no limitations, healthy appearing, alert and well nourished HENMT: COMMON NORMALS: normocephalic, atraumatic, hearing grossly normal bi laterally, external ears normal, EAC's normal, TM's normal bilaterally, Normal external nose present, Normal nasal mucous membranes and turbinates present, moist oral mucous membranes, oropharynx normal, dentition normal and gingiva normal HEAD & SCALP: normocephalic and atraumatic NOSE: Normal external nose present and Normal nasal mucous membranes and turbinates present EXTERNAL EAR: Yes external ears normal EXTERNAL AUDITORY CANAL: EAC's normal TYMPANIC MEMBRANE: TM's normal bilaterally Neck/C-Spine: COMMON NORMALS: no JVD Chest: COMMONS NORMALS: normal inspection of the chest, normal palpation of entire chest wall, normal inspection of the breasts and normal palpation of the breasts Breast/axilla inspection: Yes normal inspection of the breasts BREAST/AXILLA PALPATION: Yes normal palpation of the breasts Resp: COMMON NORMALS: normal respiratory effort, No retractions, No use of accessory muscles, clear to auscultation bilaterally and percussion normal AUSCULTATION: clear to auscultation bilaterally PERCUSSION: percussion normal Cardio: COMMON NORMALS: no JVD, regular rate, regular rhythm, S1 normal heart sound present, S2 normal heart sound present, No gallops present (Cardio), No clicks present (Cardio), No murmurs present (Cardio), No rub (Cardio) and Peripheral pulses 2+ throughout RATE: regular rate RHYTHM: regular rhythm HEART SOUNDS: S1 normal heart sound present and S2 normal heart sound present PERIPHERAL PULSES: Peripheral pulses 2+ throughout GI: COMMON NORMALS: Normal to inspection, nondistended, normoactive bowel sounds present, Soft to palpation, non-tender, No hepatosplenomegaly present, no masses and no bruits PALPATION: Yes Soft to palpation and Yes No hepatosplenomegaly present : BLADDER/KIDNEY EXAM: No CVA tenderness Back/Pelvis: GENERAL BACK: No CVA tenderness, No mass, No erythema and No warmth LUMBAR SPINE/LOWER BACK: Yes lumbar ROM normal, No pain with ROM, Yes lumbar spinal tenderness (Lower lumbar tenderness upon palpation) Lumbar spinal tenderness location: L3, L4 and L5, No paraspinal muscle tenderness, No paraspinal muscle spasm, No mass present, No straight leg raise negative bilaterally, No straight leg raise positive right and No straight leg raise positive left PELVIS: Yes buttocks normal and Yes no pain with anterior- posterior compression Neuro: COMMON NORMALS: patient oriented x3 SENSORIUM/ORIENTATION: Yes alert Course Vital Signs: Vital signs: Vital Signs Temperature 98.3 F 07/28/23 11:17 Pulse Rate 84 07/28/23 11:17 Respiratory Rate 20 H 07/28/23 11:17 Blood Pressure 150/92 07/28/23 12:20 Pulse Oximetry 100 07/28/23 12:20 Oxygen Delivery Me thod Nasal Cannula 07/28/23 11:17 Oxygen Flow Rate 2 07/28/23 11:17 MDM - Back Pain/Injury Medical Decision Making Patient was made comfortable emergency room. Patient was given IM pain medication and lumbar CT obtained. I discussed the CT finding with the patient. Patient was reassured and close follow-up PCP recommended for further evaluation and treatment. Differential Diagnosis Likely lumbar radiculopathy, strain of lumbar region, pyelonephritis, thoracic back pain and discitis XR interpretation done by ED provider, pending radiology final review Discharge Plan Discharge Patient Disposition: Home Clinical Impression: Closed compression fracture of thoracic vertebra, Compression fracture Condition: Stable Prescriptions: New hydrocodone-acetaminophen 5-325 mg tablet 1 tab PO Q12H PRN (Reason: pain) Qty: 20 0RF No Action ascorbic acid (vitamin C) 500 mg tablet 500 mg PO DAILY ferrous gluconate 324 mg (38 mg iron) tablet 324 mg PO DAILY pantoprazole 40 mg tablet,delayed release (DR/EC) 40 mg PO DAILY metoprolol succinate 25 mg tablet extended release 24 hr 37.5 mg PO DAILY@0800 Qty: 135 3RF tamsulosin 0.4 mg capsule 0.4 mg PO DAILY@0800 atorvastatin 40 mg tablet 40 mg PO DAILY@0700 levothyroxine 75 mcg tablet 75 mcg PO DAILY@0700 duloxetine 30 mg Capsule,Delayed Release(Dr/Ec) 30 mg PO DAILY Qty: 30 0RF Women's 50+ Daily Form (gkb) 1 tab PO DAILY hydrocodone-acetaminophen 5-325 mg Tablet 1 tab PO Q6H PRN (Reason: Pain) furosemide 20 mg tablet 20 mg PO DAILY Discharge Orders: Discharge ED (Routine); Ordered 07/28/23 Ordered By: Fausto Song Referrals: Malik Weathers MD [Primary Care Provider] - Discharge Diet: Advance as tolerated Discharge Activity: Resume usual activity Patient Instructions: Opioid Safety, Pain Management Coding Level of Care Code ED Cat Scan Technologist for Yolanda Forman
[2023-07-28] MEDS: ketorolac 30 mg/mL INJ IM (11:54)
== END 2023-07-28 13:16 | disposition home or self-care (01) ==
PROVIDERS: Emergency Provider Family Medicine; PCP Family Medicine
DX: S22.080A Wedge compression fracture of T11-T12 vertebra, initial encounter for closed fracture (principal); S32.020A Wedge compression fracture of second lumbar vertebra, initial encounter for closed fracture; I25.10 Atherosclerotic heart disease of native coronary artery without angina pectoris; Z85.038 Personal history of other malignant neoplasm of large intestine; I50.9 Heart failure, unspecified; J44.9 Chronic obstructive pulmonary disease, unspecified; E78.5 Hyperlipidemia, unspecified; Z95.1 Presence of aortocoronary bypass graft; Z87.891 Personal history of nicotine dependence; X58.XXXA Exposure to other specified factors, initial encounter
CPT/HCPCS: 72131; 96372; 99284; J1885

== ENCOUNTER → 2023-10-07 10:07 | Outpatient (BNVA) | payer MEDICARE, MEDICAID, SELFPAY | PROVIDERS: PCP Family Medicine; Visit Provider Internal Medicine Cardiovascular Disease | DX: I11.9 Hypertensive heart disease without heart failure (principal); I50.9 Heart failure, unspecified; I48.19 Other persistent atrial fibrillation; I25.10 Atherosclerotic heart disease of native coronary artery without angina pectoris; Z87.891 Personal history of nicotine dependence | CPT/HCPCS: 99214 ==

== ENCOUNTER → 2024-03-23 13:53 | Outpatient (BNVA) | payer MEDICARE, MEDICAID, SELFPAY | PROVIDERS: PCP Family Medicine; Visit Provider Internal Medicine | DX: I11.0 Hypertensive heart disease with heart failure (principal); I50.9 Heart failure, unspecified; I48.19 Other persistent atrial fibrillation; I25.10 Atherosclerotic heart disease of native coronary artery without angina pectoris; Z87.891 Personal history of nicotine dependence; Z95.1 Presence of aortocoronary bypass graft | CPT/HCPCS: 99214 ==

== ENCOUNTER → 2025-01-30 11:57 | Outpatient (BNVA) | payer MEDICARE, MEDICAID, SELFPAY | PROVIDERS: PCP Family Medicine; Visit Provider Internal Medicine | DX: I10 Essential (primary) hypertension (principal); I48.19 Other persistent atrial fibrillation; I50.9 Heart failure, unspecified; I25.10 Atherosclerotic heart disease of native coronary artery without angina pectoris | CPT/HCPCS: 99213 ==

== ENCOUNTER 2025-07-26 15:35 | Inpatient (IN) | payer MEDICARE, MEDICAID, SELFPAY ==
[2025-07-26] VITALS (45 sets, daily range): BP systolic 76–119; BP diastolic 53–67; PULSE 71–117; RESP 13–45; TEMP 36.4–37.7; O2SAT 86–97; BMI 26.3
--- NOTE | 2025-07-26 15:40 | XR_ITS ---
WS: [id number] XR chest 1V portable [id number] REASON FOR EXAM: Possible Sepsis FINDINGS: The chest is unchanged compared to previous examination of 05/30/2022. There are sternal sutures. Mild tortuosity of the thoracic aorta with dense calcification of the aortic arch. Mild cardiomegaly. Central pulmonary arteries appear prominent. There are chronic coarse reticular opacities in both lungs which predominate in the periphery of the lung merino. There are lucent areas within the opacities. There does not appear to be an acute pulmonary parenchymal or pleural abnormality at this time. Compression deformities and degenerative spondylosis in the thoracic spine. 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 XR/XR chest 1V portable [id number] IMPRESSION: Stable presumed chronic interstitial lung disease. Mild cardiomegaly and promin ent central pulmonary arteries. No acute abnormality. CT scan of the chest 06/02/2021 demonstrates severe diffuse interstitial lung di sease with honeycombing, likely pulmonary fibrosis.
--- OUTSIDE RECORDS SUMMARY | 2025-07-26 15:42 | XMS_ITS | Clinical Summary ---
Author Organization [facility] Address [address] [place] [address] Phone Care Team Providers Care Cytology Technologist Name Role Phone Unavailable Primary Care Provider Unavailabl e Allergies No known active allergies Medications pantoprazole (PROTONIX) 40 mg Tablet, Delayed Release (E.C.) Take 40 mg by mouth 2 times daily. Active ascorbic acid, vitamin C, (VITAMIN C) 500 mg tablet Take 500 mg by mouth daily. Active ferrous gluconate 324 mg (38 mg iron) tablet Take 324 mg by mouth. Active metoprolol succinate (TOPROL XL) 25 mg Extended Release 24 hour tablet Take 25 mg by mouth daily. Active tamsulosin (FLOMAX) 0.4 mg capsule Take 0.4 mg by mouth daily. Active atorvastatin (LIPITOR) 40 mg tablet Take 40 mg by mouth daily. Active levothyroxine 75 mcg tablet Take 75 mcg by mouth daily in the morning. Active DULoxetine (CYMBALTA) 30 mg Capsule, Delayed Release(E.C.) Take 30 mg by mouth daily. Active furosemide (LASIX) 40 mg tablet Take 40 mg by mouth daily. Active HYDROcodone-acetami nophen (NORCO) 5-325 mg tabletIndications:S /P laparoscopic cholecystectomy Take 1 Tablet by mouth every 4 hours as needed for Pain, Moderate. Max Daily Amount: 6 Tablets 20 Tablet 2 Active ondansetron (ZOFRAN ODT) 4 mg Tablet, Rapid Dissolve Take 1 Tablet (4 mg) by mouth every 6 hours as needed for Nausea or Nausea/Emesi s. Dissolve tablet on top of tongue, then swallow with saliva. 10 Tablet 2 Active Active Problems Problem Noted Date Diagnosed Date Choledocholithiasis 01/03/2022 Cholelithiasis 01/03/2022 HTN (hypertension), benign 01/03/2022 HLD (hyperlipidemia) 01/03/2022 Chronic respiratory failure 01/03/2022 CAD (coronary atherosclerotic disease) CHF (congestive heart failure) 01/03/2022 Pulmonary fibrosis 01/03/2022 COPD (chronic obstructive pulmonary disease) History of colon cancer 01/03/2022 Family History Medical History Relation Name Comments Cancer Brother Heart Disease Brother Cancer Daughter Cancer Father Heart Disease Father Cancer Mother Heart Disease Mother Cancer Sister Heart Disease Sister Aneurysm Son 2 Relation Name Status Comments Brother Daughter Alive Father Mother Sister Son 1 Alive Son 2 Social History Tobacco Use Types Packs/Day Years Used Date Smoking Tobacco: Former Cigarettes Alcohol Use Standard Drinks/Week Comments Never 0 (1 standard drink = 0.6 oz pur e alcohol) Comments Unknown Sex and Gender Information Value Date Recorded Sex Assigned at Not on file Legal Sex 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 Gender Identity Not on file Sexual Orientation Not on file Last Filed Vital Signs Vital Sign Reading Time Taken Comments Blood Pressure 135/74 01/05/2022 8:02 AM HOUSEHOLD APPLIANCE ASSEMBLER Pulse 86 01/05/2022 8:02 AM HOUSEHOLD APPLIANCE ASSEMBLER Temperature 36.9 C (98.4 F) 01/05/2022 8:02 AM HOUSEHOLD APPLIANCE ASSEMBLER Respiratory Rate 19 01/05/2022 8:02 AM HOUSEHOLD APPLIANCE ASSEMBLER Oxygen Saturation 97% 01/05/2022 8:02 AM HOUSEHOLD APPLIANCE ASSEMBLER Inhaled Oxygen Concentration - - Weight 68.7 kg (151 lb 6.4 oz) 01/05/2022 4:08 A M HOUSEHOLD APPLIANCE ASSEMBLER Height 157.5 cm (5' 2 ) 01/02/2022 8:11 PM HOUSEHOLD APPLIANCE ASSEMBLER Body Mass Index 27.69 01/02/2022 8:11 PM HOUSEHOLD APPLIANCE ASSEMBLER Plan of Treatment Health Maintenance Due Date Last Done Comments DTAP/TDAP/TD VACCINES (1 - Tdap) 1959 PNEUMOCOCCAL VACCINE 50+ YEARS (1 of 2 - PCV) 01/12/19 57 ZOSTER VACCINE (1 of 2) 01/13/1988 OSTEOPOROSIS SCREENING 2003 RSV VACCINE (60+ or ) (1 - 1-dose 75+ series) 2013 INFLUENZA VACCINE (#1) 2025 Medical Devices Implanted Type Area Primary Education Professor Device Identifier Shelf Expiration Date Model / Serial / Lot Clip Crtg Med/Lrg 1112 - [id number] Implanted:Qty: 1 on 01/04/2022 by Miguel Lilly DO at [facility] Clip N/A: Abdomen [employer] [id number] 09/05/2026 1112 / / [id number] Insurance MEDICARE PART A AND B MEDICAID [place] Advance Directives For more information, please contact: [phone] * Full Code (Latest Code Status on File) Date Activated Date Inactivated Comments 01/04/2022 7:05 AM 01/05/2022 2:25 PM * Full Code Date Activated Date Inactivated Comments 01/03/2022 12:19 AM 01/04/2022 7:05 AM
--- NOTE | 2025-07-26 15:45 | ECG_ITS ---
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 Measurements Intervals [place] Rate: 116 P: 0 AR: 0 QRS: 55 QRSD: 94 T: -5 QT: 340 QTc: 473 Interpretive Statements ATRIAL FIBRILLATION WITH RAPID VENTRICULAR RESPONSE MINIMAL ST DEPRESSION [0.025+ mV ST DEPRESSION] ABNORMAL RHYTHM ECG Compared to ECG 05/30/2022 18:44:54 ST (T wave) deviation now present Electronically Signed On 07-26-2025 23:40:15 CDT by Wanda Veliz M.D. [email or web address] [id number]
--- NOTE | 2025-07-26 15:48 | ED_ITS ---
HPI - Weakness 2 General: Chief complaint: Weakness Stated complaint: Sick person History of Present Illness: 85-year-old female history significant f or hyperlipidemia, CAD, CHF, paroxysmal A-fib, pulmonary hypertension and pulmonary fibrosis with chronic hypoxemic respiratory failure on home oxygen 4 L, presenting to the emergency department brought in by family for increasing weakness over the last few days, entire family dealing with flulike symptoms over the last week, patient has had increasing cough as well as nasal congestion, she is not on blood thinners due to history of bleeding in the past, she denies headache or neck pain, she endorses cough, she endorses generalized weakness, she denies any pain related complaints, denies chest pain, denies shortness of breath. Related Data Home Medications ?Medication ?Instructions ?Recorded ?Confirmed ascorbic acid (vitamin C) 500 mg 500 mg PO DAILY 03/2501/30/25 tablet ferrous gluconate 324 mg (38 mg 324 mg PO DAILY 01/30/25 iron) tablet Women's 50+ Daily Form (gkb) 1 tab PO DAILY 01/02/22 0 01/30/25 atorvastatin 40 mg tablet 40 mg PO DAILY 10/27/2201/08 cholestyramine (with sugar) 4 gram 4 ea PO . DIRECTE D PRN Diarrhea 10/27/22 10/27/22 oral powder diphenoxylate-atropine 2.5 1 tab PO DAILY PRN Diarrhea 10/27/22 01/30/25 mg-0.025 mg tablet duloxetine 30 mg capsule,delayed 30 mg PO DAILY 01/30/25 release levothyroxine 75 mcg tablet 75 mcg PO DAILY 10/27/22 0 01/30/25 metoprolol succinate 25 mg 25 mg PO DAILY 10/27/22 tablet,extended release 24 hr tamsulosin 0.4 mg capsule 0.4 mg PO DAILY 10/27/22 pantoprazole 40 mg tablet,delayed 40 mg PO DAILY 04/0801/30/25 release furosemide 20 mg tablet 20 mg PO DAILY 07/28/2301/08 hydrocodone 5 mg-acetaminophen 325 1 tab PO Q6H PRN Pa in 07/28/23 01/30/25 mg tablet Allergies Allergy/AdvReac Type Severity Reaction Status Date / Time No Known Allergies Allergy Verified 07/26/25 15:46 PFS ED 2 PFSH: Medical History Pulmonary fibrosis Pulmonary fibrosis Spleen laceration Cardiomegaly Family history of MD (myocardial infarction) Cholelithiasis Dyspnea Arteriosclerotic coronary artery disease Anemia Dyslipidemia COPD (chronic obstructive pulmonary disease) 2L NC continuous use Sleep apnea Ventral hernia Congestive heart failure Colon cancer 2006 Coronary artery disease Surgical History History of hemicolectomy Right 2006 Hx of esophagogastroduodenoscopy History of PTCA Hx of colonoscopy 06/2019 -- no abnormalities (ileocolic anastomosis) Hx of bilateral cataract extraction 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 Family History Brother Cancer Sister Cancer Other CAD (coronary artery disease) Social History (Updated 07/26/25 @ 21:14 by Ronny Zaragoza MD) Smoking and tobacco/nicotine status: former use of tobacco/nicotine Quit status (tobacco/nicotine): has quit using Year quit tobacco: 1974 Former quit date comment: Smoked a year or 2 only Alcohol intake: former Year of sobriety/quit date alcohol: 1984 Former alcohol use details: Was never heavy drinker Substance/Drug Use: never Additional social history: Patient wants DNR status as discussed with patient and son Pal on 07/26/2025 with Ronny Zaragoza MD 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 Physical Exam 2 Narrative: EXAM NARRATIVE: Gen: A&Ox4, no acute distress, nontoxic appearing HEENT: Normocephalic, atraumatic, no scleral icterus, external ears normal, moist mucous membranes, no scalp hematoma or laceration, no periorbital ecchymosis, no Chun sign, no tenderness palpation of the neck, patient sitting up in bed comfortably ranging neck in all directions without discomfort Neck: Supple, full range of motion, no observable masses Lungs: Patient saturating 88 to 90% on 4 L nasal cannula, mildly tachypneic without acute respiratory distress or accessory muscle usage, speaking in full sentences, lungs with scattered rales CV: Irregular rhythm, tachycardic in the 110's, no murmur, no JVD, no peripheral pitting edema to the legs Abdomen: Soft, nondistended, nontender to palpation MSK: No joint swelling, FROM all 4 extremities, no tenderness to palpation of the pelvis with pelvic rocking, no pain with passive or active range of motion of the lower extremities to the hips or knees Skin: No rashes, petechiae, lesions. Normal color per patient. Neuro: Alert and oriented x 4, no slurred speech, sensation and strength grossly intact all 4 extremities Psych: Appropriate for situation. Course 2 Reevaluation(s): Reevaluation #1: Patient reassessed, she is switched to oxygen mask at 7 L/min as she appears to be mouth breathing, she has a persistent hypoxemia in the mid 80s although there is a relatively poor waveform and I am not in entirely convinced that it is truly hypoxemia given the patient is asymptomatic and feels as if her breathing is not affected. Will obtain an ABG to assess for PaO2, consider escalating to heated high flow Time: 16:49 Reevaluation #2: Results of ABG confirming hypoxemia with a PaO2 of 58 on 7 L via Venturi mask, plan to escalate to heated high flow given no hypercapnia and history of intrinsic lung disease to reduce barotrauma, RT aware Time: 17:04 Reevaluation #3: Patient accepted to [facility] [place] facility, stable for transfer Time: 19:39 Consultations: Consultation #1: Spoke with Dr. Zaragoza of [facility] who will come to evaluate and admit the patient Time: 19:49 Vital Signs: Vital signs: Vital Signs Temperature 98.5 F 07/26/25 15:36 Pulse Rate 80 07/26/25 19:30 Respiratory Rate 22 H 07/26/25 19:30 Blood Pressure 101/60 07/26/25 18:12 Pulse Oximetry 88 L 07/26/25 19:30 Oxygen Delivery Me thod Heated High Flow 07/26/25 18:12 Oxygen Flow Rate 50 07/26/25 19:30 Fraction of Inspir ed Oxygen 65 07/26/25 19:30 MDM - Weakness Medical Decision Making 85-year-old female history of hyperlipidemia CHF CAD A-fib, pulmonary fibrosis on chronic 4 L nasal cannula at home, presenting to the emergency department with cough, weakness, multiple sick contacts at home, 2 falls today due to weakness, patient currently is awake alert oriented x 4, has no pain related complaints, does appear possibly septic with tachycardia, mild A-fib RVR, tachypnea, no evidence of peripheral edema, appears hypovolemic clinically, BP low normal but currently maintaining appropriate MAP, no evidence of external trauma on exam, lungs have rales diffusely possibly due to underlying pulmonary fibrosis versus pulmonary edema versus pulmonary infection, meets SIRS criteria plan for sepsis evaluation, IV fluids, empiric antibiotic, rule out hypercapnia, reassess for disposition. Lab Data Labs showing mild anemia, no leukocytosis, mild KATHY with creatinine 1.6 from a baseline of 0.9-1.1, elevated lactate 3.5, no acidemia however there is elevated anion gap and borderline acidosis, UTI showing on urinalysis with significant bacteria, moderate hypomagnesium at 1.5 07/26/25 16:02 07/26/25 16:02 Radiology Impressions Chest X-Ray 07/26/25 15:40 IMPRESSION: Stable presumed chronic interstitial lung disease. Mild cardiomegaly and prominent central pulmonary arteries. No acute abnormality. CT scan of the chest 06/02/2021 demonstrates severe diffuse interstitial lung disease with honeycombing, likely pulmonary fibrosis. Chest CTA 07/26/25 17:04 IMPRESSION: 1. No definitive radiographic evidence of significant pulmonary embolism or right heart strain. 2. Aortic and coronary atherosclerosis. 3. Severe pulmonary fibrosis. Laboratory Results WBC 9.20 10^3/uL (3.29-11.43) 07/26/25 16:02 RBC 3.71 10^6/uL (3.85-5.65) L 07/26/25 16:02 Hgb 11.10 g/dL (11.27-16.99) L 07/26/25 16:02 Hct 33.7 % (36-47) L 07/26/25 16:02 MCV 90.8 fl (85-98) 07/26/25 16:02 MCH 29.9 pg (27-33) 07/26/25 16:02 MCHC 32.9 g/dL (30-55) 07/26/25 16:02 RDW 13.5 % (12.1-15.1) 07/26/25 16:02 Plt Count 264 10^3/cmm (157-399) 07/26/25 16:02 MPV 10.4 fL (7.4-10.4) 07/26/25 16:02 Neut % (Auto) 72.3 % 07/26/25 16:02 Lymph % (Auto) 15.1 % 07/26/25 16:02 [place] % (Auto) 11.7 % 07/26/25 16:02 Eos % (Auto) 0.1 % 07/26/25 16:02 Baso % (Auto) 0.4 % 07/26/25 16:02 Neut # (Auto) 6.64 10^3/uL (1.8-7.7) 07/26/25 16:02 Lymph # (Auto) 1.4 10^3/uL (0.8-4.8) 07/26/25 16:02 [place] # (Auto) 1.1 10^3/uL (0.2-0.9) H 07/26/25 16:02 Eos # (Auto) 0.0 10^3/uL (0.0-0.8) 07/26/25 16:02 Baso # (Auto) 0.0 10^3/uL (0.0-0.1) 07/26/25 16:02 Nucleated RBC % (auto) 0 % 07/26/25 16:02 Nucleated RBCs # 0.0 /100WBC 07/26/25 16:02 PT 16.20 SECONDS (12.1-14.9) H 07/26/25 16:02 INR 1.21 (0.8-1.2) H 07/26/25 16:02 APTT 29.9 SECONDS (23.9-36.7) 07/26/25 16:02 Specimen Type Arterial 07/26/25 16:49 Sample Site Radial, left 07/26/25 16:49 ABG pH 7.40 (7.35-7.45) 07/26/25 16:49 ABG pCO2 37.4 mmHg (35-45) 07/26/25 16:49 ABG pO2 58.8 mmHg (80.0-100.0) L 07/26/25 16:49 ABG HCO3 23.1 mmol/L (22-26) 07/26/25 16:49 ABG Base Excess -1.5 mmol/L (-2.0-2.0) 07/26/25 16:49 Quintin Test Pos 07/26/25 16:49 VBG pH 7.46 (7.32-7.42) H 07/26/25 16:04 VBG pCO2 36.8 mmHg (41-51) L 07/26/25 16:04 VBG pO2 28.6 mmHg (25-40) 07/26/25 16:04 VBG HCO3 26.3 mmol/L (24-28) 07/26/25 16:04 VBG Base Excess 2.6 mmol/L (-3.0-3.0) 07/26/25 16:04 VBG Hematocrit 36.0 % (37-47) L 07/26/25 16:04 Hematocrit 31.4 % (37-47) L 07/26/25 16:49 Hgb O2 Saturation 89.4 % (95-100) L 07/26/25 16:49 Carboxyhemoglobin 1.3 %THgb (0.4-20.1) 07/26/25 16:49 Methemoglobin < 0.0 % (0.4-1.5) L 07/26/25 16:49 Total Hemoglobin 10.2 g/dL (12-16) L 07/26/25 16:49 O2 Delivery Device Oxy mask 07/26/25 16:49 O2 Liters/Min 7.0 % 07/26/25 16:49 Health And Safety Consultant ID glc 07/26/25 16:49 Sodium 136 mmol/L (136-145) 07/26/25 16:02 Potassium 4.4 mmol/L (3.5-5.1) 07/26/25 16:02 Chloride 95 mmol/L (98-107) L 07/26/25 16:02 Carbon Dioxide 23 mmol/L (22-29) 07/26/25 16:02 Anion Gap 22.4 (5-19) H 07/26/25 16:02 BUN 37 mg/dL (8-23) H 07/26/25 16:02 Creatinine 1.6 mg/dL (0.5-0.9) H 07/26/25 16:02 GFR Calculation Not Reportable 07/26/25 16:02 Glucose 243 mg/dL (65-115) H 07/26/25 16:02 Calculated Osmolality 299 mOsm/kg (285-295) H 07/26/25 16:02 Lactic Acid 3.4 mmol/L (0.5-2.2) H 07/26/25 16:02 Lactic Acid (Sepsis) 1.6 mmol/L (0.5-2.2) 07/26/25 18:45 Calcium 9.1 mg/dL (8.5-10.5) 07/26/25 16:02 Magnesium 1.5 mg/dL (1.7-2.3) L 07/26/25 16:02 Total Bilirubin 0.6 mg/dL (0.15-1.2) 07/26/25 16:02 AST 26 U/L (0-32) 07/26/25 16:02 ALT 17 U/L (0-33) 07/26/25 16:02 Alkaline Phosphatase 152 U/L (35-105) H 07/26/25 16:02 Total Protein 8.1 g/dL (6.6-8.7) 07/26/25 16:02 Albumin 3.3 g/dL (3.5-5.2) L 07/26/25 16:02 Globulin 4.8 g/dL (1.3-4.6) H 07/26/25 16:02 Procalcitonin 0.64 ng/mL (0-0.5) H 07/26/25 16:02 Urine Color Yellow (Yellow) 07/26/25 16:00 Urine Appearance Turbid (CLEAR) A 07/26/25 16:00 Urine pH 5.5 (5-7) 07/26/25 16:00 Ur Specific [place] 1.012 (1.005-1.030) 07/26/25 16:00 Urine Protein 1+ (Negative) A 07/26/25 16:00 Urine Glucose (UA) Negative (Normal) 07/26/25 16:00 Urine Ketones Trace (Negative) 07/26/25 16:00 Urine Blood 1+ (Negative) A 07/26/25 16:00 Urine Nitrate Negative (Negative) 07/26/25 16:00 Urine Bilirubin Negative (Negative) 07/26/25 16:00 Urine Urobilinogen 0.2 mg/dL (Negative) 07/26/25 16:00 Ur Leukocyte Esterase 3+ (Negative) A 07/26/25 16:00 Urine RBC 0-2 /hpf (0-2) 07/26/25 16:00 Urine WBC >100 /hpf (0-5) H 07/26/25 16:00 Ur Squamous Epith Cells 0-5 /hpf (0-5) 07/26/25 16:00 Amorphous Sediment Not Reportable 07/26/25 16:00 Urine Bacteria 4+ /hpf (NONE) H 07/26/25 16:00 Hyaline Casts 7.85 /lpf 07/26/25 16:00 Influenza A (PCR) Negative (Negative) 07/26/25 16:00 Influenza Type B (PCR) Negative (Negative) 07/26/25 16:00 RSV (PCR) Negative (Negative) 07/26/25 16:00 SARS-CoV-2 (PCR) Negative (Negative) 07/26/25 16:00 All radiology interpretation(s) finalized by discharge ED provider radiology interpretation(s): Chest x-ray with chronic interstitial lung disease, no obvious acute changes or pulmonary edema CT of the chest with no overt pulmonary embolism or pneumonia, chronic severe pulmonary fibrosis EKG Data EKG 1: I personally reviewed and interpreted this EKG as follows: EKG interpretation date: 07/26/25 EKG interpretation time: 15:47 Interpretation: Atrial fibrillation with rapid ventricular response at 116 bpm, no STEMI, normal axis, QTc 409 ms, minimal diffuse submillimeter ST depression consider demand ischemic changes Discharge Plan Discharge Patient Disposition: Admitted As Inpatient Admit Provider: Ronny Zaragoza Clinical Impression: Acute UTI, Acute hypoxic respiratory failure, Acute lactic acidosis, Hypomagnesemia Condition: Stable Coding Level of Care Code ED Medical Technologist Hematology for Katieg Dickson
[2025-07-26] MEDS: cefepime 1,000 mg SDV 1000 MG IVP (16:03)
[2025-07-26 16:09] LABS: Base Excess VBG 2.6 mmol/L (-3.0-3.0); Blood Gas Operator Identificat glc; Blood Gas Sample Site Not specified; Blood Gas Sample Type Venous; HCO3 VBG 26.3 mmol/L (24-28); PCO2 VBG 36.8 mmHg (41-51); PO2 VBG 28.6 mmHg (25-40); Venous Blood Gas Hematocrit 36.0 % (37-47); pH VBG 7.46 (7.32-7.42)
[2025-07-26 16:14] LABS: Hematocrit 33.7 % (36-47); Hemoglobin 11.10 g/dL (11.27-16.99); Mean Corpuscular HGB Conc 32.9 g/dL (30-55); Mean Corpuscular Hemoglobin 29.9 pg (27-33); Mean Corpuscular Volume 90.8 fl (85-98); Nucleated Red Blood Cells % 0 %; Platelet Count 264 10^3/cmm (157-399); Red Blood Count 3.71 10^6/uL (3.85-5.65); White Blood Count 9.20 10^3/uL (3.29-11.43)
[2025-07-26 16:27] LABS: INR 1.21 (0.8-1.2); Prothrombin Time 16.20 SECONDS (12.1-14.9)
[2025-07-26 16:28] LABS: Partial Thromboplastin Time 29.9 SECONDS (23.9-36.7)
--- NOTE | 2025-07-26 16:32 | PC.NURSE ---
provider notified of pt's oxygen saturation/delivery device.
[2025-07-26 16:39] LABS: Slide Review Slide Review Perform
[2025-07-26 16:48] LABS: Alanine Aminotransferase 17 U/L (0-33); Albumin Level 3.3 g/dL (3.5-5.2); Alkaline Phosphatase 152 U/L (35-105); Aspartate Amino Transferase 26 U/L (0-32); Blood Urea Nitrogen 37 mg/dL (8-23); Calcium 9.1 mg/dL (8.5-10.5); Carbon Dioxide 23 mmol/L (22-29); Chloride 95 mmol/L (98-107); Creatinine Clr Calc Pharmacy 23.1507; Globulin 4.8 g/dL (1.3-4.6); Glucose 243 mg/dL (65-115); Magnesium 1.5 mg/dL (1.7-2.3); Osmolality Calculated 299 mOsm/kg (285-295); Sodium 136 mmol/L (136-145); Total Protein 8.1 g/dL (6.6-8.7)
[2025-07-26 16:49] LABS: Lactic Sepsis W/Reflex 3.4 mmol/L (0.5-2.2)
[2025-07-26 16:55] LABS: Procalcitonin 0.64 ng/mL (0-0.5)
[2025-07-26 16:59] LABS: Anion Gap 22.4 (5-19); Potassium 4.4 mmol/L (3.5-5.1)
[2025-07-26 16:59] LABS: ABG PCO2 37.4 mmHg (35-45); ABG PH Result 7.40 (7.35-7.45); Arterial Blood Gas Hematocrit 31.4 % (37-47); Blood Gas Allen Test Pos; Blood Gas LPM 7.0 %; Blood Gas Operator Identificat glc; Blood Gas Sample Site Radial, left; Blood Gas Sample Type Arterial; Carboxyhemoglobin 1.3 %THgb (0.4-20.1); HCO3 ABG 23.1 mmol/L (22-26); Methemoglobin < 0.0 % (0.4-1.5); PO2 ABG 58.8 mmHg (80.0-100.0)
[2025-07-26 17:01] LABS: Glucose Urine UA Negative (Normal); Nitrate Urine Negative (Negative); Specific Gravity, Urine 1.012 (1.005-1.030)
--- NOTE | 2025-07-26 17:04 | CTR_ITS ---
PROCEDURE INFORMATION: Exam: CTA Chest With Contrast Exam date and time: 07/26/2025 6:32 PM Age: 85 years old Clinical indication: Shortness of breath; Prior surgery; Surgery date: 6+ months; Surgery type: Open heart; Additional info: HX pulm fibrosis, hypoxia, eval occult pna/pe TECHNIQUE: Imaging protocol: Computed tomographic angiography of the chest with contrast. Exam focused on the arteries. 3D rendering (Not supervised by radiologist): MIP and/or 3D reconstructed images were created by the technologist. Radiation optimization: All CT scans at this facility use at least one of these dose optimization techniques: automated exposure control; mA and/or kV adjustment per patient size (includes targeted exams where dose is matched to clinical indication); or iterative reconstruction. Contrast material: OMNIPAQUE 350; Contrast volume: 89 ml; Contrast route: INTRAVENOUS (IV); COMPARISON: CT angio chest w abd pel w con 06/02/2021 2:27 AM RADIATION DOSE METRICS: Total DLP (mGy-cm): 372.18 FINDINGS: Pulmonary arteries: No definitive radiographic evidence of significant pulmonary embolism or right heart strain. Aorta: Aortic and coronary atherosclerosis. Lungs: Severe pulmonary fibrosis. Pleural spaces: Unremarkable. No pneumothorax. No pleural effusion. Heart: Post cardiac surgery residuals. Lymph nodes: Calcified mediastinal and hilar nodes, likely old granulomatous disease. Diaphragm: Probable small hiatal hernia. Gallbladder and biliary ducts: Cholecystectomy clips. Spleen: Granulomatous calcifications of spleen. Intraperitoneal space: Upper abdomen otherwise unremarkable. Bones/joints: Probable generalized osteopenia. [id number] degenerative changes of the thoracic spine. Bridging osteophytes, likely DISH. Since 2020, new wedge compression deformity of T12, likely chronic. Soft tissues: Unremarkable. CT/CT angio chest PE protcl [id number] IMPRESSION: 1. No definitive radiographic evidence of significant pulmonary embolism or right heart strain. 2. Aortic and coronary atherosclerosis. 3. Severe pulmonary fibrosis.
[2025-07-26 17:05] LABS: Add Urine Microscopic? YES
[2025-07-26 17:07] LABS: UA Slide Review UA Slide Review Perf
[2025-07-26] MEDS: magnesium sulfate premix 1 GM/100 ML PIGGYBACK IV ×2 (17:11→18:12)
[2025-07-26 17:33] LABS: Respiratory Syncytial Virus Ce NEGATIVE (Negative); SARS-CoV-2 PCR NEGATIVE (Negative)
[2025-07-26 17:56] LABS: Reflex Lactate Order REFLEX LACTIC ORDERD
--- NOTE | 2025-07-26 18:28 | PC.NURSE ---
per respiratory to transport pt on 10L Oxymask d/t being unable to transport heated high-flow. metallurgical lab technician assisted CT in transport to scan.
[2025-07-26] MEDS: iohexol 350 mg/mL 500 mL Btl (per mL) IV (18:44)
[2025-07-26 19:10] LABS: Lactic Acid level (Lactate) 1.6 mmol/L (0.5-2.2)
--- NOTE | 2025-07-26 21:03 | PM.HP ---
Providers/Chief Complaint Admitting Physician: Ronny Zaragoza MD Primary Care Provider: Malik Weathers MD Chief Complaint: Sick person History of Present Illness Shankar Cam is a 85 year old female with history of pulmonary fibrosis chronically on 4 L/min oxygen at home. She has had history of atrial fibrillation not on anticoagulation due to bleeding, coronary disease status post CABG 2007, and history of right hemicolectomy 2006 for cancer that did not require chemoradiation has had weakness cough for 3 days. She thinks she got this from her housing and residence life director who as a kid goes to school. Patient states her cough is productive of yellow phlegm and she is more short of breath. She denies dysuria but was found to have UTI on workup today along with elevated white count. She has been treated with cefepime and referred for admission. Her oxygen requirement is currently heated high flow at 40 L/min 50% where it usually at home she is on 4 L/min nasal cannula. She last saw Dr. Gilmore on 01/30/2025 and risk of stroke was discussed but due to risk of bleeding anticoagulation was not pursued. Review of Systems Narrative: General no fevers chills night sweats weight stable Cardiovascular no palpitations she does have sometimes leg swelling rate right greater than left denies chest pain Respiratory positive for cough yellow phlegm GI no nausea vomiting diarrhea she does have constipation goes every 3 days she took an Ex-Lax the other day and had diarrhea no dysuria hematuria incontinence Malignancy history positive for colon cancer resected 2006 Hematologic no history of clots in legs or clots in lungs she is not on anticoagulation due to bleeding Medications/Allergies Home Medications ?Medication ?Instructions ?Recorded ?Confirmed ?Last Taken ?Type ascorbic acid (vitamin C) 500 mg 500 mg PO DAILY 03/25/21 01/30/25 07/28/23 History tablet ferrous gluconate 324 mg (38 mg 324 mg PO DAILY 03/25/21 01/30/25 07/28/23 History iron) tablet Women's 50+ Daily Form (gkb) 1 tab PO DAILY 01/02/22 01/30/25 07/28/23 History atorvastatin 40 mg tablet 40 mg PO DAILY 10/27/22 01/30/25 10/26/22 History cholestyramine (with sugar) 4 gram 4 ea PO . DIRECTED PRN Diarrhea 10/27/22 10/27/22 Unknown History oral powder diphenoxylate-atropine 2.5 1 tab PO DAILY PRN Diarrhea 10/27/22 01/30/25 Unknown History mg-0.025 mg tablet duloxetine 30 mg capsule,delayed 30 mg PO DAILY 10/27/22 01/30/25 10/27/22 History release levothyroxine 75 mcg tablet 75 mcg PO DAILY 10/27/22 01/30/25 10/27/22 History metoprolol succinate 25 mg 25 mg PO DAILY 10/27/22 01/30/25 10/27/22 History tablet,extended release 24 hr tamsulosin 0.4 mg capsule 0.4 mg PO DAILY 10/27/22 01/30/25 10/27/22 History pantoprazole 40 mg tablet,delayed 40 mg PO DAILY 04/08/23 01/30/25 07/28/23 History release furosemide 20 mg tablet 20 mg PO DAILY 07/28/23 01/30/25 07/28/23 History hydrocodone 5 mg-acetaminophen 325 1 tab PO Q6H PRN Pain 07/28/23 01/30/25 07/28/23 History mg tablet Allergies Allergy/AdvReac Type Severity Reaction Status Date / Time No Known Allergies Allergy Verified 07/26/25 15:46 PFSH Acute PFSH: Medical History (Updated 07/26/25 @ 21:16 by Ronny Zaragoza MD) Iron deficiency anemia Acute on chronic hypoxic respiratory failure Pulmonary fibrosis Pulmonary fibrosis Spleen laceration Cardiomegaly Family history of [place] (myocardial infarction) Cholelithiasis Dyspnea Arteriosclerotic coronary artery disease Anemia Dyslipidemia COPD (chronic obstructive pulmonary disease) 2L NC continuous use Sleep apnea Ventral hernia Congestive heart failure Colon cancer 2006 Coronary artery disease Surgical History History of hemicolectomy Right 2006 Hx of esophagogastroduodenoscopy History of PTCA Hx of colonoscopy 06/2019 -- no abnormalities (ileocolic anastomosis) Hx of bilateral cataract extraction 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 Family History Brother Cancer Sister Cancer Other CAD (coronary artery disease) Social History (Updated 07/26/25 @ 21:14 by Ronny Zaragoza MD) Smoking and tobacco/nicotine status: former use of tobacco/nicotine Quit status (tobacco/nicotine): has quit using Year quit tobacco: 1974 Former quit date comment: Smoked a year or 2 only Alcohol intake: former Year of sobriety/quit date alcohol: 1984 Former alcohol use details: Was never heavy drinker Substance/Drug Use: never Additional social history: Patient wants DNR status as discussed with patient and son Pal on 07/26/2025 with Ronny Zaragoza MD 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 Oropharynx Mallampati 2 no teeth CV irregular rhythm rate is controlled Lungs crackles heard bilateral mid and lower lung merino air movement is moderate good Abdomen positive bowel tones soft distended not tender Calves decreased skin turgor no edema Radial and dorsal pedal pulses intact Mentation alert and oriented pleasant Urinary Catheter Management: Pro: Cath Placed During This Visit: yes Reason for Continuing Indwelling Catheter: Accurate Measurement of Urinary Output in Critically Ill Patients Urinary Catheter Date of Insertion: 07/26/25 Urinary Catheter Time of Insertion: 15:58 Data 07/26/25 16:02 07/26/25 16:02 Micro: Microbiology 07/26/25 16:02 Blood Culture - Preliminary Blood SPECIMEN COLLECTED 07/26/25 16:00 Blood Culture - Preliminary Blood SPECIMEN COLLECTED A&P Assessment and plan 1. Acute on chronic hypoxic respiratory failure: Patient requiring heated high flow currently and history of phlegm consistent with bronchitis. Cannot completely exclude atypical pneumonia given her significant lung scarring seen on CT scan. Add azithromycin for atypical pneumonia. 2. Acute UTI: Will treat with Rocephin urine cultures pending as well as blood culture. UA positive patient asymptomatic but comes in with acute respiratory failure and warrants treatment 3. Hypomagnesemia: Give 2 g IV mag sulfate 4. Atrial fibrillation, persistent: Patient's rate is controlled on just metoprolol. TSH will be checked as she is on chronic levothyroxine I am going to give DVT prophylaxis but not initiate anticoagulation as that has been visit in the past. Will check iron level as she has had iron deficiency anemia and presumed GI bleed that is chronic with a history of colonic anastomosis after right hemicolectomy for colon cancer. 5. Pulmonary fibrosis: Chronic 6. Arteriosclerotic coronary artery disease: Stable 7. Iron deficiency anemia: Chronic. It is unclear to me if the patient would want to pursue further EGD and colonoscopy for chronic blood loss anemia which makes it hard for her to be anticoagulated for A-fib. Patient had a noninjury fall recently that she does not recall but states that typically she can walk and only has to use a walker sometimes PDMP PDMP Reviewed: Not Reviewed Attestations Medical Necessity Statement*: Patient is admitted to the hospital with acute hypoxemic respiratory failure on chronic respiratory failure due to pulmonary fibrosis and also has UTI and bronchitis and we will require greater than 2 midnights in the hospital Coding Level of Care Code 10937 Diagnoses Acute on chronic hypoxic respiratory failure J96.21 Acute UTI N39.0 Hypomagnesemia E83.42 Atrial fibrillation, persistent I48.19 Pulmonary fibrosis J84.10 Arteriosclerotic coronary artery disease I25.10 Iron deficiency anemia D50.9 Time Spent (min) 70
[2025-07-26] MEDS: magnesium sulfate premix 2 GM/50 ML PIGGYBACK IV (22:23)
[2025-07-26] MEDS: sodium chlor 0.9% + KCl 20 mEq 20 MEQ/1,000 ML BAG 100 MEQ IV (23:01)
[2025-07-27] VITALS (185 sets, daily range): BP systolic 80–136; BP diastolic 46–82; PULSE 61–116; RESP 13–36; TEMP 36.6–37; O2SAT 79–100
[2025-07-27 01:53] LABS: Iron 14 ug/dL (37-145); Total Iron Binding Capacity 228 mcg/dl; Unsaturated Iron Binding 214 ug/dL (112-347)
[2025-07-27 04:02] LABS: Hematocrit 30.4 % (36-47); Hemoglobin 9.60 g/dL (11.27-16.99); Mean Corpuscular HGB Conc 31.6 g/dL (30-55); Mean Corpuscular Hemoglobin 29.1 pg (27-33); Mean Corpuscular Volume 92.1 fl (85-98); Nucleated Red Blood Cells % 0 %; Platelet Count 211 10^3/cmm (157-399); Red Blood Count 3.30 10^6/uL (3.85-5.65); White Blood Count 7.51 10^3/uL (3.29-11.43)
[2025-07-27 04:27] LABS: Anion Gap 16.0 (5-19); Blood Urea Nitrogen 31 mg/dL (8-23); Calcium 8.3 mg/dL (8.5-10.5); Carbon Dioxide 24 mmol/L (22-29); Chloride 101 mmol/L (98-107); Creatinine Clr Calc Pharmacy 28.1274; Glucose 120 mg/dL (65-115); Magnesium 2.9 mg/dL (1.7-2.3); Osmolality Calculated 292 mOsm/kg (285-295); Potassium 4.0 mmol/L (3.5-5.1); Sodium 137 mmol/L (136-145)
[2025-07-27 04:34] LABS: Thyroid Stimulating Hormone 0.87 uIU/mL (0.27-4.20)
--- NOTE | 2025-07-27 08:18 | P.PN_ITS ---
Subjective 2 Subjective: the Patient was seen in the morning, she was on high flow nasal cannula with 50% FiO2 and 55 flow rate The patient is advised in case of lung fibrosis saturating in the range of 89 to 90% Patient voiced that this is her baseline, able to speak in full sentences and no drowsiness or fatigability reported Vitals/I&O/Wt Last Vital Signs Temp 97.5 F L 07/26/25 23:30 Pulse 78 07/27/25 07:25 Resp 18 07/27/25 07:25 BP 103/58 07/27/25 04:30 Pulse Ox 95 07/27/25 07:25 O2 Del Method High Flow Nasal Cannula 07/27/25 04:30 O2 Flow Rate 50 07/27/25 07:25 FiO2 55 07/27/25 07:25 07/26/25 07/27/25 07/27/25 22:59 06:59 14:59 Intake Total 1772 / 1772 50 / 1822 Output Total 600 / 600 Balance 1772 / 1772 -550 / 1222 Weight last 48 hrs Weight 67.5 kg Weight 67.5 kg Weight 67.5 kg Weight 69.4 kg Physical Exam 2 Narrative: General: Alert and oriented, with mild tachypnea that is her baseline and on high flow nasal cannula, able to speak in full sentences HEENT: Normocephalic, atraumatic, grossly unremarkable exam Cardio: normal rate rhythm, normal S1-S2, loud P2 without any murmurs, rubs, or gallops and JVD normal Respiratory: Inspiratory and expiratory fine crepitations heard all over heard both lung merino and very mild wheezes as well. No stridor or any decreased air entry relatively observed GI: Abdomen soft, nontender, nondistended, normoactive bowel sounds present all 4 quadrants, Neuro: intact cranial nerves motor and sensory and cerebellar/coordination function without any focal neurological deficit Behavior: Appropriate and cooperative Extremities: Trace pedal edema Skin: grossly unremarkable exam Urinary Catheter Management: Pro: Cath Placed During This Visit: yes Reason for Continuing Indwelling Catheter: Accurate Measurement of Urinary Output in Critically Ill Patients Urinary Catheter Date of Insertion: 07/26/25 Urinary Catheter Time of Insertion: 15:58 Data 07/27/25 03:25 07/27/25 03:25 Micro: Microbiology 07/26/25 16:02 Blood Culture - Preliminary Blood SPECIMEN COLLECTED 07/26/25 16:00 Blood Culture - Preliminary Blood SPECIMEN COLLECTED A&P Assessment and plan 1. Acute on chronic hypoxic respiratory failure: Patient having baseline lung fibrosis, based on symptoms with worsening hypoxia and phlegm admitted as bronchitis Pro-Moe was high To continue on ceftriaxone and azithromycin Follow blood cultures Sputum cultures to send and follow 2. Acute UTI: Patient having asymptomatic bacteriuria Continue on ceftriaxone since the patient is having multiple comorbidities and immunocompromised based on her age and other multiple factors, therefore treatment is beneficial considering risk and benefits in her case 3. Hypomagnesemia: Correction provided, 4. Atrial fibrillation, persistent: Continue home dose metoprolol XL 25 mg daily Monitor vitals The patient is not on anticoagulation as per the previous retrospective notes since the patient has high risk of bleeding 5. Pulmonary fibrosis: Chronic, currently at baseline High pulmonary artery pressure Continue to monitor for any worsening symptoms Oxygen protocol to continue 6. 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 Continue to monitor patient CBC and keep hemoglobin above 7-8 7. Hypothyroidism: TSH normal, continue on home dose levothyroxine 50 mcg daily 8. Arteriosclerotic coronary artery disease: Stable Plan: Patient can be transferred to cardiac stepdown unit PDMP PDMP Reviewed: Not Reviewed Attestations 2 Medical Necessity Statement*: Patient is admitted to the hospital with acute hypoxemic respiratory failure on chronic respiratory failure due to pulmonary fibrosis and also has UTI and bronchitis and we will require greater than 2 midnights in the hospital Time Spent in Patient Care: 16 - 35 minutes (>than 50% of time sp ent in counselling and/or direct pt care on unit) . Critical Care Time: The high probability of a clinically significant, sudden or life threatening deterioration, as referenced in this documentation, required my full and direct attention, intervention and personal management. The critical care time shown is in addition to time spent performing any reported separately billable procedures and includes the following: [x] Data and vital sign review and interpretation [x ] Patient assessment, examination and intervention [x] Medication orders and management [x] Patient/Family updates as able [x] Care Coordination and Documentation. Critical Care Time (min): 35 Other Attestations: Patient condition has been discussed at length with the patient/family, I have independently reviewed the chart labs imaging/diagnostics/EKG. the goals of care and code status with the patient/family/NOK/legal shared services representative, and documented accordingly. The patient/family has been informed about the current condition and further plan of care. Agreed with the plan of care and understood without any language barrier. Every effort was made to ensure accuracy of vice president business development. Any obvious errors or omissions should be clarified with the author of the document. Coding Level of Care Code Critical Care >/= 30 minutes Diagnoses Acute on chronic hypoxic respiratory failure J96.21 Acute UTI N39.0 Hypomagnesemia E83.42 Atrial fibrillation, persistent I48.19 Pulmonary fibrosis J84.10 Iron deficiency anemia D50.9 Hypothyroidism E03.9 Arteriosclerotic coronary artery disease I25.10
[2025-07-27] MEDS: sodium chlor 0.9% + KCl 20 mEq 20 MEQ/1,000 ML BAG 100 MEQ IV ×2 (08:20→17:43)
[2025-07-27] MEDS: metoprolol succinate ER (24 HR) 25 mg Tablet PO (08:21)
[2025-07-27] MEDS: cefTRIAXone 1,000 mg SDV 1000 MG IVP (08:21)
[2025-07-27] MEDS: multivitamin therapeutic Tablet 1 TAB PO (08:21)
[2025-07-27] MEDS: oxyCODONE 5 mg IR Tab/Cap PO (11:46)
--- NOTE | 2025-07-27 17:52 | PC.NURSE ---
Progress/Shift note: Patient up to chair for approximately four hours in the afternoon. Patient had one small loose bowel movement. Patient complained of pain while in the chair and received oxycodone. Patient back to bed for a nap, upon waking patient was confused requiring bed alarm. Patient family states this happens at home after she takes her pain medication. Patient AOX3 by end of shift change. Patient is eating her evening meal, refuses Colace due to loose stool. 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
[2025-07-28] VITALS (39 sets, daily range): BP systolic 113–174; BP diastolic 67–102; PULSE 80–115; RESP 18–38; TEMP 36.5–37.3; O2SAT 85–98
[2025-07-28 03:27] LABS: Hematocrit 29.8 % (36-47); Hemoglobin 9.00 g/dL (11.27-16.99); Mean Corpuscular HGB Conc 30.2 g/dL (30-55); Mean Corpuscular Hemoglobin 28.6 pg (27-33); Mean Corpuscular Volume 94.6 fl (85-98); Nucleated Red Blood Cells % 0 %; Platelet Count 200 10^3/cmm (157-399); Red Blood Count 3.15 10^6/uL (3.85-5.65); White Blood Count 7.59 10^3/uL (3.29-11.43)
[2025-07-28] MEDS: sodium chlor 0.9% + KCl 20 mEq 20 MEQ/1,000 ML BAG 100 MEQ IV ×2 (03:42→13:59)
[2025-07-28 03:48] LABS: Alanine Aminotransferase 23 U/L (0-33); Albumin Level 2.7 g/dL (3.5-5.2); Alkaline Phosphatase 175 U/L (35-105); Anion Gap 14.7 (5-19); Aspartate Amino Transferase 33 U/L (0-32); Blood Urea Nitrogen 22 mg/dL (8-23); Calcium 8.1 mg/dL (8.5-10.5); Carbon Dioxide 21 mmol/L (22-29); Chloride 108 mmol/L (98-107); Creatinine Clr Calc Pharmacy 36.5656; Globulin 3.9 g/dL (1.3-4.6); Glucose 139 mg/dL (65-115); Osmolality Calculated 294 mOsm/kg (285-295); Potassium 4.7 mmol/L (3.5-5.1); Sodium 139 mmol/L (136-145); Total Protein 6.6 g/dL (6.6-8.7)
[2025-07-28] MEDS: metoprolol succinate ER (24 HR) 25 mg Tablet PO (08:34)
[2025-07-28] MEDS: multivitamin therapeutic Tablet 1 TAB PO (08:34)
[2025-07-28] MEDS: cefTRIAXone 1,000 mg SDV 1000 MG IVP (08:35)
--- NOTE | 2025-07-28 12:05 | PC.SOCIAL ---
IMM Updated Updated pt on IMM. No questions voiced. Provided pt a copy. Initialed, dated, & timed a copy & placed in chart.
--- NOTE | 2025-07-28 12:07 | P.PN_ITS ---
Subjective 2 Subjective: Patient was seen in the morning, doing well. Saturating above 94% on high flow nasal cannula with FiO2 55% and flow rate to 50 L/min Informed assigned nurse to wean down oxygen to her home dose and monitor if cannot tolerate Patient voiced no complaints Vitals/I&O/Wt Last Vital Signs Temp 98.8 F 07/28/25 07:30 Pulse 86 07/28/25 09:30 Resp 29 H 07/28/25 09:30 BP 121/73 07/28/25 09:30 Pulse Ox 96 07/28/25 09:30 O2 Del Method Heated High Flow 07/28/25 09:30 O2 Flow Rate 50 07/28/25 09:30 FiO2 55 07/28/25 09:30 07/27/25 07/28/25 07/28/25 22:59 06:59 14:59 Intake Total 1138.333 / 2645.000 998.333 / 3643.333 240 / 240 Output Total 450 / 450 360 / 810 Balance 688.333 / 2195.000 638.333 / 2833.333 240 / 240 Weight last 48 hrs Weight 70.5 kg Weight 70.5 kg Weight 67.5 kg Weight 67.5 kg Weight 67.5 kg Weight 69.4 kg Physical Exam 2 Narrative: General: Alert and oriented, with mild tachypnea at baseline that is her baseline and on high flow nasal cannula, able to speak in full sentences HEENT: Normocephalic, atraumatic, grossly unremarkable exam Cardio: normal rate rhythm, normal S1-S2, loud P2 without any murmurs, rubs, or gallops and JVD normal Respiratory: Inspiratory and expiratory fine crepitations heard all over heard both lung merino and very mild wheezes as well. No stridor or any decreased air entry relatively observed GI: Abdomen soft, nontender, nondistended, normoactive bowel sounds present all 4 quadrants, Neuro: intact cranial nerves motor and sensory and cerebellar/coordination function without any focal neurological deficit Behavior: Appropriate and cooperative Extremities: Trace pedal edema Skin: grossly unremarkable exam Urinary Catheter Management: Pro: Cath Placed During This Visit: yes Reason for Continuing Indwelling Catheter: Accurate Measurement of Urinary Output in Critically Ill Patients Urinary Catheter Date of Insertion: 07/26/25 Urinary Catheter Time of Insertion: 15:58 Data 07/28/25 02:57 07/28/25 02:57 Micro: Microbiology 07/27/25 11:49 Gram Stain - Final Sputum - Expectorated Sputum Sputum Culture - Preliminary 07/26/25 16:00 Blood Culture - Preliminary Blood NEGATIVE TO DATE 07/26/25 16:02 Blood Culture - Preliminary Blood NEGATIVE TO DATE 07/26/25 16:00 Urine Culture - Preliminary Urine,Clean Catch Gram Negative Rods A&P Assessment and plan 1. Acute on chronic hypoxic respiratory failure: Patient having baseline lung fibrosis, based on symptoms with worsening hypoxia and phlegm admitted as bronchitis Pro-Moe was high To continue on ceftriaxone and azithromycin Blood culture and sputum cultures negative to date 2. Acute UTI: Patient having asymptomatic bacteriuria Urine culture grew gram-negative rods and to follow culture sensitivity Continue on ceftriaxone since the patient is having multiple comorbidities and immunocompromised based on her age and other multiple factors, therefore treatment is beneficial considering risk and benefits in her case 3. Hypomagnesemia: Correction provided, 4. Atrial fibrillation, persistent: Continue home dose metoprolol XL 25 mg daily, currently controlled heart rate Monitor vitals and blood pressure Hold metoprolol for heart rate less than 60/min although blood pressure is less than 100/mmhg The patient is not on anticoagulation as per the previous retrospective notes since the patient has high risk of bleeding 5. Pulmonary fibrosis: Chronic, currently at baseline High pulmonary artery pressure Continue to monitor for any worsening symptoms Oxygen protocol to continue and titrate accordingly to maintain the range of 88 to 92% 6. 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 Continue to monitor patient CBC and keep hemoglobin above 7-8 7. Hypothyroidism: TSH normal, continue on home dose levothyroxine 50 mcg daily 8. Arteriosclerotic coronary artery disease: Stable Plan: Patient can be transferred to cardiac stepdown unit PDMP PDMP Reviewed: Not Reviewed Attestations 2 Medical Necessity Statement*: [facility] will be less than 2 midnights for management of acute bronchitis, UTI and weaning off from the oxygen Time Spent in Patient Care: 16 - 35 minutes (>than 50% of time sp ent in counselling and/or direct pt care on unit) . Other Attestations: Patient condition has been discussed at length with the patient/family, I have independently reviewed the chart labs imaging/diagnostics/EKG. the goals of care and code status with the patient/family/NOK/legal telemarketing sales representative, and documented accordingly. The patient/family has been informed about the current condition and further plan of care. Agreed with the plan of care and understood without any language barrier. Every effort was made to ensure accuracy of fiber designer. Any obvious errors or omissions should be clarified with the author of the document. Coding Level of Care Code 06528 Diagnoses Acute on chronic hypoxic respiratory failure J96.21 Acute UTI N39.0 Hypomagnesemia E83.42 Atrial fibrillation, persistent I48.19 Pulmonary fibrosis J84.10 Iron deficiency anemia D50.9 Hypothyroidism E03.9 Arteriosclerotic coronary artery disease I25.10
--- NOTE | 2025-07-28 15:19 | PC.OT ---
OT treatment session attempted with pt declining services; will attempt again at later time.
[2025-07-28] MEDS: ampicillin-sulbactam 3 GM in sodium chloride 0.9% (plus) 50 ML IV ×2 (16:35→21:15)
--- NOTE | 2025-07-28 16:46 | PC.NURSE ---
Report was given to OMI Mendiola in [facility]. Patient was stable during transfer.
[2025-07-29] VITALS (7 sets, daily range): BP systolic 112–144; BP diastolic 75–87; PULSE 77–104; RESP 18–95; TEMP 36.3–37; O2SAT 90–97
--- NOTE | 2025-07-29 00:02 | PC.NURSE ---
Aid went into patient room to do beginning shift vitals to find patient had pulled her Pro out and had bowl movement on the floor. Patient assessed not bleeding and cleaned up and put back to bed with bed alarm due to sun downing.
[2025-07-29] MEDS: FUROsemide 10 mg/mL SDV 2mL 20 MG IVP (00:52)
[2025-07-29] MEDS: ampicillin-sulbactam 3 GM in sodium chloride 0.9% (plus) 50 ML IV ×4 (04:00→21:49)
[2025-07-29] MEDS: haloperidol inj 5 mg/mL INJ 1 mL 2 MG IVP ×2 (04:20→05:02)
--- NOTE | 2025-07-29 06:09 | PC.NURSE ---
Patient became angry with all staff and hitting thought staff was going to hurt her contacted Dr. Zaragoza he ordered 2mg Haldol. Patient still very agitated and combative following Haldol administration. Kicking and hitting at sitter and staff, will not follow commands. Keeps taking oxygen off, and desats with minimal exertion to 68%. Irritable and appears in respiratory distress with labored breathing. Dr. Zaragoza at bedside and gave the following verbal order. Haldol 2mg IVP x1 dose now.
[2025-07-29 08:18] LABS: Hematocrit 30.6 % (36-47); Hemoglobin 9.30 g/dL (11.27-16.99); Mean Corpuscular HGB Conc 30.4 g/dL (30-55); Mean Corpuscular Hemoglobin 28.9 pg (27-33); Mean Corpuscular Volume 95.0 fl (85-98); Nucleated Red Blood Cells % 0 %; Platelet Count 201 10^3/cmm (157-399); Red Blood Count 3.22 10^6/uL (3.85-5.65); White Blood Count 6.35 10^3/uL (3.29-11.43)
[2025-07-29 08:36] LABS: Alanine Aminotransferase 22 U/L (0-33); Albumin Level 2.4 g/dL (3.5-5.2); Alkaline Phosphatase 168 U/L (35-105); Blood Urea Nitrogen 19 mg/dL (8-23); Calcium 8.1 mg/dL (8.5-10.5); Carbon Dioxide 21 mmol/L (22-29); Chloride 108 mmol/L (98-107); Creatinine Clr Calc Pharmacy 37.5292; Globulin 4.0 g/dL (1.3-4.6); Glucose 129 mg/dL (65-115); Osmolality Calculated 296 mOsm/kg (285-295); Sodium 141 mmol/L (136-145); Total Protein 6.4 g/dL (6.6-8.7)
[2025-07-29 08:57] LABS: Anion Gap 16.4 (5-19); Aspartate Amino Transferase 34 U/L (0-32); Potassium 4.4 mmol/L (3.5-5.1)
[2025-07-29 09:02] LABS: Slide Review Slide Review Perform
[2025-07-29] MEDS: multivitamin therapeutic Tablet 1 TAB PO (10:36)
[2025-07-29] MEDS: metoprolol succinate ER (24 HR) 25 mg Tablet PO (10:37)
--- NOTE | 2025-07-29 11:11 | PM.PN ---
Subjective Subjective: Patient was seen in the morning, doing well. Saturating around 88 to 92% with 4 to 5 L nasal cannula Over 24 hours in the night the patient was having acute delirium that later on improved. Pro's catheter was out as well however the patient is able to pee The patient doing well at baseline in the morning, voiced no complaints and was asking to sleep. Patient is stable and at baseline, for discharge however considering her home situation needs correctional casework specialist for further disposition and arrangement for possible fdc versus home health and will likely be done over weekdays Vitals/I&O/Wt Last Vital Signs Temp 98.2 F 07/29/25 11:10 Pulse 101 H 07/29/25 11:10 Resp 18 07/29/25 11:10 BP 139/87 07/29/25 11:10 Pulse Ox 90 07/29/25 11:10 O2 Del Method Nasal Cannula 07/29/25 11:10 O2 Flow Rate 4 07/29/25 08:17 FiO2 55 07/28/25 09:30 07/28/25 07/29/25 07/29/25 22:59 06:59 14:59 Intake Total 340 / 1580 1050 / 2630 240 / 240 Output Total 500 / 500 450 / 950 Balance -160 / 1080 600 / 1680 240 / 240 Weight last 48 hrs Weight 71.35 kg Weight 70.5 kg Weight 70.5 kg Physical Exam Narrative: General: Alert and oriented, with mild tachypnea at baseline that is her baseline on 4 to 5 L oxygen through nasal cannula saturating in the range of 88 to 92% which is appropriate for her, able to speak in full sentences and no acute respiratory distress HEENT: Normocephalic, atraumatic, grossly unremarkable exam Cardio: normal rate rhythm, normal S1-S2, loud P2 without any murmurs, rubs, or gallops and JVD normal Respiratory: Inspiratory and expiratory fine crepitations heard all over heard both lung merino and very mild wheezes as well. No stridor. GI: Abdomen soft, nontender, nondistended, normoactive bowel sounds present all 4 quadrants, Neuro: intact cranial nerves motor and sensory and cerebellar/coordination function without any focal neurological deficit Behavior: Appropriate and cooperative Extremities: Trace pedal edema Skin: grossly unremarkable exam Urinary Catheter Management: Pro: Cath Placed During This Visit: yes, but has since been removed by the nurse Reason for Continuing Indwelling Catheter: Other Urinary Catheter Date of Insertion: 07/26/25 Urinary Catheter Time of Insertion: 15:58 Date Urinary Catheter Removed: 07/29/25 Time Urinary Catheter Discontinued: 20:00 Data 07/29/25 08:09 07/29/25 08:09 Micro: Microbiology 07/26/25 16:00 Urine Culture - Final Urine,Clean Catch Citrobacter amalonaticus 07/27/25 11:49 Gram Stain - Final Sputum - Expectorated Sputum Sputum Culture - Preliminary A&P Assessment and plan 1. Acute on chronic hypoxic respiratory failure: Patient having baseline lung fibrosis, based on symptoms with worsening hypoxia and phlegm admitted as bronchitis Pro-Moe was high Patient already completed 3 days of azithromycin patient urine culture showed Citrobacter species and therefore based on the sensitivity antibiotics was switched to Unasyn it was resistant to ceftriaxone. To complete Unasyn for further 5 to 7 days, and if the patient is for discharge in switch to Augmentin Blood culture and sputum cultures negative to date 2. Acute UTI: Patient having asymptomatic bacteriuria started on antibiotics based on the patient immunocompromise status and considering risk and benefits to optimize further patient care. Urine culture grew Citrobacter species and based on sensitivity started on Unasyn [07/28/2025] 3. Hypomagnesemia: Correction provided and resolved 4. Atrial fibrillation, persistent: Continue home dose metoprolol XL 25 mg daily, currently controlled heart rate Monitor vitals and blood pressure Hold metoprolol for heart rate less than 60/min although blood pressure is less than 100/mmhg The patient is not on anticoagulation as per the previous retrospective notes since the patient has high risk of bleeding 5. Pulmonary fibrosis: Chronic, currently at baseline High pulmonary artery pressure Continue to monitor for any worsening symptoms Oxygen protocol to continue and titrate accordingly to maintain the range of 88 to 92% 6. 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 Continue to monitor patient CBC and keep hemoglobin above 7-8 7. Hypothyroidism: TSH normal, continue on home dose levothyroxine 50 mcg daily 8. Arteriosclerotic coronary artery disease: Stable 9. Encounter for screening involving social determinants of health (SDoH): Patient lives alone and sometimes the home health aide comes, the family relayed further information that requires correctional casework specialist on board for further arrangements for safe disposition to home. Patient is having advanced pulmonary fibrosis therefore has grossly limited mobility and activity of daily living that are limited because of exertional dyspnea and dyspnea at rest. She needs assistance in the form of home health/nursing and also some physical therapy to help her with her daily life activities. Therefore the patient to be kept as inpatient in order to arrange safe disposition to home which will be done over the weekdays Plan: Patient can be transferred to cardiac stepdown unit PDMP PDMP Reviewed: Not Reviewed Attestations Medical Necessity Statement*: Shankar Cam's hospital stay will be less than 2 midnights for management of acute bronchitis, UTI and safe disposition to home with arrangement by the correctional casework specialist which will be done over week Time Spent in Patient Care: 16 - 35 minutes (>than 50% of time spent in counselling and/or direct pt care on unit). Other Attestations: Patient condition has been discussed at length with the patient/family, I have independently reviewed the chart labs imaging/diagnostics/EKG. the goals of care and code status with the patient/family/NOK/legal footwear sales representative, and documented accordingly. The patient/family has been informed about the current condition and further plan of care. Agreed with the plan of care and understood without any language barrier. Every effort was made to ensure accuracy of [employer]. Any obvious errors or omissions should be clarified with the author of the document. Coding Level of Care Code 52485 Diagnoses Acute on chronic hypoxic respiratory failure J96.21 Acute UTI N39.0 Hypomagnesemia E83.42 Atrial fibrillation, persistent I48.19 Pulmonary fibrosis J84.10 Iron deficiency anemia D50.9 Hypothyroidism E03.9 Arteriosclerotic coronary artery disease I25.10 Encounter for screening involving social determinants of health (SDoH) Z13.9
--- NOTE | 2025-07-29 18:28 | PC.NURSE ---
Reaves: Patient had pulled her reaves catheter out last night with the baloon intact. Nurse monitored throughout the day. Patient did not have any difficulty urinating, no blood or blood clots present in urine.
--- NOTE | 2025-07-29 18:29 | PC.NURSE ---
SHift SUmmary: Uneventful shift. Patient rested in bed for much of the day, but was frequently up to a chair or the bedside commode. Calm, cooperative, oriented to person and place. Previous nursing staff state that the patient sundowns and becomes much more difficult to manage overnight.
[2025-07-30] VITALS (9 sets, daily range): BP systolic 128–165; BP diastolic 72–89; PULSE 63–99; RESP 15–21; TEMP 35.8–36.8; O2SAT 91–98
[2025-07-30] MEDS: ampicillin-sulbactam 3 GM in sodium chloride 0.9% (plus) 50 ML IV ×4 (04:04→22:45)
[2025-07-30 08:36] LABS: Hematocrit 30.6 % (36-47); Hemoglobin 9.50 g/dL (11.27-16.99); Mean Corpuscular HGB Conc 31.0 g/dL (30-55); Mean Corpuscular Hemoglobin 28.2 pg (27-33); Mean Corpuscular Volume 90.8 fl (85-98); Nucleated Red Blood Cells % 0 %; Platelet Count 254 10^3/cmm (157-399); Red Blood Count 3.37 10^6/uL (3.85-5.65); White Blood Count 7.08 10^3/uL (3.29-11.43)
--- NOTE | 2025-07-30 08:48 | P.PN_ITS ---
Subjective 2 Subjective: Patient was seen in the morning, doing well. Saturating around 88 to 92% with 4 to 5 L nasal cannula No overnight issues The patient doing well at baseline in the morning, voiced no complaints.. Patient is stable and at baseline, for discharge however considering her home situation needs manager case management for further disposition and arrangement for possible care home versus home health and will likely be done over weekdays Vitals/I&O/Wt Last Vital Signs Temp 97.8 F 07/30/25 07:58 Pulse 83 07/30/25 08:04 Resp 18 07/30/25 08:04 BP 165/80 07/30/25 07:58 Pulse Ox 94 07/30/25 08:05 O2 Del Method Nasal Cannula 07/30/25 08:05 O2 Flow Rate 4 07/30/25 08:05 FiO2 55 07/28/25 09:30 07/29/25 07/30/25 07/30/25 22:59 06:59 14:59 Intake Total 50 / 340 100 / 440 Output Total 700 / 1000 Balance -650 / -660 100 / -560 Weight last 48 hrs Weight 67.676 kg Weight 71.35 kg Physical Exam 2 Narrative: General: Alert and oriented however sometimes gets disoriented, with mild tachypnea at baseline that is her baseline on 4 to 5 L oxygen through nasal cannula saturating in the range of 88 to 92% which is appropriate for her, able to speak in full sentences and no acute respiratory distress HEENT: Normocephalic, atraumatic, grossly unremarkable exam Cardio: normal rate rhythm, normal S1-S2, loud P2 without any murmurs, rubs, or gallops and JVD normal Respiratory: Inspiratory and expiratory fine crepitations heard all over heard both lung merino and very mild wheezes as well. No stridor. GI: Abdomen soft, nontender, nondistended, normoactive bowel sounds present all 4 quadrants, Neuro: intact cranial nerves motor and sensory and cerebellar/coordination function without any focal neurological deficit Behavior: Appropriate and cooperative Extremities: Trace pedal edema Skin: grossly unremarkable exam Urinary Catheter Management: Pro: Cath Placed During This Visit: yes, but has since been removed by the nurse Reason for Continuing Indwelling Catheter: Other Urinary Catheter Date of Insertion: 07/26/25 Urinary Catheter Time of Insertion: 15:58 Date Urinary Catheter Removed: 07/29/25 Time Urinary Catheter Discontinued: 06:00 Data 07/30/25 08:05 07/30/25 08:05 Micro: Microbiology 07/27/25 11:49 Gram Stain - Final Sputum - Expectorated Sputum Sputum Culture - Final A&P Assessment and plan 1. Acute on chronic hypoxic respiratory failure: Patient having baseline lung fibrosis, based on symptoms with worsening hypoxia and phlegm admitted as bronchitis Pro-Moe was high Patient already completed 3 days of azithromycin patient urine culture showed Citrobacter species and therefore based on the sensitivity antibiotics was switched to Unasyn it was resistant to ceftriaxone. To complete Unasyn for further 5 to 7 days, and if the patient is for discharge in switch to Augmentin Blood culture and sputum cultures negative to date 2. Acute UTI: Patient having asymptomatic bacteriuria started on antibiotics based on the patient immunocompromise status and considering risk and benefits to optimize further patient care. Urine culture grew Citrobacter species and based on sensitivity started on Unasyn [07/28/2025 till 08/03/25] 3. Hypomagnesemia: Correction provided and resolved 4. Atrial fibrillation, persistent: Continue home dose metoprolol XL 25 mg daily, currently controlled heart rate Monitor vitals and blood pressure Hold metoprolol for heart rate less than 60/min although blood pressure is less than 100/mmhg The patient is not on anticoagulation as per the previous retrospective notes since the patient has high risk of bleeding 5. Pulmonary fibrosis: Chronic, currently at baseline High pulmonary artery pressure Continue to monitor for any worsening symptoms Oxygen protocol to continue and titrate accordingly to maintain the range of 88 to 92% 6. 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 Continue to monitor patient CBC and keep hemoglobin above 7-8 7. Hypothyroidism: TSH normal, continue on home dose levothyroxine 50 mcg daily 8. Arteriosclerotic coronary artery disease: Stable 9. Encounter for screening involving social determinants of health (SDoH): Patient lives alone and sometimes the home health aide comes, the family relayed further information that requires manager case management on board for further arrangements for safe disposition to home. Patient is having advanced pulmonary fibrosis therefore has grossly limited mobility and activity of daily living that are limited because of exertional dyspnea and dyspnea at rest. She needs assistance in the form of home health/nursing and also some physical therapy to help her with her daily life activities. Therefore the patient to be kept as inpatient in order to arrange safe disposition to home which will be done over the weekdays Plan: Patient can be transferred to cardiac stepdown unit PDMP PDMP Reviewed: Not Reviewed Attestations 2 Medical Necessity Statement*: Shankar Cam's hospital stay will be less than 2 midnights for management of acute bronchitis, UTI and safe disposition to home with arrangement by the manager case management which will be done over weekdays Time Spent in Patient Care: 16 - 35 minutes (>than 50% of time sp ent in counselling and/or direct pt care on unit) . Other Attestations: Patient condition has been discussed at length with the patient/family, I have independently reviewed the chart labs imaging/diagnostics/EKG. the goals of care and code status with the patient/family/NOK/legal development representative, and documented accordingly. The patient/family has been informed about the current condition and further plan of care. Agreed with the plan of care and understood without any language barrier. Every effort was made to ensure accuracy of wallcovering texturer. Any obvious errors or omissions should be clarified with the author of the document. Coding Level of Care Code 97492 Diagnoses Acute on chronic hypoxic respiratory failure J96.21 Acute UTI N39.0 Hypomagnesemia E83.42 Atrial fibrillation, persistent I48.19 Pulmonary fibrosis J84.10 Iron deficiency anemia D50.9 Hypothyroidism E03.9 Arteriosclerotic coronary artery disease I25.10 Encounter for screening involving social determinants of health (SDoH) Z13.9
[2025-07-30 09:00] LABS: Alanine Aminotransferase 20 U/L (0-33); Albumin Level 2.7 g/dL (3.5-5.2); Alkaline Phosphatase 182 U/L (35-105); Anion Gap 15.8 (5-19); Aspartate Amino Transferase 29 U/L (0-32); Blood Urea Nitrogen 17 mg/dL (8-23); Calcium 8.5 mg/dL (8.5-10.5); Carbon Dioxide 25 mmol/L (22-29); Chloride 108 mmol/L (98-107); Creatinine Clr Calc Pharmacy 33.2815; Globulin 4.0 g/dL (1.3-4.6); Glucose 140 mg/dL (65-115); Osmolality Calculated 304 mOsm/kg (285-295); Potassium 3.8 mmol/L (3.5-5.1); Sodium 145 mmol/L (136-145); Total Protein 6.7 g/dL (6.6-8.7)
[2025-07-30] MEDS: multivitamin therapeutic Tablet 1 TAB PO (11:17)
[2025-07-30] MEDS: metoprolol succinate ER (24 HR) 25 mg Tablet PO (11:17)
[2025-07-31 03:29] LABS: Alanine Aminotransferase 19 U/L (0-33); Albumin Level 2.6 g/dL (3.5-5.2); Alkaline Phosphatase 168 U/L (35-105); Blood Urea Nitrogen 17 mg/dL (8-23); Calcium 8.3 mg/dL (8.5-10.5); Carbon Dioxide 27 mmol/L (22-29); Chloride 105 mmol/L (98-107); Globulin 4.0 g/dL (1.3-4.6); Glucose 118 mg/dL (65-115); Osmolality Calculated 301 mOsm/kg (285-295); Sodium 144 mmol/L (136-145); Total Protein 6.6 g/dL (6.6-8.7)
[2025-07-31 03:36] LABS: Anion Gap 15.7 (5-19); Aspartate Amino Transferase 28 U/L (0-32); Creatinine Clr Calc Pharmacy 36.6096; Potassium 3.7 mmol/L (3.5-5.1)
[2025-07-31 03:37] LABS: Hematocrit 30.0 % (36-47); Hemoglobin 9.10 g/dL (11.27-16.99); Mean Corpuscular HGB Conc 30.3 g/dL (30-55); Mean Corpuscular Hemoglobin 28.8 pg (27-33); Mean Corpuscular Volume 94.9 fl (85-98); Nucleated Red Blood Cells % 0 %; Platelet Count 209 10^3/cmm (157-399); Red Blood Count 3.16 10^6/uL (3.85-5.65); White Blood Count 6.54 10^3/uL (3.29-11.43)
[2025-07-31 04:00] VITALS: BP 132/88; PULSE 81; RESP 19; TEMP 36.6; O2SAT 95
[2025-07-31] MEDS: ampicillin-sulbactam 3 GM in sodium chloride 0.9% (plus) 50 ML IV ×2 (04:20→11:40)
[2025-07-31 07:39] VITALS: BP 129/70; PULSE 86; TEMP 36.3; O2SAT 97
[2025-07-31] MEDS: multivitamin therapeutic Tablet 1 TAB PO (08:29)
[2025-07-31] MEDS: metoprolol succinate ER (24 HR) 25 mg Tablet PO (08:29)
[2025-07-31 08:38] VITALS: PULSE 86; RESP 18; O2SAT 97
--- NOTE | 2025-07-31 09:52 | P.DS_ITS ---
Discharge Providers Date of Admission: 07/26/25 19:47 Date of Discharge: July 31, 2025 Attending Provider at Admission: Ronny Zaragoza MD Attending Provider at Discharge: Ronny Zaragoza MD Primary Care Provider: Malik Weathers MD Diagnoses at Discharge Discharge Diagnosis 1. Acute on chronic hypoxic respiratory failure: Details from hospital stay: Improved resume home oxygen and discharge today 2. Acute UTI: Details from hospital stay: Complete course of Augmentin for Citrobacter 3. Hypomagnesemia: Details from hospital stay: Replaced 4. Atrial fibrillation, persistent: Details from hospital stay: She has chronic anemia and this has been discussed by her primary care physician anticoagulation not desired nor evaluation for anemia 5. Pulmonary fibrosis: Details from hospital stay: Chronic and not related to smoking 6. Iron deficiency anemia: Details from hospital stay: Follow-up with outpatient physician Dr. Weathers 7. Hypothyroidism: Details from hospital stay: Stable 8. Arteriosclerotic coronary artery disease: Details from hospital stay: Stable 9. Encounter for screening involving social determinants of health (SDoH): Details from hospital stay: Will return home with her son Pal Reason for Visit Reason for Visit: Sick person Brief History: Shankar Cam is a 85 year old female with history of pulmonary fibrosis chronically on 4 L/min oxygen at home. She has had history of atrial fibrillation not on anticoagulation due to bleeding, coronary disease status post CABG 2007, and history of right hemicolectomy 2006 for cancer that did not require chemoradiation has had weakness cough for 3 days. 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 Patient states her cough is productive of yellow phlegm and she is more short of breath. She denies dysuria but was found to have UTI on workup today along with elevated white count. She has been treated with cefepime and referred for admission. Her oxygen requirement is currently heated high flow at 40 L/min 50% where it usually at home she is on 4 L/min nasal cannula. She last saw Dr. Gilmore on 01/30/2025 and risk of stroke was discussed but due to risk of bleeding anticoagulation was not pursued. Hospital Course Hospital Course Patient was found to have UTI with Citrobacter amalonaticus sensitive to Zosyn and Augmentin. Blood cultures were negative. Patient was initially treated with Rocephin but was culture proven to be in sensitive. Patient had acute on chronic respiratory failure treated with azithromycin treated with azithromycin for 5 days. She has known pulmonary fibrosis in the absence of smoking. Patient had significant sundowning requiring bedside evaluation overnight on the . Patient was treated with Haldol. This morning she is completely cooperative. She is noted to have sundowning in the evening and she admits to some confusion at night. Physical Exam Narrative: General well-developed well-nourished female in no acute cardiopulmonary stress CV regular rate and rhythm Lungs clear to auscultation bilaterally Abdomen positive bowel tones soft nontender Mentation patient knows she lives at home with her son Pal Urinary Catheter Management: Pro: Cath Placed During This Visit: yes, but has since been removed by the nurse Reason for Continuing Indwelling Catheter: Other Urinary Catheter Date of Insertion: 07/26/25 Urinary Catheter Time of Insertion: 15:58 Date Urinary Catheter Removed: 07/29/25 Time Urinary Catheter Discontinued: 06:00 Discharge Data Studies Completed and Pending Completed Studies During Hospitalization Category Date Time Status CTA PE [CT angio chest PE protcl [id number]] Stat Cat Scan 07/26/25 17:04 Completed XR chest 1V portable [id number] Stat Exams 07/26/25 15:40 Completed Pending at discharge Category Date Time Status Blood Culture Stat Lab 07/26/25 16:02 Results Radiology Impressions Chest X-Ray 07/26/25 15:40 IMPRESSION: Stable presumed chronic interstitial lung disease. Mild cardiomegaly and prominent central pulmonary arteries. No acute abnormality. CT scan of the chest 06/02/2021 demonstrates severe diffuse interstitial lung disease with honeycombing, likely pulmonary fibrosis. Chest CTA 07/26/25 17:04 IMPRESSION: 1. No definitive radiographic evidence of significant pulmonary embolism or right heart strain. 2. Aortic and coronary atherosclerosis. 3. Severe pulmonary fibrosis. Laboratory Results WBC 6.54 10^3/uL (3.29-11.43) 07/31/25 02:12 RBC 3.16 10^6/uL (3.85-5.65) L 07/31/25 02:12 Hgb 9.10 g/dL (11.27-16.99) L 07/31/25 02:12 Hct 30.0 % (36-47) L 07/31/25 02:12 MCV 94.9 fl (85-98) 07/31/25 02:12 MCH 28.8 pg (27-33) 07/31/25 02:12 MCHC 30.3 g/dL (30-55) 07/31/25 02:12 RDW 14.4 % (12.1-15.1) 07/31/25 02:12 Plt Count 209 10^3/cmm (157-399) 07/31/25 02:12 MPV 10.4 fL (7.4-10.4) 07/31/25 02:12 Neut % (Auto) 53.6 % 07/31/25 02:12 Lymph % (Auto) 29.4 % 07/31/25 02:12 [place] % (Auto) 10.1 % 07/31/25 02:12 Eos % (Auto) 5.7 % 07/31/25 02:12 Baso % (Auto) 0.3 % 07/31/25 02:12 Neut # (Auto) 3.51 10^3/uL (1.8-7.7) 07/31/25 02:12 Lymph # (Auto) 1.9 10^3/uL (0.8-4.8) 07/31/25 02:12 [place] # (Auto) 0.7 10^3/uL (0.2-0.9) 07/31/25 02:12 Eos # (Auto) 0.4 10^3/uL (0.0-0.8) 07/31/25 02:12 Baso # (Auto) 0.0 10^3/uL (0.0-0.1) 07/31/25 02:12 Nucleated RBC % (auto) 0 % 07/31/25 02:12 Nucleated RBCs # 0.0 /100WBC 07/31/25 02:12 PT 16.20 SECONDS (12.1-14.9) H 07/26/25 16:02 INR 1.21 (0.8-1.2) H 07/26/25 16:02 APTT 29.9 SECONDS (23.9-36.7) 07/26/25 16:02 Specimen Type Arterial 07/26/25 16:49 Sample Site Radial, left 07/26/25 16:49 ABG pH 7.40 (7.35-7.45) 07/26/25 16:49 ABG pCO2 37.4 mmHg (35-45) 07/26/25 16:49 ABG pO2 58.8 mmHg (80.0-100.0) L 07/26/25 16:49 ABG HCO3 23.1 mmol/L (22-26) 07/26/25 16:49 ABG Base Excess -1.5 mmol/L (-2.0-2.0) 07/26/25 16:49 Quintin Test Pos 07/26/25 16:49 VBG pH 7.46 (7.32-7.42) H 07/26/25 16:04 VBG pCO2 36.8 mmHg (41-51) L 07/26/25 16:04 VBG pO2 28.6 mmHg (25-40) 07/26/25 16:04 VBG HCO3 26.3 mmol/L (24-28) 07/26/25 16:04 VBG Base Excess 2.6 mmol/L (-3.0-3.0) 07/26/25 16:04 VBG Hematocrit 36.0 % (37-47) L 07/26/25 16:04 Hematocrit 31.4 % (37-47) L 07/26/25 16:49 Hgb O2 Saturation 89.4 % (95-100) L 07/26/25 16:49 Carboxyhemoglobin 1.3 %THgb (0.4-20.1) 07/26/25 16:49 Methemoglobin < 0.0 % (0.4-1.5) L 07/26/25 16:49 Total Hemoglobin 10.2 g/dL (12-16) L 07/26/25 16:49 O2 Delivery Device Oxy mask 07/26/25 16:49 O2 Liters/Min 7.0 % 07/26/25 16:49 [employer] Engineer ID [email or web address] 07/26/25 16:49 Sodium 144 mmol/L (136-145) 07/31/25 02:12 Potassium 3.7 mmol/L (3.5-5.1) 07/31/25 02:12 Chloride 105 mmol/L (98-107) 07/31/25 02:12 Carbon Dioxide 27 mmol/L (22-29) 07/31/25 02:12 Anion Gap 15.7 (5-19) 07/31/25 02:12 BUN 17 mg/dL (8-23) 07/31/25 02:12 Creatinine 1.0 mg/dL (0.5-0.9) H 07/31/25 02:12 GFR Calculation Not Reportable 07/31/25 02:12 Glucose 118 mg/dL (65-115) H 07/31/25 02:12 Calculated Osmolality 301 mOsm/kg (285-295) H 07/31/25 02:12 Lactic Acid 3.4 mmol/L (0.5-2.2) H 07/26/25 16:02 Lactic Acid (Sepsis) 1.6 mmol/L (0.5-2.2) 07/26/25 18:45 Calcium 8.3 mg/dL (8.5-10.5) L 07/31/25 02:12 Phosphorus 2.9 mg/dL (2.5-4.5) 07/27/25 03:25 Magnesium 2.9 mg/dL (1.7-2.3) H 07/27/25 03:25 Iron 14 ug/dL (37-145) L 07/26/25 16:02 TIBC 228 mcg/dl 07/26/25 16:02 % Saturation 6.1 % (20-50) L 07/26/25 16:02 Unsat Iron Binding 214 ug/dL (112-347) 07/26/25 16:02 Total Bilirubin 0.4 mg/dL (0.15-1.2) 07/31/25 02:12 AST 28 U/L (0-32) 07/31/25 02:12 ALT 19 U/L (0-33) 07/31/25 02:12 Alkaline Phosphatase 168 U/L (35-105) H 07/31/25 02:12 Total Protein 6.6 g/dL (6.6-8.7) 07/31/25 02:12 Albumin 2.6 g/dL (3.5-5.2) L 07/31/25 02:12 Globulin 4.0 g/dL (1.3-4.6) 07/31/25 02:12 Procalcitonin 0.64 ng/mL (0-0.5) H 07/26/25 16:02 TSH 0.87 uIU/mL (0.27-4.20) 07/27/25 03:25 Urine Color Yellow (Yellow) 07/26/25 16:00 Urine Appearance Turbid (CLEAR) A 07/26/25 16:00 Urine pH 5.5 (5-7) 07/26/25 16:00 Ur Specific [place] 1.012 (1.005-1.030) 07/26/25 16:00 Urine Protein 1+ (Negative) A 07/26/25 16:00 Urine Glucose (UA) Negative (Normal) 07/26/25 16:00 Urine Ketones Trace (Negative) 07/26/25 16:00 Urine Blood 1+ (Negative) A 07/26/25 16:00 Urine Nitrate Negative (Negative) 07/26/25 16:00 Urine Bilirubin Negative (Negative) 07/26/25 16:00 Urine Urobilinogen 0.2 mg/dL (Negative) 07/26/25 16:00 Ur Leukocyte Esterase 3+ (Negative) A 07/26/25 16:00 Urine RBC 0-2 /hpf (0-2) 07/26/25 16:00 Urine WBC >100 /hpf (0-5) H 07/26/25 16:00 Ur Squamous Epith Cells 0-5 /hpf (0-5) 07/26/25 16:00 Amorphous Sediment Not Reportable 07/26/25 16:00 Urine Bacteria 4+ /hpf (NONE) H 07/26/25 16:00 Hyaline Casts 7.85 /lpf 07/26/25 16:00 Influenza A (PCR) Negative (Negative) 07/26/25 16:00 Influenza Type B (PCR) Negative (Negative) 07/26/25 16:00 RSV (PCR) Negative (Negative) 07/26/25 16:00 SARS-CoV-2 (PCR) Negative (Negative) 07/26/25 16:00 Vitals Last Vital Signs Temp 97.4 F L 07/31/25 07:39 Pulse 86 07/31/25 08:38 Resp 18 07/31/25 08:38 BP 129/70 07/31/25 07:39 Pulse Ox 97 07/31/25 08:38 O2 Del Method Nasal Cannula 07/31/25 08:38 O2 Flow Rate 4 07/31/25 08:38 FiO2 55 07/28/25 09:30 Discharge Plan Discharge Patient Disposition: Xfer SNF Condition: Stable Prescriptions: New amoxicillin-pot clavulanate [Augmentin] 500-125 mg tablet 1 tab PO Q8H 4 Days Qty: 12 0RF olanzapine 5 mg tablet,disintegrating 5 mg PO QPM PRN (Reason: Agitation and confusion) Qty: 30 0RF Continued ascorbic acid (vitamin C) 500 mg tablet 500 mg PO DAILY ferrous gluconate 324 mg (38 mg iron) tablet 324 mg PO DAILY pantoprazole 40 mg tablet,delayed release (DR/EC) 40 mg PO DAILY Women's 50+ Daily Form (gkb) 1 tab PO DAILY furosemide 40 mg tablet 40 mg PO DAILY levothyroxine 50 mcg tablet 50 mcg PO QAM atorvastatin 40 mg tablet 40 mg PO BEDTIME tamsulosin 0.4 mg capsule 0.4 mg PO BEDTIME metoprolol succinate 25 mg tablet extended release 24 hr 37.5 mg PO QAM duloxetine 30 mg capsule,delayed release(DR/EC) 30 mg PO DAILY Discontinued cholestyramine (with sugar) 4 gram powder 4 ea PO . DIRECTED PRN (Reason: Diarrhea) Discharge Order = DC NOW: Discharge Order (Routine); Ordered 07/31/25 Ordered By: Ronny Zaragoza Referrals: Malik Weathers MD [Primary Care Provider, Family Practice] - 4-7 days Referral Note: post discharge follow up Discharge Diet: Cardiac and Low Salt Discharge Activity: Increase activity as tolerated and Limit activity as instructed Patient Instructions: Dementia (GEN), Opioid Safety, Pain Management, Patient Portal & Kalie Instructions Activity Restrictions/Additional Instructions: Resume home oxygen to keep saturations greater than 93% Complete Augmentin antibiotic for urinary tract infection If patient is found to have sundowning with confusion and agitation in the evening give olanzapine oral disintegrating tablet 1 at night as needed Discharge Attestations Time Spent in Discharge Care*: greater than 30 min Quality Metrics Clinical Quality Measures [ No reported AMI, CVA or VTE this stay] Coding Level of Care Code Acute Code for Chg Fwd Diagnoses Acute on chronic hypoxic respiratory failure J96.21 Acute UTI N39.0 Hypomagnesemia E83.42 Atrial fibrillation, persistent I48.19 Pulmonary fibrosis J84.10 Iron deficiency anemia D50.9 Hypothyroidism E03.9 Arteriosclerotic coronary artery disease I25.10 Encounter for screening involving social determinants of health (SDoH) Z13.9
[2025-07-31 10:23] VITALS: O2SAT 86; O2SAT 94
[2025-07-31 12:00] VITALS: BP 129/70; PULSE 89; RESP 18; TEMP 36.3; O2SAT 97
--- NOTE | 2025-07-31 12:34 | PC.NURSE ---
Report called to Shonda HAMMONDS at [facility] [address] at 11:15. Vitals 129/70 89 HR 18 R 97% on 4L. Home O2 ordered. Ampicillin given at 11:00 Patient cooperative and calm. Transport from [facility] here to transport at 12:30 IVS removed and assisted to wheel chair.
[2025-07-31 12:44] VITALS: BP 129/70; PULSE 89; RESP 18; TEMP 36.3; O2SAT 97
--- NOTE | 2025-07-31 14:04 | PC.SOCIAL ---
*IMM Update* Pt received copy of IMM update, initialed and dated in chart.
== END 2025-07-31 12:50 | disposition skilled nursing facility (03) | DRG 689 ==
LOC: ER 20:07 → ICU 20:38 → MEDSURG 07-28 16:18
PROVIDERS: Student in an Organized Health Care Education/Training Program; Admitting Provider Internal Medicine; Emergency Provider Student in an Organized Health Care Education/Training Program; PCP Family Medicine; Visit Provider Internal Medicine
DX: N39.0 Urinary tract infection, site not specified (principal); J96.21 Acute and chronic respiratory failure with hypoxia; Z16.20 Resistance to unspecified antibiotic; I48.19 Other persistent atrial fibrillation; F05 Delirium due to known physiological condition; E87.20 Acidosis, unspecified; B96.89 Other specified bacterial agents as the cause of diseases classified elsewhere; E83.42 Hypomagnesemia; J84.10 Pulmonary fibrosis, unspecified; D50.9 Iron deficiency anemia, unspecified; E03.9 Hypothyroidism, unspecified; I25.10 Atherosclerotic heart disease of native coronary artery without angina pectoris; I27.20 Pulmonary hypertension, unspecified; E78.5 Hyperlipidemia, unspecified; J40 Bronchitis, not specified as acute or chronic; W01.0XXA Fall on same level from slipping, tripping and stumbling without subsequent striking against object, initial encounter; I50.9 Heart failure, unspecified; G47.30 Sleep apnea, unspecified; Z79.899 Other long term (current) drug therapy; Z87.891 Personal history of nicotine dependence; Z85.038 Personal history of other malignant neoplasm of large intestine; Z95.1 Presence of aortocoronary bypass graft; Z99.81 Dependence on supplemental oxygen; Z90.49 Acquired absence of other specified parts of digestive tract; Z82.49 Family history of ischemic heart disease and other diseases of the circulatory system
CPT/HCPCS: 36415; 36600; 51702; 71045; 71275; 80048; 80053; 81001; 82803; 82805; 83540; 83550; 83605; 83735; 84100; 84145; 84443; 85025; 85610; 85730; 87040; 87070; 87077; 87086; 87186; 87205; 87637; 93005; 94640; 94664; 94760; 96365; 96366; 96372; 96375; 97110; 97161; 97167; 97530; 99285; 99291; J0295; J0692; J0696; J1630; J1650; J1938; J3475; J3480; J7030; J7613; J9999; Q0144

== ENCOUNTER 2025-08-18 17:13 | Emergency (ER) | payer MEDICARE, MEDICAID, SELFPAY ==
[2025-08-18 17:12] VITALS: BP 138/74; PULSE 82; RESP 18; TEMP 36.7; O2SAT 85
[2025-08-18 17:23] VITALS: BP 138/74; RESP 81; O2SAT 88
--- NOTE | 2025-08-18 17:23 | XRR_ITS ---
PROCEDURE INFORMATION: Exam: XR Chest Exam date and time: 08/18/2025 5:46 PM Age: 85 years old Clinical indication: Other: Weakness; Prior surgery; Surgery date: 6+ months; Surgery type: Cabg TECHNIQUE: Imaging protocol: Radiologic exam of the chest. Views: 1 view. COMPARISON: CT angio chest PE prot [id number] 07/26/2025 6:32 PM FINDINGS: Lungs: A few scattered nonspecific although chronic appearing pulmonary strands.. Severe pulmonary fibrosis. Pleural spaces: Unremarkable. No pleural effusion. No pneumothorax. Heart/Mediastinum: Post cardiac surgery residuals. Vasculature: Aortic atherosclerosis. Bones/joints: Moderate degenerative changes of the right glenohumeral joint. XR/XR chest 1V portable [id number] IMPRESSION: No definite acute infiltrate or effusion.
--- NOTE | 2025-08-18 17:25 | W.ED.AMS ---
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 Patient states nothing is wrong, and she is mad. She stated that she is going back home, going to clear her house, and is going to be the head motherfucker in charge. She will not answer any more of our stupid questions. She denies any symptoms of dysuria, however orientation questions have been refused. Her oxygen saturation is 85% on room air. She denies any shortness of breath. She pretty much denies anything is wrong with her, and is angry someone brought her to the emergency room. Associated symptoms: Deny depression Related Data Home Medications ?Medication ?Instructions ?Recorded ?Confirmed ascorbic acid (vitamin C) 500 mg 500 mg PO DAILY 03/25/21 07/27/25 tablet ferrous gluconate 324 mg (38 mg 324 mg PO DAILY 03/25/21 07/27/25 iron) tablet Women's 50+ Daily Form (gkb) 1 tab PO DAILY 01/02/22 07/27/25 atorvastatin 40 mg tablet 40 mg PO BEDTIME 10/27/22 07/27/25 duloxetine 30 mg capsule,delayed 30 mg PO DAILY 10/27/22 07/27/25 release metoprolol succinate 25 mg 37.5 mg PO QAM 10/27/22 07/27/25 tablet,extended release 24 hr tamsulosin 0.4 mg capsule 0.4 mg PO BEDTIME 10/27/22 07/27/25 pantoprazole 40 mg tablet,delayed 40 mg PO DAILY 04/08/23 07/27/25 release furosemide 40 mg tablet 40 mg PO DAILY 07/27/25 07/27/25 levothyroxine 50 mcg tablet 50 mcg PO QAM 07/27/25 07/27/25 Previous Rx's ?Medication ?Instructions ?Recorded olanzapine 5 mg disintegrating 5 mg PO QPM PRN Agitation and 07/31/25 tablet confusion #30 tabs Allergies Allergy/AdvReac Type Severity Reaction Status Date / Time No Known Allergies Allergy Verified 07/26/25 15:46 Review of Systems General: Reports: 10 or more systems reviewed and unremarkable except in HPI and below Const: Denies: fever(s), chills, fatigue or malaise ENMT: Denies: throat pain, nasal obstruction or sinus pain Card: Denies: chest pain or palpitations Resp: Denies: dyspnea or non-productive cough GI: Denies: abdominal pain, nausea or vomiting : Denies: flank pain or difficulty voiding Musc: Denies: neck pain or back pain Neuro: Denies: headache(s), numbness in extremities, weakness in extremities, vertigo, confusion or difficulty communicating thoughts Psych: Denies: anxiety or depression PFSH ED PFSH: Medical History (Updated 08/18/25 @ 18:59 by YULIET Kilpatrick) Iron deficiency anemia Acute on chronic hypoxic respiratory failure Pulmonary fibrosis Pulmonary fibrosis Spleen laceration Cardiomegaly Family history of PR (myocardial infarction) Cholelithiasis Dyspnea Arteriosclerotic coronary artery disease Anemia Dyslipidemia COPD (chronic obstructive pulmonary disease) 2L NC continuous use Sleep apnea Ventral hernia Congestive heart failure Colon cancer 2006 Coronary artery disease Surgical History History of hemicolectomy Right 2006 Hx of esophagogastroduodenoscopy History of PTCA Hx of colonoscopy 06/2019 -- no abnormalities (ileocolic anastomosis) Hx of bilateral cataract extraction 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 Family History Brother Cancer Sister Cancer Other CAD (coronary artery disease) Social History (Updated 07/26/25 @ 21:14 by oRnny Zaragoza MD) Smoking and tobacco/nicotine status: former use of tobacco/nicotine Quit status (tobacco/nicotine): has quit using Year quit tobacco: 1974 Former quit date comment: Smoked a year or 2 only Alcohol intake: former Year of sobriety/quit date alcohol: 1984 Former alcohol use details: Was never heavy drinker Substance/Drug Use: never Additional social history: Patient wants DNR status as discussed with patient and son Pal on 07/26/2025 with Ronny Zaragoza MD 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 Physical Exam Const: COMMON NORMALS: no acute distress, average body habitus and patient oriented x3 HENMT: COMMON NORMALS: normocephalic and atraumatic HEAD & SCALP: normocephalic and atraumatic Neck/C-Spine: COMMON NORMALS: full ROM and no lymphadenopathy Chest: COMMONS NORMALS: normal inspection of the chest and normal palpation of entire chest wall Resp: COMMON NORMALS: normal respiratory effort, No retractions and No use of accessory muscles Cardio: COMMON NORMALS: regular rate and regular rhythm RATE: regular rate RHYTHM: regular rhythm GI: COMMON NORMALS: Normal to inspection, nondistended, normoactive bowel sounds present, Soft to palpation, non-tender and No hepatosplenomegaly present PALPATION: Yes Soft to palpation and Yes No hepatosplenomegaly present : COMMON NORMALS: Yes no CVA tenderness BLADDER/KIDNEY EXAM: Yes no CVA tenderness Back/Pelvis: COMMON NORMALS: no CVA tenderness Extremity: COMMON NORMALS: normal to inspection, full ROM and capillary refill normal Neuro: COMMON NORMALS: patient oriented x3, CN's II-XII intact bilaterally and moves all extremities Psych: COMMON NORMALS: mental status grossly normal, Normal thought process present and cooperative THOUGHT PROCESS: Normal thought process present Course Vital Signs: Vital signs: Vital Signs Temperature 98.1 F 08/18/25 17:12 Pulse Rate 78 08/18/25 18:23 Respiratory Rate 81 H 08/18/25 17:23 Blood Pressure 126/74 08/18/25 18:23 Pulse Oximetry 97 08/18/25 18:23 Oxygen Delivery Me thod Nasal Cannula 08/18/25 18:23 Oxygen Flow Rate 2 08/18/25 18:23 MDM - Altered Mental Status Medical Decision Making X-ray appears consistent with interstitial lung disease. There is no infiltrate noted on radiological view. Will check a procalcitonin to see if patient will need to be referred for admission given her low oxygen saturation not on oxygen at home. She does have chronic anemia, current hemoglobin 10.5, which appears to be at baseline. She appears to have chronic metabolic alkalosis with her CO2 of 30 as well supporting the interstitial lung disease, and chronic nature. After her workup has been done, which patient was amicable to was obtaining, her urinalysis is negative, and patient appears to be correct that nothing is wrong, other than she is very angry regarding her daughter's decision to bring her to the emergency room. Son states that they have given patient pain medication at [facility] before, and if she has had hallucinations, confusion as she does today. This does appear consistent. Will call [facility] and asked them if they did in fact give this patient a narcotic. Patient does chronically utilize 4 L of oxygen per minute. On 3 L here, she is 98%. This does not appear to be from acute respiratory failure/pneumonia/infiltrate. She does have prominent interstitial lung disease, for which she will be given Solu-Medrol x 1. CT of the head is not pertinent for bleed, or any other concerns. I discussed the case with [facility], and patient did have tramadol on 08/15. This could cause issues with delayed reaction in the setting of hypovolemia. I am not going to replace patient's fluids since she is 85 years old, and have encourage oral intake. Medical Records I reviewed the patient's medical records. Lab Data I reviewed the patient's lab results. 08/18/25 17:29 08/18/25 17: Radiology Impressions Chest X-Ray 08/18/25 17:23 IMPRESSION: No definite acute infiltrate or effusion. Laboratory Results WBC 6.87 10^3/uL (3.29-11.43) 08/18/25 17: RBC 3.65 10^6/uL (3.85-5.65) L 08/18/25 17: Hgb 10.50 g/dL (11.27-16.99) L 08/18/25 17: Hct 34.3 % (36-47) L 08/18/25 17: MCV 94.0 fl (85-98) 08/18/25 17: MCH 28.8 pg (27-33) 08/18/25 17: MCHC 30.6 g/dL (30-55) 08/18/25 17: RDW 15.3 % (12.1-15.1) H 08/18/25: Plt Count 258 10^3/cmm (157-399) 08/18/25 17: MPV 9.7 fL (7.4-10.4) 08/18/25 17: Neut % (Auto) 37.6 % 08/18/25 17: Lymph % (Auto) 45.3 % 08/18/25 17: [place] % (Auto) 11.6 % 08/18/25 17: Eos % (Auto) 4.8 % 08/18/25 17: Baso % (Auto) 0.4 % 08/18/25 17: Neut # (Auto) 2.58 10^3/uL (1.8-7.7) 08/18/25 17: Lymph # (Auto) 3.1 10^3/uL (0.8-4.8) 08/18/25 17: [place] # (Auto) 0.8 10^3/uL (0.2-0.9) 08/18/25 17: Eos # (Auto) 0.3 10^3/uL (0.0-0.8) 08/18/25: Baso # (Auto) 0.0 10^3/uL (0.0-0.1) 08/18/25 17: Nucleated RBC % (auto) 0 % 08/18/25: Nucleated RBCs # 0.0 /100WBC 08/18/25 17: Sodium 140 mmol/L (136-145) 08/18/25 17: Potassium 4.0 mmol/L (3.5-5.1) 08/18/25 17: Chloride 100 mmol/L (98-107) 08/18/25 17: Carbon Dioxide 30 mmol/L (22-29) H 08/18/25 17: Anion Gap 14.0 (5-19) 08/18/25 17: BUN 20 mg/dL (8-23) 08/18/25 17: Creatinine 0.9 mg/dL (0.5-0.9) 08/18/25 17:29 GFR Calculation Not Reportable 08/18/25 17: Glucose 167 mg/dL (65-115) H 08/18/25 17:29 Calculated Osmolality 296 mOsm/kg (285-295) H 08/18/25 17: Lactic Acid 1.3 mmol/L (0.5-2.2) 08/18/25 17: Calcium 9.2 mg/dL (8.5-10.5) 08/18/25 17: Total Bilirubin 0.3 mg/dL (0.15-1.2) 08/18/25 17: AST 30 U/L (0-32) 08/18/25 17:29 ALT 23 U/L (0-33) 08/18/25 17:29 Alkaline Phosphatase 192 U/L (35-105) H 08/18/25 17:29 Ammonia 12 umol/L (11-51) 08/18/25 17:29 Total Protein 7.9 g/dL (6.6-8.7) 08/18/25 17: Albumin 3.7 g/dL (3.5-5.2) 08/18/25 17: Globulin 4.2 g/dL (1.3-4.6) 08/18/25 17:29 Urine Color Yellow (Yellow) 08/18/25 17:38 Urine Appearance Clear (CLEAR) 08/18/25 17:38 Urine pH 5.5 (5-7) 08/18/25 17:38 Ur Specific Harmony 1.014 (1.005-1.030) 08/18/25 17:38 Urine Protein Negative (Negative) 08/18/25 17:38 Urine Glucose (UA) Negative (Normal) 08/18/25 17:38 Urine Ketones Negative (Negative) 08/18/25 17:38 Urine Blood Negative (Negative) 08/18/25 17:38 Urine Nitrate Negative (Negative) 08/18/25 17:38 Urine Bilirubin Negative (Negative) 08/18/25 17:38 Urine Urobilinogen 0.2 mg/dL (Negative) 08/18/25 17:38 Ur Leukocyte Esterase Negative (Negative) 08/18/25 17:38 Amorphous Sediment Not Reportable 08/18/25 17:38 Urine Opiates Screen Negative ng/mL (Negative) 08/18/25 17:38 Ur Barbiturates Screen Negative ng/mL (Negative) 08/18/25 17:38 Ur Phencyclidine Scrn Negative ng/mL (Negative) 08/18/25 17:38 Ur Amphetamines Screen Negative ng/mL (Negative) 08/18/25 17:38 U Benzodiazepines Scrn Negative ng/mL (Negative) 08/18/25 17:38 Urine Cocaine Screen Negative ng/mL (Negative) 08/18/25 17:38 U Marijuana (THC) Screen Negative ng/mL (Negative) 08/18/25 17:38 Ethyl Alcohol < 10 mg/dL (0-10) 08/18/25 17:29 Influenza A (PCR) Negative (Negative) 08/18/25 17:35 Influenza Type B (PCR) Negative (Negative) 08/18/25 17:35 RSV (PCR) Negative (Negative) 08/18/25 17:35 SARS-CoV-2 (PCR) Negative (Negative) 08/18/25 17:35 All radiology interpretation(s) finalized by discharge EKG Data EKG 1: Interpretation: Atrial fib, controlled rate at 83, no ST segment elevation Discharge Plan Discharge Patient Disposition: Xfer Cust/Supp Care Facility Clinical Impression: Toxic encephalopathy Qualifiers: Toxic encephalopathy cause: unspecified toxin Qualified Code(s): G92.9 - Unspecified toxic encephalopathy Condition: Stable Prescriptions: No Action ascorbic acid (vitamin C) 500 mg tablet 500 mg PO DAILY ferrous gluconate 324 mg (38 mg iron) tablet 324 mg PO DAILY pantoprazole 40 mg tablet,delayed release (DR/EC) 40 mg PO DAILY Women's 50+ Daily Form (gkb) 1 tab PO DAILY furosemide 40 mg tablet 40 mg PO DAILY levothyroxine 50 mcg tablet 50 mcg PO QAM olanzapine 5 mg tablet,disintegrating 5 mg PO QPM PRN (Reason: Agitation and confusion) Qty: 30 0RF atorvastatin 40 mg tablet 40 mg PO BEDTIME tamsulosin 0.4 mg capsule 0.4 mg PO BEDTIME metoprolol succinate 25 mg tablet extended release 24 hr 37.5 mg PO QAM duloxetine 30 mg capsule,delayed release(DR/EC) 30 mg PO DAILY Discharge Orders: Discharge ED (Routine); Ordered 08/18/25 Ordered By: Ghazala Cardenas Referrals: Malik Weathers MD [Primary Care Provider, Family Practice] Discharge Activity: Resume usual activity Patient Instructions: Altered Mental Status (ED), Patient Portal & Kalie Instructions Activity Restrictions/Additional Instructions: -No narcotics (Tramadol) -Follow up with facility doctor -Return to ED for further issues Print Language: Gibraltarian Coding Level of Care Code ED Extrusion Supervisor for Yolanda Forman
[2025-08-18 17:36] LABS: Hematocrit 34.3 % (36-47); Hemoglobin 10.50 g/dL (11.27-16.99); Mean Corpuscular HGB Conc 30.6 g/dL (30-55); Mean Corpuscular Hemoglobin 28.8 pg (27-33); Mean Corpuscular Volume 94.0 fl (85-98); Nucleated Red Blood Cells % 0 %; Platelet Count 258 10^3/cmm (157-399); Red Blood Count 3.65 10^6/uL (3.85-5.65); White Blood Count 6.87 10^3/uL (3.29-11.43)
--- NOTE | 2025-08-18 17:39 | ECG_ITS ---
[facility] 2025[facility]18 Pat Name: Shankar Cam Department: Room: Gender: Female Skilled Nursing Professional: : 1940 Requested By: Ghazala Cardenas Order Number: [id number] Reading MD: LIZETTE RAZA Measurements Intervals [place] Rate: 83 P: 0 VA: 0 QRS: 9 QRSD: 82 T: -18 QT: 358 QTc: 423 Interpretive Statements ATRIAL FIBRILLATION ABNORMAL RHYTHM ECG Compared to ECG 07/26/2025 15:47:48 ST (T wave) deviation no longer present Electronically Signed On 08-20-2025 23:19:06 CDT by LIZETTE RAZA [email or web address]
[2025-08-18 17:44] LABS: Add Urine Microscopic? NO
[2025-08-18 17:47] LABS: Glucose Urine UA Negative (Normal); Nitrate Urine Negative (Negative); Specific Gravity, Urine 1.014 (1.005-1.030)
[2025-08-18 17:49] LABS: Lactic Sepsis W/Reflex 1.3 mmol/L (0.5-2.2)
[2025-08-18 17:50] LABS: Alanine Aminotransferase 23 U/L (0-33); Albumin Level 3.7 g/dL (3.5-5.2); Alkaline Phosphatase 192 U/L (35-105); Anion Gap 14.0 (5-19); Aspartate Amino Transferase 30 U/L (0-32); Blood Urea Nitrogen 20 mg/dL (8-23); Calcium 9.2 mg/dL (8.5-10.5); Carbon Dioxide 30 mmol/L (22-29); Chloride 100 mmol/L (98-107); Creatinine Clr Calc Pharmacy 38.2555; Globulin 4.2 g/dL (1.3-4.6); Glucose 167 mg/dL (65-115); Osmolality Calculated 296 mOsm/kg (285-295); Potassium 4.0 mmol/L (3.5-5.1); Sodium 140 mmol/L (136-145); Total Protein 7.9 g/dL (6.6-8.7)
[2025-08-18 17:52] LABS: Alcohol Level < 10 mg/dL (0-10)
[2025-08-18 17:54] LABS: PCP Screen Urine Negative (Negative)
[2025-08-18 17:54] LABS: Ammonia 12 umol/L (11-51)
[2025-08-18 17:58] LABS: Charge for UA Resulting for Rev
[2025-08-18 18:23] VITALS: BP 126/74; PULSE 78; O2SAT 97
--- NOTE | 2025-08-18 18:26 | CTR_ITS ---
PROCEDURE INFORMATION: Exam: CT Head Without Contrast Exam date and time: 08/18/2025 6:53 PM Age: 85 years old Clinical indication: Altered mental status/memory loss; Confusion or disorientation; Additional info: Altered mentation TECHNIQUE: Imaging protocol: Computed tomography of the head without contrast. Radiation optimization: All CT scans at this facility use at least one of these dose optimization techniques: automated exposure control; mA and/or kV adjustment per patient size (includes targeted exams where dose is matched to clinical indication); or iterative reconstruction. COMPARISON: CT head wo con* [id number] 06/02/2021 2:19 AM RADIATION DOSE METRICS: Total DLP (mGy-cm): 1067.58 FINDINGS: Brain: Chronic small-vessel ischemic change. Few lacunar foci in the basal ganglia, nonspecific although commonly chronic. Focus of encephalomalacia in the right parietal lobe laterally. Cerebral ventricles: Moderate involutional changes of the ventricles and sulci. Paranasal sinuses: Visualized sinuses are unremarkable. No fluid levels. Mastoid air cells: Visualized mastoid air cells are well aerated. Bones: Unremarkable. No acute fracture. Soft tissues: Unremarkable. CT/CT head wo con* [id number] IMPRESSION: No acute intracranial abnormality. Chronic findings as above.
[2025-08-18 18:49] LABS: Respiratory Syncytial Virus Ce NEGATIVE (Negative); SARS-CoV-2 PCR NEGATIVE (Negative)
[2025-08-18] MEDS: methylPREDNISolone sod succ 125 mg/2 mL INJ 80 MG IVP (19:05)
[2025-08-18 19:22] LABS: Procalcitonin 0.06 ng/mL (0-0.5)
[2025-08-18 20:03] VITALS: BP 146/85; PULSE 78; RESP 20; O2SAT 99
== END 2025-08-18 20:05 | disposition intermediate care facility (04) ==
PROVIDERS: Emergency Provider Physician Assistant; PCP Family Medicine
DX: G92.9 Unspecified toxic encephalopathy (principal); Z11.52 Encounter for screening for COVID-19; Z87.891 Personal history of nicotine dependence; Z95.1 Presence of aortocoronary bypass graft; I25.10 Atherosclerotic heart disease of native coronary artery without angina pectoris; E78.5 Hyperlipidemia, unspecified; J44.9 Chronic obstructive pulmonary disease, unspecified; I50.9 Heart failure, unspecified; Z99.81 Dependence on supplemental oxygen; Z85.038 Personal history of other malignant neoplasm of large intestine
CPT/HCPCS: 70450; 71045; 80053; 80306; 80307; 81003; 82140; 83605; 84145; 85025; 87637; 93005; 96374; 99285; J2919

== ENCOUNTER 2025-08-22 11:44 | Outpatient (CLI) | payer MEDICARE, MEDICAID, SELFPAY ==
--- NOTE | 2025-08-22 11:55 | CTR_ITS ---
PROCEDURE INFORMATION: Exam: CT Lumbar Spine Without Contrast Exam date and time: 08/22/2025 12:01 PM Age: 85 years old Clinical indication: Injury or trauma; Fall TECHNIQUE: Imaging protocol: Computed tomography of the lumbar spine without contrast. Radiation optimization: All CT scans at this facility use at least one of these dose optimization techniques: automated exposure control; mA and/or kV adjustment per patient size (includes targeted exams where dose is matched to clinical indication); or iterative reconstruction. COMPARISON: CT lumbar spine wo con* [id number] 07/28/2023 12:03 PM RADIATION DOSE METRICS: Total DLP (mGy-cm): 383.7 FINDINGS: Bones/joints: Transitional lumbosacral anatomy with partial sacralization of the L5. Rudimentary/diminutive ribs at T12. There is a compression deformity of the T12 vertebral body with aproximately 90% vertebral body height loss. The degree of height loss is not significantly changed compared to 202. There is an underlying lytic lesion at this level. There is slight bony retropulsion which appears unchanged compared to CT from 2022. There is a compression deformity of the L2 vertebral body with approximately 50% vertebral body height loss. There has not been significant progressive height loss compared to exam from 2022. There is a compression deformity of the L3 vertebral body with approximately 40% vertebral body loss. This is new compared to 202. Degenerative changes of the lumbar spine. There is up to moderate spinal canal narrowing of the L2-L3, L3-L4 and L4-L5 levels. There is up to moderate neural foraminal narrowing bilaterally at the L2-L3 level. Soft tissues: Unremarkable. CT/CT lumbar spine wo con* [id number] IMPRESSION: 1. There is L3 compression deformity with a proximally 40% vertebral body height loss which is new compared to 202, age indeterminate on this exam. 2. Compression deformities involving the T12 and L2 vertebral bodies are not significantly changed compared to 2023.
== END 2025-08-22 11:45 | disposition home or self-care (01) ==
LOC: RAD 11:46
PROVIDERS: PCP Family Medicine; Visit Provider Physician Assistant
DX: S39.92XA Unspecified injury of lower back, initial encounter (principal); W19.XXXA Unspecified fall, initial encounter; Q76.49 Other congenital malformations of spine, not associated with scoliosis; Q79.9 Congenital malformation of musculoskeletal system, unspecified; M47.816 Spondylosis without myelopathy or radiculopathy, lumbar region; M48.061 Spinal stenosis, lumbar region without neurogenic claudication
CPT/HCPCS: 72131

== ENCOUNTER → 2025-09-06 10:47 | Outpatient (BNVA) | payer MEDICARE, MEDICAID, SELFPAY | PROVIDERS: PCP Family Medicine; Visit Provider Dermatology | DX: D48.5 Neoplasm of uncertain behavior of skin (principal); L57.8 Other skin changes due to chronic exposure to nonionizing radiation; L85.3 Xerosis cutis; L57.0 Actinic keratosis | CPT/HCPCS: 17000; 99203 ==

== ENCOUNTER → 2025-09-07 08:51 | Outpatient (BNVA) | payer MEDICARE, MEDICAID, SELFPAY | PROVIDERS: PCP Family Medicine; Visit Provider Orthopaedic Surgery | DX: M54.9 Dorsalgia, unspecified (principal) | CPT/HCPCS: 72100; 99213 ==

== ENCOUNTER → 2025-10-11 09:06 | Outpatient (BNVA) | payer MEDICARE, MEDICAID, SELFPAY | PROVIDERS: PCP Family Medicine; Visit Provider Dermatology | DX: L57.8 Other skin changes due to chronic exposure to nonionizing radiation (principal); L81.4 Other melanin hyperpigmentation; D48.5 Neoplasm of uncertain behavior of skin | CPT/HCPCS: 11102; 99213 ==

== ENCOUNTER → 2025-10-24 14:37 | Outpatient (BNVA) | payer MEDICARE, MEDICAID, SELFPAY | PROVIDERS: PCP Family Medicine; Referring Provider Family Medicine; Visit Provider Internal Medicine | DX: J84.10 Pulmonary fibrosis, unspecified (principal); J96.10 Chronic respiratory failure, unspecified whether with hypoxia or hypercapnia; Z99.81 Dependence on supplemental oxygen; I27.20 Pulmonary hypertension, unspecified; I48.20 Chronic atrial fibrillation, unspecified; Z87.891 Personal history of nicotine dependence; J84.9 Interstitial pulmonary disease, unspecified; J44.9 Chronic obstructive pulmonary disease, unspecified | CPT/HCPCS: 36415; 82103; 82164; 85651; 86036; 86225; 86235; 86431; 99204; Q3014 ==

== ENCOUNTER → 2025-10-25 13:20 | Outpatient (BNVA) | payer MEDICARE, MEDICAID, SELFPAY | PROVIDERS: PCP Family Medicine; Visit Provider Dermatology | DX: C44.329 Squamous cell carcinoma of skin of other parts of face (principal) | CPT/HCPCS: 11644; 13132 ==